=== PATIENT | female | born 1955 | race Two or more races ===

== ENCOUNTER 2023-09-21 13:52 | Inpatient (IN) | payer MEDICAID, MEDICARE, OTHER ==
[~2023-09-21] VITALS: Ht 152.4 cm; Wt 58.1 kg
[~2023-09-21 13:52] MED LIST: AUG875T PO; BLOO1KIT60 XX; EMPA1TAB PO; FURO1TAB31 PO; METF-370 PO; METH4PAK PO
[2023-09-21] MEDS: SODIUM CHLORIDE 0.9% 1,000 ML IV ONE (14:15)
[2023-09-21 15:26] LABS: Alanine Aminotransferase 21 U/L (7-40); Alkaline Phosphatase 142 U/L (46-116); Anion Gap 10 (5-15); Aspartate Aminotransferase 28 U/L (13-40); Basophils # (auto) 0 10 ^3/uL (0-0.2); Basophils % (auto) 0.2 % (0.0-2.0); Calcium 8.7 mg/dL (8.7-10.4); Carbon Dioxide 22 mmol/L (20-30); Chloride 88 mmol/L (98-107); Eosinophils # (auto) 0.1 10 ^3/uL (0-0.8); Eosinophils % (auto) 0.5 % (0.0-7.0); Hematocrit 40.9 % (36.0-46.0); Hemoglobin 13.4 g/dL (12.2-16.2); Lymphocytes # (auto) 0.8 10 ^3/uL (0.4-5.4); Lymphocytes % (auto) 7.6 % (10.0-50.0); Magnesium 2.4 mg/dL (1.6-2.6); Mean Corpuscular Hemoglobin 25.5 pg (28.0-32.0); Mean Corpuscular Hgb Conc. 32.8 g/dL (32.0-36.0); Mean Corpuscular Volume 77.9 fL (80.0-100.0); Monocytes # (auto) 0.6 10 ^3/uL (0-1.3); Monocytes % (auto) 5.5 % (0.0-12.0); Neutrophils # (auto) 9.3 10 ^3/uL (1.6-8.6); Neutrophils % (auto) 86.2 % (37.0-80.0); Potassium 5.3 mmol/L (3.5-5.1); Red Blood Cells 5.25 10^6/uL (4.0-5.20); Sodium 120 mmol/L (136-145); White Blood Cell 10.8 10^3/uL (4.4-10.8)
[2023-09-21 15:27] LABS: Bilirubin, Total 0.5 mg/dL (0.2-1.0); Red Cell Distribution Width 25.1 % (11.8-14.3)
[2023-09-21 15:37] LABS: Blood Urea Nitrogen 83 mg/dL (9-23)
[2023-09-21 15:38] LABS: Glucose 434 mg/dL (74-106)
[2023-09-21] MEDS ORDERED: ACETAMINOPHEN 325 MG TAB PO PRN (16:30)
[2023-09-21] MEDS ORDERED: NITROGLYCERIN 0.4 MG SL TAB SL PRN (16:30)
[2023-09-21] MEDS: SODIUM CHLORIDE 0.9% 500 ML IV ONE (16:30)
[2023-09-21] MEDS ORDERED: DEXTROSE (50%) 50ML SYRG IV PRN (16:30)
[2023-09-21] MEDS ORDERED: MORPHINE SULFATE INJ 2 MG/ml SYRG IV PRN (16:30)
[2023-09-21 17:37] LABS: Platelet Estimate Adequate
[2023-09-21 17:38] LABS: Anisocytosis Moderate
[2023-09-21] MEDS: ACCU-CHEK COMFORT CURVE STRIP VI SCH (18:15)
[2023-09-21] MEDS: SODIUM CHLORIDE 0.9% 1,000 ML IV SCH (18:21)
[2023-09-21] MEDS: InsuLIN REG 1unit/0.01ml Soln (100units/ml) SC SCH ×2 (18:22→23:24)
[2023-09-21] MEDS: HEPARIN SODIUM (PORCINE) 5000 UNITS/ML 1ML VIAL SC SCH (23:14)
[2023-09-22] MEDS: PHENYLEPHRINE IV 250 ML IV SCH (00:12)
[2023-09-22 01:30] VITALS: PULSE 90; RESP 17; O2SAT 96
[2023-09-22 01:54] LABS: Creatinine, Urine 35.44 mg/dL (30.0-125.0)
[2023-09-22 01:56] LABS: Urine Bacteria FEW /hpf (None Seen); Urine Blood 1+ /uL (Negative); Urine Clarity HAZY (Clear); Urine Color Colorless (Yellow); Urine Mucus FEW (None Seen); Urine Protein, UAD TRACE (Negative); Urine Specific Gravity 1.009 (1.001-1.035); Urine Urobilinogen Normal (Negative); Urine WBC 68 /hpf (0 - 5); Urine pH 5.5 (5.0-8.0)
[2023-09-22 05:42] LABS: Alanine Aminotransferase 15 U/L (7-40); Albumin 3.7 g/dL (3.2-4.8); Alkaline Phosphatase 109 U/L (46-116); Anion Gap 10 (5-15); Aspartate Aminotransferase 39 U/L (13-40); BUN/Creatinine Ratio 34.2 (10.0-20.0); Calcium 8.9 mg/dL (8.5-10.1); Carbon Dioxide 22 mmol/L (20-30); Chloride 97 mmol/L (98-107); Glucose 67 mg/dL (74-106); Potassium 4.3 mmol/L (3.5-5.1)
[2023-09-22 05:43] LABS: Bilirubin, Total 0.5 mg/dL (0.2-1.0); Total Protein 7.5 g/dL (5.7-8.2)
[2023-09-22 06:01] LABS: Blood Urea Nitrogen 66 mg/dL (9-23); Sodium 129 mmol/L (136-145)
[2023-09-22 11:30] LABS: Chloride 98 mmol/L (98-107); Potassium 4.7 mmol/L (3.5-5.1); Sodium 128 mmol/L (136-145)
[2023-09-22 11:31] LABS: Anion Gap 7 (5-15); Calcium 8.7 mg/dL (8.5-10.1); Carbon Dioxide 23 mmol/L (20-30)
[2023-09-22] MEDS: SODIUM CHLORIDE 0.9% 500 ML IV ONE (11:34)
[2023-09-22 11:36] LABS: BUN/Creatinine Ratio 24.7 (10.0-20.0); Glucose 283 mg/dL (74-106)
[2023-09-22 11:37] LABS: Blood Urea Nitrogen 49 mg/dL (9-23)
[2023-09-22 11:54] LABS: Protein, Urine 30.5 mg/dL (0.0-11.9)
[2023-09-22 11:57] LABS: Creatinine, Urine 37.06 mg/dL (30.0-125.0); Urine Protein/Creatinine Ratio 0.82
[2023-09-22] MEDS: SODIUM CHLORIDE 0.9% 1,000 ML IV SCH (13:13)
[2023-09-22] MEDS: cefTRIAXone 1GM/50ML D5W 50 ML IV ONE (13:25)
[2023-09-22] MEDS: CLINDAMYCIN 600MG IV 50 ML IV SCH (14:38)
[2023-09-22 19:30] VITALS: PULSE 98; RESP 18; O2SAT 97
[2023-09-23] MEDS: INSULIN LANTUS (GLARGINE) 1 /0.01ml (100units/ml) SC SCH (00:12)
[2023-09-23 06:35] LABS: Urine Bacteria FEW /hpf (None Seen); Urine Blood 3+ /uL (Negative); Urine Clarity HAZY (Clear); Urine Color Colorless (Yellow); Urine Hyaline Cast FEW /lpf (0 - 2); Urine Protein, UAD 1+ (Negative); Urine Specific Gravity 1.017 (1.001-1.035); Urine Urobilinogen Normal (Negative); Urine WBC 93 /hpf (0 - 5); Urine WBC Clumps PRESENT /hpf (None Seen)
[2023-09-23 07:34] LABS: Basophils # (auto) 0 10 ^3/uL (0-0.2); Basophils % (auto) 0.3 % (0.0-2.0); Eosinophils # (auto) 0.1 10 ^3/uL (0-0.8); Hemoglobin 12.5 g/dL (12.2-16.2); Lymphocytes # (auto) 1.3 10 ^3/uL (0.4-5.4); Mean Corpuscular Hgb Conc. 32.9 g/dL (32.0-36.0); Monocytes # (auto) 0.8 10 ^3/uL (0-1.3); Red Blood Cells 4.85 10^6/uL (4.0-5.20)
[2023-09-23 07:36] LABS: Eosinophils % (auto) 0.6 % (0.0-7.0); Lymphocytes % (auto) 13.2 % (10.0-50.0); Mean Corpuscular Hemoglobin 25.7 pg (28.0-32.0); Mean Corpuscular Volume 78.3 fL (80.0-100.0); Monocytes % (auto) 7.6 % (0.0-12.0); Neutrophils # (auto) 7.8 10 ^3/uL (1.6-8.6); Neutrophils % (auto) 78.3 % (37.0-80.0); Red Cell Distribution Width 24.6 % (11.8-14.3)
[2023-09-23 07:42] LABS: Chloride 106 mmol/L (98-107); Potassium 4.3 mmol/L (3.5-5.1)
[2023-09-23 07:43] LABS: Anion Gap 7 (5-15); Calcium 8.7 mg/dL (8.5-10.1); Carbon Dioxide 22 mmol/L (20-30); Sodium 135 mmol/L (136-145)
[2023-09-23 07:48] LABS: BUN/Creatinine Ratio 29.1 (10.0-20.0); Glucose 95 mg/dL (74-106)
[2023-09-23 07:49] LABS: Blood Urea Nitrogen 37 mg/dL (9-23)
[2023-09-23 08:19] VITALS: PULSE 86; RESP 20; O2SAT 96
[2023-09-23] MEDS: cefTRIAXone 1GM/50ML D5W 50 ML IV SCH (10:11)
[2023-09-23 10:23] LABS: INR 1.02 (0.9-1.15); Partial Thromboplastin Time 26.7 SEC (24.5-34.5); Prothrombin Time 10.7 sec (9.3-11.8)
[2023-09-23 12:22] VITALS: PULSE 60; RESP 16; O2SAT 94
[2023-09-23 13:00] VITALS: BP 107/36; PULSE 88; RESP 19; TEMP 97.5; O2SAT 100
[2023-09-23 17:00] VITALS: BP 128/70; PULSE 100; RESP 16; TEMP 98.6; O2SAT 96
[2023-09-23 20:00] VITALS: PULSE 82; PULSE 85; PULSE 87; RESP 18; TEMP 37
[2023-09-23 22:00] VITALS: BP 115/56; PULSE 104; RESP 20; TEMP 98.3; O2SAT 96
[2023-09-24 05:00] VITALS: BP 161/78; PULSE 78; RESP 18; TEMP 97.8; O2SAT 98
[2023-09-24 05:51] LABS: Alanine Aminotransferase 14 U/L (7-40); Albumin 2.9 g/dL (3.2-4.8); Alkaline Phosphatase 108 U/L (46-116); Anion Gap 6 (5-15); Aspartate Aminotransferase 24 U/L (13-40); BUN/Creatinine Ratio 14.5 (10.0-20.0); Bilirubin, Total 0.4 mg/dL (0.2-1.0); Blood Urea Nitrogen 16 mg/dL (9-23); Calcium 8.1 mg/dL (8.7-10.4); Carbon Dioxide 17 mmol/L (20-30); Chloride 108 mmol/L (98-107); Glucose 205 mg/dL (74-106); Potassium 4.6 mmol/L (3.5-5.1); Sodium 131 mmol/L (136-145); Total Protein 6.4 g/dL (5.7-8.2)
[2023-09-24 08:00] VITALS: PULSE 89; RESP 16
[2023-09-24 09:04] VITALS: BP 134/72; PULSE 67; RESP 21; TEMP 97.6; O2SAT 98
[2023-09-24] MEDS: SODIUM BICARB 50mEq/50ml Vial 50 ML in SOD CHL 0.45% 1,000 ML IV SCH (11:30)
[2023-09-24] MEDS: BUMETANIDE 1mg/4ml VIAL (0.25mg/ml) IV ONE (11:57)
[2023-09-24 13:29] VITALS: BP 158/76; PULSE 81; RESP 19; TEMP 97.9; O2SAT 97
[2023-09-24] MEDS: levoFLOXacin 500 MG TAB PO ONE (14:31)
[2023-09-24 20:00] VITALS: BP 104/57; PULSE 104; PULSE 93; RESP 16; TEMP 97.7; O2SAT 98
[2023-09-25] VITALS (7 sets, daily range): BP systolic 119–149; BP diastolic 60–82; PULSE 68–90; RESP 16–20; TEMP 97.6–98.4; O2SAT 96–99
[2023-09-25] MEDS ORDERED: LISI10TA34 PO (09:12)
[2023-09-25] MEDS: levoFLOXacin 500 MG TAB PO SCH (10:34)
[2023-09-25] MEDS: IBUPROFEN 600 MG TAB PO PRN (18:22)
[2023-09-25 21:22] LABS: COVID19 ANTIGEN SOFIA FIA NEGATIVE (NEGATIVE)
[2023-09-25] MEDS: SODIUM BICARBONATE 650 MG TAB PO SCH (21:45)
[2023-09-26 05:00] VITALS: BP 139/68; PULSE 73; RESP 16; TEMP 97.3; O2SAT 95
[2023-09-26 07:30] VITALS: BP 139/68; PULSE 73; PULSE 79; RESP 16; TEMP 98.2; O2SAT 95
[2023-09-26 09:00] VITALS: BP 120/70; PULSE 101; RESP 20; TEMP 98; O2SAT 95
[2023-09-26 09:27] LABS: Chloride 104 mmol/L (98-107); Potassium 4.6 mmol/L (3.5-5.1); Sodium 131 mmol/L (136-145)
[2023-09-26 09:29] LABS: Anion Gap 8 (5-15); Calcium 8.9 mg/dL (8.5-10.1); Carbon Dioxide 19 mmol/L (20-30)
[2023-09-26 09:34] LABS: BUN/Creatinine Ratio 12.2 (10.0-20.0); Blood Urea Nitrogen 12 mg/dL (9-23); Glucose 126 mg/dL (74-106)
[2023-09-26 13:00] VITALS: BP 148/87; PULSE 88; RESP 20; TEMP 98.4; O2SAT 97
[2023-09-26 15:18] VITALS: BP 134/72; PULSE 73; RESP 16; TEMP 36.7; O2SAT 95
== END 2023-09-26 16:50 | DRG 637 ==
LOC: ER 13:52 → TELE 16:31 → TELE-CENTR 16:31 → TELE-EAST 23:52 → TELE 09-22 00:19 → TELE-CENTR 09-23 12:04
PROVIDERS: ADMIT Nurse Practitioner Family; ATTEND Family Medicine
PROC: 05HC33Z Insertion of Infusion Device into Left Basilic Vein, Percutaneous Approach (ICD-10-PCS; principal; 2023-09-25)
PROC: B54NZZA Ultrasonography of Left Upper Extremity Veins, Guidance (ICD-10-PCS; 2023-09-25)
DX: E11.65 Type 2 diabetes mellitus with hyperglycemia (principal); I21.A1 Myocardial infarction type 2; N17.0 Acute kidney failure with tubular necrosis; L97.919 Non-pressure chronic ulcer of unspecified part of right lower leg with unspecified severity; L03.115 Cellulitis of right lower limb; E87.1 Hypo-osmolality and hyponatremia; N13.6 Pyonephrosis; E87.20 Acidosis, unspecified; L03.116 Cellulitis of left lower limb; L97.929 Non-pressure chronic ulcer of unspecified part of left lower leg with unspecified severity; E11.22 Type 2 diabetes mellitus with diabetic chronic kidney disease; E86.0 Dehydration; Z20.822 Contact with and (suspected) exposure to COVID-19; E87.5 Hyperkalemia; N30.81 Other cystitis with hematuria; N81.3 Complete uterovaginal prolapse; B96.1 Klebsiella pneumoniae [K. pneumoniae] as the cause of diseases classified elsewhere; I12.9 Hypertensive chronic kidney disease with stage 1 through stage 4 chronic kidney disease, or unspecified chronic kidney disease; N18.9 Chronic kidney disease, unspecified; I51.7 Cardiomegaly; Z88.6 Allergy status to analgesic agent; Z80.0 Family history of malignant neoplasm of digestive organs; E11.621 Type 2 diabetes mellitus with foot ulcer
CPT/HCPCS: 36415; 71045; 74176; 76775; 76856; 80048; 80053; 81001; 82010; 82306; 82570; 82962; 83036; 83605; 83735; 83880; 83930; 83970; 84100; 84156; 84300; 84484; 85025; 85610; 85730; 87040; 87086; 87088; 87186; 87426; 93925; 97110; 97116; 97163; 99291; G0378; J1815; J3490

== ENCOUNTER → 2024-01-16 | Outpatient (CLI) | payer MEDICARE, MEDICAID ==
[~2024-01-16] MED LIST changes: -AUG875T PO; -BLOO1KIT60 XX; +CARV-216 PO; +INSREG3 SC; -METH4PAK PO; +SACU1TAB7 PO
[2024-01-16 14:30] LABS: Urine Bacteria FEW /hpf (None Seen); Urine Blood Negative /uL (Negative); Urine Clarity Turbid (Clear); Urine Color Yellow (Yellow); Urine Hyaline Cast FEW /lpf (0 - 2); Urine Mucus FEW (None Seen); Urine Protein, UAD 1+ (Negative); Urine Specific Gravity 1.033 (1.001-1.035); Urine Urobilinogen Normal (Negative); Urine WBC 23 /hpf (0 - 5); Urine pH 5.5 (5.0-9.0)
[2024-01-16 14:35] LABS: Alanine Aminotransferase 23 U/L (7-40); Alkaline Phosphatase 115 U/L (46-116); Anion Gap 5 (5-15); Aspartate Aminotransferase 13 U/L (13-40); BUN/Creatinine Ratio 17.6 (10.0-20.0); Blood Urea Nitrogen 22 mg/dL (9-23); Calcium 9.7 mg/dL (8.5-10.1); Carbon Dioxide 26 mmol/L (20-30); Chloride 109 mmol/L (98-107); Glucose 181 mg/dL (74-106); Potassium 4.2 mmol/L (3.5-5.1); Sodium 140 mmol/L (136-145)
[2024-01-16 14:36] LABS: Albumin 4.3 g/dL (3.2-4.8); Bilirubin, Total 0.4 mg/dL (0.2-1.0); Creatine Kinase IFCC 69 U/L (34-145); Total Protein 7.8 g/dL (5.7-8.2)
== END | disposition home or self-care (01) ==
LOC: LAB 13:41
PROVIDERS: ATTEND Internal Medicine
DX: Z12.11 Encounter for screening for malignant neoplasm of colon (principal); Z11.59 Encounter for screening for other viral diseases; E11.22 Type 2 diabetes mellitus with diabetic chronic kidney disease; E11.69 Type 2 diabetes mellitus with other specified complication; E11.29 Type 2 diabetes mellitus with other diabetic kidney complication; N18.9 Chronic kidney disease, unspecified; R82.90 Unspecified abnormal findings in urine; E78.2 Mixed hyperlipidemia; I25.10 Atherosclerotic heart disease of native coronary artery without angina pectoris
CPT/HCPCS: 36415; 80053; 81001; 82550; 86803

== ENCOUNTER → 2024-03-08 | Outpatient (CLI) | payer MEDICARE, MEDICAID | END | disposition home or self-care (01) | LOC: LAB 15:12 | PROVIDERS: ATTEND Internal Medicine | DX: Z12.11 Encounter for screening for malignant neoplasm of colon (principal); Z11.59 Encounter for screening for other viral diseases; E11.22 Type 2 diabetes mellitus with diabetic chronic kidney disease; N18.9 Chronic kidney disease, unspecified; E78.2 Mixed hyperlipidemia; E11.29 Type 2 diabetes mellitus with other diabetic kidney complication; R82.90 Unspecified abnormal findings in urine; E11.9 Type 2 diabetes mellitus without complications; I25.10 Atherosclerotic heart disease of native coronary artery without angina pectoris | CPT/HCPCS: 82274 ==

== ENCOUNTER → 2024-04-25 | Day surgery (SDC) | payer MEDICARE, MEDICAID ==
[2024-04-19 10:30] LABS: Urine Bacteria None Seen /hpf (None Seen)
[2024-04-19 11:05] LABS: Basophils # (auto) 0 10 ^3/uL (0-0.2); Basophils % (auto) 0.4 % (0.0-2.0); Eosinophils # (auto) 0.1 10 ^3/uL (0-0.8); Eosinophils % (auto) 0.9 % (0.0-7.0); Hematocrit 42.6 % (36.0-46.0); Hemoglobin 14.7 g/dL (12.2-16.2); Lymphocytes # (auto) 1.4 10 ^3/uL (0.4-5.4); Lymphocytes % (auto) 14.3 % (10.0-50.0); Mean Corpuscular Hemoglobin 32.7 pg (28.0-32.0); Mean Corpuscular Hgb Conc. 34.4 g/dL (32.0-36.0); Monocytes # (auto) 0.6 10 ^3/uL (0-1.3); Monocytes % (auto) 5.9 % (0.0-12.0); Neutrophils # (auto) 7.6 10 ^3/uL (1.6-8.6); Neutrophils % (auto) 78.5 % (37.0-80.0); Nucleated Red Blood Cells % 0.1 %; Platelet Count (auto) 310 10^3/uL (140-450); Red Blood Cells 4.49 10^6/uL (4.0-5.20); White Blood Cell 9.6 10^3/uL (4.4-10.8)
[2024-04-19 11:22] LABS: INR 1.02 (0.9-1.15); Partial Thromboplastin Time 26.8 SEC (24.5-34.5); Prothrombin Time 10.8 sec (9.3-11.8)
[2024-04-19 11:45] LABS: Urine Blood Negative /uL (Negative); Urine Clarity Clear (Clear); Urine Color Light-Yellow (Yellow); Urine Hyaline Cast FEW /lpf (0 - 2); Urine Protein, UAD Negative (Negative); Urine Specific Gravity 1.012 (1.001-1.035); Urine Urobilinogen Normal (Negative); Urine WBC 1 /hpf (0 - 5); Urine pH 5.5 (5.0-9.0)
[2024-04-19 11:53] LABS: Alanine Aminotransferase 41 U/L (7-40); Albumin 4.6 g/dL (3.2-4.8); Alkaline Phosphatase 139 U/L (46-116); Aspartate Aminotransferase 38 U/L (13-40); BUN/Creatinine Ratio 18.5 (10.0-20.0); Bilirubin, Total 0.4 mg/dL (0.2-1.0); Blood Urea Nitrogen 23 mg/dL (9-23); Chloride 102 mmol/L (98-107); Glucose 184 mg/dL (74-106); Potassium 3.6 mmol/L (3.5-5.1); Sodium 135 mmol/L (136-145); Total Protein 8.6 g/dL (5.7-8.2)
[2024-04-19 12:11] LABS: Anion Gap 12 (5-15); Carbon Dioxide 21 mmol/L (20-30)
[~2024-04-25] VITALS: Ht 152.4 cm; Wt 64.9 kg
[~2024-04-25] MED LIST changes: +ASPI1TAB20 PO; +ATOR-507 PO; +InsuLIN REG 1unit/0.01ml Soln (100units/ml) ONE; +LISI20TA56 PO; +MEPERIDINE HCL (25 MG/ML) 1ML VIAL ONE; +METH4TAB44 PO; +MIDAZOLAM HCL 2MG/2ML 2ml VIAL (1mg/ml) ONE; +MULT1POW PO; +PROPOFOL 10 MG/ML 20 ML IV ONE; -SACU1TAB7 PO; +fentaNYL CITRATE 100 MCG/2 ML VL ONE
[2024-04-25] MEDS: InsuLIN REG 1unit/0.01ml Soln (100units/ml) SC ONE (10:50)
[2024-04-25 12:05] VITALS: PULSE 81; RESP 14; TEMP 98.5; O2SAT 100
[2024-04-25 12:35] VITALS: BP 101/64; PULSE 86; RESP 15; O2SAT 99
== END | disposition home or self-care (01) ==
LOC: GI 08:52
PROVIDERS: ATTEND Internal Medicine Gastroenterology
DX: R19.5 Other fecal abnormalities (principal); D12.2 Benign neoplasm of ascending colon; D12.7 Benign neoplasm of rectosigmoid junction; K57.30 Diverticulosis of large intestine without perforation or abscess without bleeding; E11.9 Type 2 diabetes mellitus without complications; I10 Essential (primary) hypertension; Z88.8 Allergy status to other drugs, medicaments and biological substances; Z98.41 Cataract extraction status, right eye; Z98.42 Cataract extraction status, left eye; Z90.49 Acquired absence of other specified parts of digestive tract; Z79.82 Long term (current) use of aspirin; Z79.84 Long term (current) use of oral hypoglycemic drugs; Z79.899 Other long term (current) drug therapy; Z88.6 Allergy status to analgesic agent
CPT/HCPCS: 36415; 45385; 80053; 81001; 82962; 85025; 85610; 85730; 88305; J1815; J2175; J2250; J2704; J3010; J7030

== ENCOUNTER → 2024-05-21 | Outpatient (CLI) | payer MEDICARE, MEDICAID ==
[~2024-05-21] MED LIST changes: -InsuLIN REG 1unit/0.01ml Soln (100units/ml) ONE; -MEPERIDINE HCL (25 MG/ML) 1ML VIAL ONE; -MIDAZOLAM HCL 2MG/2ML 2ml VIAL (1mg/ml) ONE; -PROPOFOL 10 MG/ML 20 ML IV ONE; -fentaNYL CITRATE 100 MCG/2 ML VL ONE
[2024-05-21 10:11] LABS: Chloride 105 mmol/L (98-107); Potassium 4.1 mmol/L (3.5-5.1); Sodium 133 mmol/L (136-145)
[2024-05-21 10:12] LABS: Anion Gap 8 (5-15); Calcium 9.2 mg/dL (8.7-10.4); Carbon Dioxide 20 mmol/L (20-31)
[2024-05-21 10:17] LABS: BUN/Creatinine Ratio 16.4 (10.0-20.0); Blood Urea Nitrogen 20 mg/dL (9-23); Glucose 328 mg/dL (74-106)
== END | disposition home or self-care (01) ==
LOC: LAB 09:09
PROVIDERS: ATTEND Internal Medicine
DX: N17.9 Acute kidney failure, unspecified (principal)
CPT/HCPCS: 36415; 80048

== ENCOUNTER 2024-09-01 17:35 | Emergency (ER) | payer MEDICARE, MEDICAID ==
[~2024-09-01] VITALS: Ht 152.4 cm; Wt 68.2 kg
[2024-09-01 17:40] VITALS: BP 169/95; RESP 20; O2SAT 99
[2024-09-01 17:42] VITALS: PULSE 99
--- NOTE | 2024-09-01 17:46 | ECG ---
[facility] Test Date: 2024-09-01 Test Time: 17:42:30 Pat Name: PB CELESTIN Department: ED Room: Gender: F Machine Fixer: : 1955 Requested By: DIANA ANSARI Order Number: [id number] Reading MD: Measurements Intervals [place] Rate: 99 P: 63 [place]: 156 QRS: -7 QRSD: 101 T: 72 QT: 381 QTc: 489 Interpretive Statements Sinus rhythm Left atrial enlargement Borderline prolonged QT interval Please click the below link to view image of tracing.
--- NOTE | 2024-09-01 18:16 | DVH ---
CHEST RADIOGRAPH Indication: CP Technique: Single frontal view of the chest was obtained COMPARISON: XY CHEST PORTABLE on DOS: 09/22/23, XY CHEST XRAY 1 VIEW on DOS: 08/07/23, XY CHEST PORTABLE on DOS: 08/04/23 FINDINGS: Lines and Tubes: None Lungs: Clear Pleura: No effusion. No pneumothorax. Cardiomediastinal contours: Unremarkable Bones: Unremarkable IMPRESSION: No acute disease.
[2024-09-01 18:33] LABS: Basophils # (auto) 0.1 10 ^3/uL (0-0.2); Basophils % (auto) 0.4 % (0.0-2.0); Eosinophils # (auto) 0 10 ^3/uL (0-0.8); Hematocrit 46.1 % (36.0-46.0); Hemoglobin 15.3 g/dL (12.2-16.2); Lymphocytes # (auto) 0.7 10 ^3/uL (0.4-5.4); Lymphocytes % (auto) 3.8 % (10.0-50.0); Mean Corpuscular Hemoglobin 30.3 pg (28.0-32.0); Mean Corpuscular Hgb Conc. 33.3 g/dL (32.0-36.0); Mean Corpuscular Volume 91.3 fL (80.0-100.0); Monocytes # (auto) 0.3 10 ^3/uL (0-1.3); Monocytes % (auto) 1.7 % (0.0-12.0); Neutrophils % (auto) 94.1 % (37.0-80.0); Platelet Count (auto) 330 10^3/uL (140-450); Red Blood Cells 5.05 10^6/uL (4.0-5.20); Red Cell Distribution Width 14.1 % (11.8-14.3); White Blood Cell 18.1 10^3/uL (4.4-10.8)
[2024-09-01 18:47] LABS: INR 1.03 (0.9-1.15); Partial Thromboplastin Time 25.3 SEC (24.5-34.5); Prothrombin Time 10.9 sec (9.3-11.8)
[2024-09-01 19:12] LABS: Alanine Aminotransferase 25 U/L (7-40); Albumin 4.7 g/dL (3.2-4.8); Anion Gap 16 (5-15); Aspartate Aminotransferase 24 U/L (13-40); BUN/Creatinine Ratio 18.6 (10.0-20.0); Bilirubin, Total 0.7 mg/dL (0.2-1.0); Carbon Dioxide 23 mmol/L (20-31); Magnesium 2.2 mg/dL (1.6-2.6); Potassium 3.7 mmol/L (3.5-5.1)
[2024-09-01] MEDS ORDERED: ONDANSETRON HCL 4 MG/2 ML VIAL IV ONE (19:15)
[2024-09-01] MEDS ORDERED: SODIUM CHLORIDE 0.9% 1,000 ML IV ONE (19:15)
[2024-09-01 19:20] LABS: Alkaline Phosphatase 169 U/L (46-116); Blood Urea Nitrogen 24 mg/dL (9-23); Calcium 10.8 mg/dL (8.7-10.4); Chloride 95 mmol/L (98-107); Glucose 318 mg/dL (74-106); Sodium 134 mmol/L (136-145); Total Protein 9.3 g/dL (5.7-8.2)
--- NOTE | 2024-09-01 19:26 | ED.PDOC ---
HPI Comments 69 y.o male with PMHx of HTN and DM, presents to the ED via EMS for a chief complaint of chest pain associated with generalized weakness and blurred vision that presented earlier today. Patient reports symptoms came onset spontaneously, states she checked her BG at home and it read 470. Family present with patient reports patient has had frequent elevated BG readings the past couple of days. Patient denies any SOB, nausea, vomiting, diarrhea, fever, or chills. EMS reported on scene patient had a BG of 375. Chief Complaint: Chest Pain Time Seen by MD: 19:08 Primary Care Provider: UNKNOWN Reviewed Notes: Nurses Notes, Medications, Allergies Allergies: Coded Allergies: Acetaminophen (Verified Allergy, Severe, Hives, 08/09/23) Home Meds Reported Medications Multiple Vitamins W/ Minerals (Centrum Multivitamin Flav) 1 Pow Pow, 1 POW PO DAILY, POW 04/23/24 Aspirin (Aspir-81) 81 Mg Tab, 81 MG PO DAILY, TAB 04/23/24 Atorvastatin Calcium (Lipitor) 40 Mg Tab, 40 MG PO DAILY, TAB 04/23/24 Lisinopril (Lisinopril) 20 Mg Tab, 10 MG PO DAILY, TAB 04/23/24 Methylprednisolone (Methylprednisolone) 4 Mg Tab, 4 MG PO DAILY, TAB 04/23/24 Metformin Hydrochloride (Metformin Hcl) 500 Mg Tab, 1 TAB PO BID for DIABETES 12/20/23 Furosemide (Lasix) 40 Mg Tab, 1 TAB PO DAILY for CHF 12/20/23 Empagliflozin (Jardiance) 10 Mg Tab, 1 TAB PO DAILY for DIABETES 12/20/23 Insulin Regular (Human) (Humulin R) 100 Unit/Ml Inj, UNIT SC ACHS for PER SLIDING SCALE 12/18/23 Carvedilol (COREG) 12.5 Mg Tab, 1 TAB PO BID for HYPERTENSION 12/18/23 Information Source: Patient Mode of Arrival: EMS Severity: Moderate Timing: Hours Duration: Since onset Location: Substernal Radiation: No Radiation Quality: Aching Onset: At Rest Cardiac Risk Factors: HTN, Diabetes History of: None Associated Signs and Symptoms: Other Past Medical History PAST MEDICAL HISTORY: DM, HTN Surgical History: Denies all surgeries DIAL MOUNTER History: No Pertinent DIAL MOUNTER History Family History Family History: Reviewed,noncontributory to illness, No family hx of Cancer, No family hx of DM, No family hx of Heart kane, No family hx of HTN, No family hx ofKidney kane, No family hx of Liver kane, No family hx of Lung kane, No family hx of Stroke Social History Smoker: Non-Smoker Alcohol: Denies ETOH Use Drugs: Denies Drug Use Lives In: Home Constitutional: reports: weakness; denies: chills, diaphoresis, fatigue, fever, malaise, sweats, others EENTM: reports: blurred vision; denies: double vision, ear bleeding, ear discharge, ear drainage, ear pain, ear ringing, eye pain, eye redness, hearing loss, mouth pain, mouth swelling, nasal discharge, nose bleeding, nose congestion, nose pain, photophobia, tearing, throat pain, throat swelling, voice changes, others Respiratory: denies: cough, hemoptysis, orthopnea, SOB at rest, shortness of breath, SOB with excertion, stridor, wheezing, others Cardiovascular: reports: chest pain; denies: dizzy spells, diaphoresis, Dyspnea on exertion, edema, irregular heart beat, left arm pain, lightheadedness, palpitations, PND, syncope, others Gastrointestinal: denies: abdomen distended, abdominal pain, blood streaked bowels, constipated, diarrhea, dysphagia, difficulty swallowing, hematemesis, melena, nausea, poor appetite, poor fluid intake, rectal bleeding, rectal pain, vomiting, others Genitourinary: denies: abnormal vagina bleeding, burning, dyspareunia, dysuria, flank pain, frequency, hematuria, incontinence, pain, , vagina discharge, urgency, others Neurological: denies: dizziness, fainting, headache, left sided numbness, left sided weakness, numbness, paresthesia, pre-existing deficit, right sided numbness, right sided weakness, seizure, speech problems, tingling, tremors, weakness, others Musculoskeletal: denies: back pain, gout, joint pain, joint swelling, muscle pain, muscle stiffness, neck pain, others Integumetry: denies: bruises, change in color, change in hair/nails, dryness, laceration, lesions, lumps, rash, wounds, others Allergic/Immunocompromised: denies: Difficulty Healing, Frequent Infections, Hives, Itching, others Hematologic/Lymphatic: denies: anemia, blood clots, easy bleeding, easy bruising, swollen glands, others Endocrine: denies: excessive hunger, excessive sweating, excessive thirst, excessive urination, flushing, intolerance to cold, intolerance to heat, unexplained weight gain, unexplained weight loss, others Psychiatric: denies: anxiety, bipolar disorder, depression, hopeless, panic disorder, schizophrenia, sleepless, suicidal, others All Other Systems: Reviewed and Negative Physical Exam General Appearance: Other (Tired appearing but in no significant distress) HEENT: Normal ENT Inspection, Pharynx Normal, TMs Normal Neck: Full Range of Motion, Non-Tender, Normal, Normal Inspection Respiratory: Chest Non-Tender, Lungs Clear, No Accessory Muscle Use, No Respiratory Distress, Normal Breath Sounds Cardiovascular: No Edema, No JVD, No Murmur, No Gallop, Normal Peripheral Pulses, Regular Rate/Rhythm Breast Exam: Deferred Gastrointestinal: No Organomegaly, Non Tender, No Pulsatile Mass, Normal Bowel Sounds, Soft Genitalia: Deferred Pelvic: Deferred Rectal: Deferred Extremities: No calf tenderness, Normal capillary refill, Normal inspection, Normal range of motion, Non-tender, No pedal edema Musculoskeletal : Apperance: Normal Neurologic: Alert, chain saw mechanic II-XII nml as Tested, No Motor Deficits, Normal Affect, Normal Mood, No Sensory Deficits Cerebellar Function: Normal Reflexes: Normal Skin: Dry, Normal Color, Warm Lymphatic: No Adenopathy Was a procedure done? Was a procedure done?: No CP Differential Dx Differential Diagnosis: Anxiety / Panic Attack, Electrolyte Disorder Differential Diagnosis: Angina, Chest Wall Pain, Costochondritis X-Ray, Labs, Meds, VS Vital Signs Date Time Temp Pulse Resp B/P (MAP) Pulse Ox O2 Delivery O2 Flow Rate FiO2 09/01/24 17:42 99 09/01/24 17:40 98.3 78 20 169/95 (119) 99 Lab Test 09/01/24 19:34 09/01/24 18:22 Range/Units Troponin I High Sensitivity 11 9 </=34 ng/L White Blood Count 18.1 H 4.4-10.8 10^3/uL Red Blood Count 5.05 4.0-5.20 10^6/uL Hemoglobin 15.3 12.2-16.2 g/dL Hematocrit 46.1 H 36.0-46.0 % Mean Corpuscular Volume 91.3 80.0-100.0 fL Mean Corpuscular Hemoglobin 30.3 28.0-32.0 pg Mean Corpuscular Hemoglobin Concent 33.3 32.0-36.0 g/dL Red Cell Distribution Width 14.1 11.8-14.3 % Platelet Count 330 140-450 10^3/uL Mean Platelet Volume 8.1 6.9-10.8 fL Neutrophils (%) (Auto) 94.1 H 37.0-80.0 % Lymphocytes (%) (Auto) 3.8 L 10.0-50.0 % Monocytes (%) (Auto) 1.7 0.0-12.0 % Eosinophils (%) (Auto) 0.0 0.0-7.0 % Basophils (%) (Auto) 0.4 0.0-2.0 % Neutrophils # (Auto) 17.0 H 1.6-8.6 10 ^3/uL Lymphocytes # (Auto) 0.7 0.4-5.4 10 ^3/uL Monocytes # (Auto) 0.3 0-1.3 10 ^3/uL Eosinophils # (Auto) 0 0-0.8 10 ^3/uL Basophils # (Auto) 0.1 0-0.2 10 ^3/uL Nucleated Red Blood Cells 0.0 % Prothrombin Time 10.9 9.3-11.8 sec Prothrombin Time INR 1.03 0.9-1.15 Activated Partial Thromboplast Time 25.3 24.5-34.5 SEC Sodium Level 134 L 136-145 mmol/L Potassium Level 3.7 3.5-5.1 mmol/L Chloride Level 95 L 98-107 mmol/L Carbon Dioxide Level 23 20-31 mmol/L Anion Gap 16 H 5-15 Blood Urea Nitrogen 24 H 9-23 mg/dL Creatinine 1.29 H 0.550-1.02 mg/dL Glomerular Filtration Rate Calc 45 >90 mL/min BUN/Creatinine Ratio 18.6 10.0-20.0 Serum Glucose 318 H 74-106 mg/dL Calcium Level 10.8 H 8.7-10.4 mg/dL Magnesium Level 2.2 1.6-2.6 mg/dL Total Bilirubin 0.7 0.2-1.0 mg/dL Aspartate Amino Transferase (AST) 24 13-40 U/L Alanine Aminotransferase (ALT) 25 7-40 U/L Alkaline Phosphatase 169 H 46-116 U/L B-Type Natriuretic Peptide 423.81 0-100 pg/mL Total Protein 9.3 H 5.7-8.2 g/dL Albumin 4.7 3.2-4.8 g/dL Beta-Hydroxybutyric Acid 0.673 H < 0.4 mmol/L X-Ray, Labs, Meds, VS Comment 69-year-old female here today for generalized body aches, chest pain found to be hyperglycemic. Workup overall remarkable for mild DKA. Leukocytosis to 18 but no evidence of infection at this time, urine pending although patient asymptomatic from a urinary perspective. Patient was given fluids and started on antibiotics to cover for possible UTI. Plan made to admit the patient for further management and primarily DKA and to allow blood cultures to results. Time of 1ST Reevaluation: 19:14 Reevaluation 1ST: Unchanged Patient Education/Counseling: Diagnosis, Treatment, Prognosis Family Education/Counseling: No Family Present Departure 1 Departure Time of Disposition: 20:59 Impression: Primary Impression: DKA (diabetic ketoacidosis) Additional Impressions: Chest pain Weakness Disposition: 09 ADMITTED INPATIENT Admit to: Tele Condition: Guarded Critical Care Note Critical Care Time?: Yes (35 min-critical care time only) Stability Stability form required: No Heart Score Heart Score: Heart Score Response (Comments) Value History N/A 0 EKG N/A 0 Age N/A 0 Risk Factors N/A 0 Troponin N/A 0 Total 0 I personally scribed for DIANA ANSARI MD ([email or web address]) on 09/01/24 at 19:26. Electronically submitted by Fiona Wilson ([email or web address]). DIANA ANSARI MD Sep 01, 2024 19:26
[2024-09-01] MEDS ORDERED: cefTRIAXone 1GM/50ML D5W 50 ML IV ONE (21:00)
== END 2024-09-01 22:43 | disposition left against medical advice (07) ==
LOC: EDBD 17:35 → EDUNIT# 17:35 → ER 17:41
DX: R07.89 Other chest pain (principal); R53.1 Weakness; E11.10 Type 2 diabetes mellitus with ketoacidosis without coma; Z88.6 Allergy status to analgesic agent; Z79.899 Other long term (current) drug therapy
CPT/HCPCS: 36415; 71045; 80053; 82010; 83735; 83880; 84484; 85025; 85610; 85730; 93005

== ENCOUNTER 2024-09-17 11:14 | Inpatient (IN) | payer MEDICARE, MEDICAID ==
[~2024-09-17] VITALS: Ht 157.5 cm; Wt 68.2 kg
--- NOTE | 2024-09-17 11:51 | ED.PDOC ---
General HPI Comments 69 year old female YURY presents to the ED with chief complaint of hematuria. Patient reports that she had a Mariano catheter placed a week ago at [facility] due to an inability to void. Patient relays that she has now been experiencing pain to her vaginal region along with associated hematuria that started to appear in her Mariano bag since yesterday. Patient denies any N/V/D, abdominal pain, dizziness, fever, chills, chest pain, or SOB. Chief Complaint: Urinary Time Seen by MD: 11:43 Primary Care Provider: UNKNOWN Reviewed notes: Nurses Notes, Medications, Allergies Allergies: Coded Allergies: Acetaminophen (Verified Allergy, Severe, Hives, 08/09/23) Home Meds Reported Medications Multiple Vitamins W/ Minerals (Centrum Multivitamin Flav) 1 Pow Pow, 1 POW PO DAILY, POW 04/23/24 Aspirin (Aspir-81) 81 Mg Tab, 81 MG PO DAILY, TAB 04/23/24 Atorvastatin Calcium (Lipitor) 40 Mg Tab, 40 MG PO DAILY, TAB 04/23/24 Lisinopril (Lisinopril) 20 Mg Tab, 10 MG PO DAILY, TAB 04/23/24 Methylprednisolone (Methylprednisolone) 4 Mg Tab, 4 MG PO DAILY, TAB 04/23/24 Metformin Hydrochloride (Metformin Hcl) 500 Mg Tab, 1 TAB PO BID for DIABETES 12/20/23 Furosemide (Lasix) 40 Mg Tab, 1 TAB PO DAILY for CHF 12/20/23 Empagliflozin (Jardiance) 10 Mg Tab, 1 TAB PO DAILY for DIABETES 12/20/23 Insulin Regular (Human) (Humulin R) 100 Unit/Ml Inj, UNIT SC ACHS for PER SLIDING SCALE 12/18/23 Carvedilol (COREG) 12.5 Mg Tab, 1 TAB PO BID for HYPERTENSION 12/18/23 Information Source: Patient Mode of Arrival: Wheelchair Severity: Moderate Inability to void: Moderate Timing: Days Duration: Since onset Prehospital treatment: None Onset: Spontaneous Symptoms: Dysuria, Hematuria History of: Chronic indwelling mariano associated signs and symptoms: Dysuria, Hematuria Past Medical History PAST MEDICAL HISTORY: DM, HTN Surgical History: Denies all surgeries MANAGER TALENT History: No Pertinent MANAGER TALENT History Family History Family History: Reviewed,noncontributory to illness, No family hx of Cancer, No family hx of DM, No family hx of Heart kane, No family hx of HTN, No family hx ofKidney kane, No family hx of Liver kane, No family hx of Lung kane, No family hx of Stroke Social History Smoker: Non-Smoker Alcohol: Denies ETOH Use Drugs: Denies Drug Use Lives In: Home Constitutional: denies: chills, diaphoresis, fatigue, fever, malaise, sweats, weakness, others EENTM: denies: blurred vision, double vision, ear bleeding, ear discharge, ear drainage, ear pain, ear ringing, eye pain, eye redness, hearing loss, mouth pain, mouth swelling, nasal discharge, nose bleeding, nose congestion, nose pain, photophobia, tearing, throat pain, throat swelling, voice changes, others Respiratory: denies: cough, hemoptysis, orthopnea, SOB at rest, shortness of breath, SOB with excertion, stridor, wheezing, others Cardiovascular: denies: chest pain, dizzy spells, diaphoresis, Dyspnea on exertion, edema, irregular heart beat, left arm pain, lightheadedness, palpitations, PND, syncope, others Gastrointestinal: denies: abdomen distended, abdominal pain, blood streaked bowels, constipated, diarrhea, dysphagia, difficulty swallowing, hematemesis, melena, nausea, poor appetite, poor fluid intake, rectal bleeding, rectal pain, vomiting, others Genitourinary: reports: dysuria, hematuria; denies: abnormal vagina bleeding, burning, dyspareunia, flank pain, frequency, incontinence, pain, , vagina discharge, urgency, others Neurological: denies: dizziness, fainting, headache, left sided numbness, left sided weakness, numbness, paresthesia, pre-existing deficit, right sided numbness, right sided weakness, seizure, speech problems, tingling, tremors, weakness, others Musculoskeletal: denies: back pain, gout, joint pain, joint swelling, muscle pain, muscle stiffness, neck pain, others Integumetry: denies: bruises, change in color, change in hair/nails, dryness, laceration, lesions, lumps, rash, wounds, others Allergic/Immunocompromised: denies: Difficulty Healing, Frequent Infections, Hives, Itching, others Hematologic/Lymphatic: denies: anemia, blood clots, easy bleeding, easy bruising, swollen glands, others Endocrine: denies: excessive hunger, excessive sweating, excessive thirst, excessive urination, flushing, intolerance to cold, intolerance to heat, unexplained weight gain, unexplained weight loss, others Psychiatric: denies: anxiety, bipolar disorder, depression, hopeless, panic disorder, schizophrenia, sleepless, suicidal, others All Other Systems: Reviewed and Negative Physical Exam General Appearance: Moderate Distress, Normal HEENT: Normal ENT Inspection, PERRL/EOMI Neck: Full Range of Motion, Non-Tender, Normal, Normal Inspection Respiratory: Chest Non-Tender, Lungs Clear, No Accessory Muscle Use, No Respiratory Distress, Normal Breath Sounds Cardiovascular: No Edema, No JVD, No Murmur, No Gallop, Normal Peripheral Pulses, Regular Rate/Rhythm Breast Exam: Deferred Gastrointestinal: No Organomegaly, Non Tender, No Pulsatile Mass, Normal Bowel Sounds, Soft Genitalia: Deferred Pelvic: Deferred Rectal: Deferred Extremities: No calf tenderness, Normal capillary refill, Normal inspection, Normal range of motion, Non-tender, No pedal edema Musculoskeletal : Apperance: Normal Neurologic: Alert, outpatient case manager II-XII nml as Tested, No Motor Deficits, Normal Affect, Normal Mood, No Sensory Deficits Cerebellar Function: NOT DONE Reflexes: NOT DONE Skin: Dry, Normal Color, Warm Peripheral Pulses: 3+ Radial (R), 3+ Radial (L) Lymphatic: No Adenopathy Was a procedure done? Was a procedure done?: No Differential Diagnosis Kidney stone (Female): Musculoskeletal pain, Urinary obstruction, Urolithiasis X-Ray, Labs, Meds, VS Vital Signs Date Time Temp Pulse Resp B/P (MAP) Pulse Ox O2 Delivery O2 Flow Rate FiO2 09/17/24 11:18 Room Air* 0 21 09/17/24 11:18 98.1 84 20 97/55 (69) 99 Lab Test 09/17/24 12:20 Range/Units White Blood Count 12.0 H 4.4-10.8 10^3/uL Red Blood Count 3.68 L 4.0-5.20 10^6/uL Hemoglobin 11.0 L 12.2-16.2 g/dL Hematocrit 33.9 L 36.0-46.0 % Mean Corpuscular Volume 91.9 80.0-100.0 fL Mean Corpuscular Hemoglobin 29.9 28.0-32.0 pg Mean Corpuscular Hemoglobin Concent 32.5 32.0-36.0 g/dL Red Cell Distribution Width 15.1 H 11.8-14.3 % Platelet Count 352 140-450 10^3/uL Mean Platelet Volume 6.9 6.9-10.8 fL Neutrophils (%) (Auto) 85.0 H 37.0-80.0 % Lymphocytes (%) (Auto) 7.8 L 10.0-50.0 % Monocytes (%) (Auto) 4.9 0.0-12.0 % Eosinophils (%) (Auto) 1.9 0.0-7.0 % Basophils (%) (Auto) 0.4 0.0-2.0 % Neutrophils # (Auto) 10.2 H 1.6-8.6 10 ^3/uL Lymphocytes # (Auto) 0.9 0.4-5.4 10 ^3/uL Monocytes # (Auto) 0.6 0-1.3 10 ^3/uL Eosinophils # (Auto) 0.2 0-0.8 10 ^3/uL Basophils # (Auto) 0 0-0.2 10 ^3/uL Nucleated Red Blood Cells 0.1 % Sodium Level 137 136-145 mmol/L Potassium Level 4.7 3.5-5.1 mmol/L Chloride Level 105 98-107 mmol/L Carbon Dioxide Level 25 20-31 mmol/L Anion Gap 7 5-15 Blood Urea Nitrogen 18 9-23 mg/dL Creatinine 1.30 H 0.550-1.02 mg/dL Glomerular Filtration Rate Calc 45 >90 mL/min BUN/Creatinine Ratio 13.8 10.0-20.0 Serum Glucose 138 H 74-106 mg/dL Calcium Level 9.4 8.7-10.4 mg/dL Troponin I High Sensitivity 5 </=34 ng/L Patient alert. Complaining of blood in the urine. Has a Mariano catheter in place. Vitals stable. Possible urinary tract infection. On examination there is suprapubic tenderness pain Possibly will need CT scan of the abdomen. Possibly will need colonoscopy. Urology consultation. Possibly will need cystoscopy. Change Mariano catheter. Explained to the patient. Continue cardiac monitoring. Chest XR: FINDINGS: Lines and Tubes: None Lungs: No focal consolidation. Pleura: No effusion. No pneumothorax. Cardiomediastinal contours: Unremarkable Bones: No acute osseous abnormality. IMPRESSION: No acute cardiopulmonary disease. Time of 1ST Reevaluation: 12:43 Reevaluation 1ST: Unchanged Patient Education/Counseling: Diagnosis, Treatment Family Education/Counseling: No Family Present Additional Information I reviewed the following notes from patient's past medical encounters: 09/01/24 for chest pain The following tests were ordered, and results were reviewed by me: UA, CBC, BMP I reviewed and agreed with the following test results read by other providers: Additional Information was gathered from interviewing the following independent historians: EMS I discussed treatment and results with medical personnel. Departure 1 Departure Time of Disposition: 12:30 Impression: Primary Impression: Uncontrolled diabetes mellitus Qualified Codes: E13.65 - Other specified diabetes mellitus with hyperglycemia Additional Impression: Hematuria Qualified Codes: R31.9 - Hematuria, unspecified Disposition: 09 ADMITTED INPATIENT Admit to: Med Surg Condition: Guarded Critical Care Note Critical Care Time?: No Stability Stability form required: No Heart Score Heart Score: Heart Score Response (Comments) Value History N/A 0 EKG N/A 0 Age N/A 0 Risk Factors N/A 0 Troponin N/A 0 Total 0 I personally scribed for KALI SIMS MD ([email or web address]) on 09/17/24 at 11:51. Electronically submitted by Denzel Mendoza ([email or web address]). I personally scribed for KALI SIMS MD ([email or web address]) on 09/17/24 at 13:10. Electronically submitted by Denzel Mendoza ([email or web address]). KALI SIMS MD Sep 17, 2024 11:51
[2024-09-17 12:28] LABS: Basophils # (auto) 0 10 ^3/uL (0-0.2); Basophils % (auto) 0.4 % (0.0-2.0); Eosinophils # (auto) 0.2 10 ^3/uL (0-0.8); Eosinophils % (auto) 1.9 % (0.0-7.0); Hematocrit 33.9 % (36.0-46.0); Lymphocytes # (auto) 0.9 10 ^3/uL (0.4-5.4); Lymphocytes % (auto) 7.8 % (10.0-50.0); Mean Corpuscular Hemoglobin 29.9 pg (28.0-32.0); Mean Corpuscular Hgb Conc. 32.5 g/dL (32.0-36.0); Mean Corpuscular Volume 91.9 fL (80.0-100.0); Monocytes # (auto) 0.6 10 ^3/uL (0-1.3); Monocytes % (auto) 4.9 % (0.0-12.0); Neutrophils # (auto) 10.2 10 ^3/uL (1.6-8.6); Nucleated Red Blood Cells % 0.1 %; Platelet Count (auto) 352 10^3/uL (140-450); Red Blood Cells 3.68 10^6/uL (4.0-5.20); Red Cell Distribution Width 15.1 % (11.8-14.3)
[2024-09-17 12:55] LABS: Chloride 105 mmol/L (98-107); Potassium 4.7 mmol/L (3.5-5.1); Sodium 137 mmol/L (136-145)
[2024-09-17 12:56] LABS: Anion Gap 7 (5-15); Calcium 9.4 mg/dL (8.7-10.4); Carbon Dioxide 25 mmol/L (20-31)
--- NOTE | 2024-09-17 12:59 | DVH ---
EXAM: XY CHEST PORTABLE Indication: sob Technique: Single frontal view of the chest was obtained Comparison: XY CHEST PORTABLE on DOS: 09/01/24, XY CHEST PORTABLE on DOS: 09/22/23, XY CHEST XRAY 1 VIEW on DOS: 08/07/23, XY CHEST PORTABLE on DOS: 08/04/23 FINDINGS: Lines and Tubes: None Lungs: No focal consolidation. Pleura: No effusion. No pneumothorax. Cardiomediastinal contours: Unremarkable Bones: No acute osseous abnormality. IMPRESSION: No acute cardiopulmonary disease.
[2024-09-17 13:01] LABS: BUN/Creatinine Ratio 13.8 (10.0-20.0); Blood Urea Nitrogen 18 mg/dL (9-23)
[2024-09-17 13:02] LABS: Glucose 138 mg/dL (74-106)
[2024-09-17] MEDS ORDERED: ACETAMINOPHEN 325 MG TAB PO PRN (19:00)
[2024-09-17] MEDS ORDERED: ONDANSETRON HCL 4 MG/2 ML VIAL IV PRN (19:00)
[2024-09-17] MEDS ORDERED: DEXTROSE (50%) 50ML SYRG IV PRN (19:00)
[2024-09-17 19:52] VITALS: BP 88/56; PULSE 88; RESP 18; TEMP 98.3; O2SAT 95
[2024-09-17 21:38] LABS: Urine Bacteria None Seen /hpf (None Seen)
[2024-09-17] MEDS: cefTRIAXone 1GM/50ML D5W 50 ML IV ONE (21:53)
[2024-09-17] MEDS ORDERED: SACUBITRIL-VALSARTAN 24mg/26mg TAB PO SCH (22:00)
[2024-09-17] MEDS ORDERED: ATORVASTATIN 20 MG TAB PO SCH (22:00)
[2024-09-17] MEDS ORDERED: CARVEDILOL 12.5 MG TAB PO SCH (22:00)
[2024-09-17] MEDS: InsuLIN REG 1unit/0.01ml Soln (100units/ml) SC SCH (22:00)
[2024-09-17] MEDS: ACCU-CHEK COMFORT CURVE STRIP VI SCH (22:00)
[2024-09-17 22:07] LABS: Urine Blood 3+ /uL (Negative); Urine Budding Yeast FEW /hpf (None Seen); Urine Clarity Ex.Turbid (Clear); Urine Color Red (Yellow); Urine Mucus FEW (None Seen); Urine Protein, UAD 1+ (Negative); Urine Specific Gravity 1.029 (1.001-1.035); Urine Squamous Epithelial Cell None Seen /hpf (<5); Urine Urobilinogen Normal (Negative); Urine WBC 225 /HPF (0-5); Urine pH 5.5 (5.0-9.0)
--- NOTE | 2024-09-17 23:30 | DVHHP2 ---
History of Present Illness Reason for Visit: Hematuria History of Present Illness 69-year-old female presents for evaluation of hematuria. Patient reports having a chronic Stovall catheter placed by [facility]. Today she noticed her urine becoming blood-tinged. Reports occasional chills. Denies nausea or vomiting. No abdominal pain. No other acute symptoms. Past Medical History CHF, hypertension diabetes mellitus Past Surgical History Denies Family History Noncontributory Smoke: No ALCOHOL: none Drugs: None Lives: with Family Review of Systems Review of Systems Review of systems are currently negative otherwise addressed in HPI. Allergies: Coded Allergies: Acetaminophen (Verified Allergy, Severe, Hives, 08/09/23) Medications Current Medications Medications Dose Ordered Sig/Natalie Route Start Time Stop Time Status Last Admin Dose Admin Lisinopril 10 mg DAILY PO 09/18/24 10:00 Cancel Exam Vital Signs Vital Signs Date Time Temp Pulse Resp B/P (MAP) Pulse Ox O2 Delivery O2 Flow Rate FiO2 09/17/24 19:52 98.3 88 18 88/56 (67) 95 98.3 09/17/24 11:18 Room Air* 0 21 Exam Gen: 69-year-old female in mild distress. Skin: Warm, dry, normal color and texture, no rash. HEENT: Normocephalic atraumatic, mucous membranes moist and pink. Neck: Cervical and supraclavicular nodes normal without enlargement, trachea is midline, thyroid gland is normal without masses. Pulmonary: Clear to auscultation and percussion bilaterally. Cardiac: Regular rate and rhythm. No murmur Abdomen: Soft, nontender, nondistended, bowel sounds present all 4 quadrants, no guarding, no rigidity, no organomegaly. Extremities: No cyanosis, clubbing, no edema Neuro: Cranial nerves II through XII grossly intact, normal affect and speech, no focal motor deficits. Labs/Xrays ORDERING PHYSICIAN: KALI SIMS MD PROCEDURE(s): CXRP - CHEST PORTABLE REASON: sob ORDER NUMBER(s): [id number], ACCESSION NUMBER(s): [id number] EXAM: XY CHEST PORTABLE Indication: sob Technique: Single frontal view of the chest was obtained Comparison: XY CHEST PORTABLE on DOS: 09/01/24, XY CHEST PORTABLE on DOS: 09/22/23, XY CHEST XRAY 1 VIEW on DOS: 08/07/23, XY CHEST PORTABLE on DOS: 08/04/23 FINDINGS: Lines and Tubes: None Lungs: No focal consolidation. Pleura: No effusion. No pneumothorax. Cardiomediastinal contours: Unremarkable Bones: No acute osseous abnormality. IMPRESSION: No acute cardiopulmonary disease. Labs Test 09/17/24 12:20 09/17/24 01:29 Range/Units White Blood Count 12.0 H 4.4-10.8 10^3/uL Red Blood Count 3.68 L 4.0-5.20 10^6/uL Hemoglobin 11.0 L 12.2-16.2 g/dL Hematocrit 33.9 L 36.0-46.0 % Mean Corpuscular Volume 91.9 80.0-100.0 fL Mean Corpuscular Hemoglobin 29.9 28.0-32.0 pg Mean Corpuscular Hemoglobin Concent 32.5 32.0-36.0 g/dL Red Cell Distribution Width 15.1 H 11.8-14.3 % Platelet Count 352 140-450 10^3/uL Mean Platelet Volume 6.9 6.9-10.8 fL Neutrophils (%) (Auto) 85.0 H 37.0-80.0 % Lymphocytes (%) (Auto) 7.8 L 10.0-50.0 % Monocytes (%) (Auto) 4.9 0.0-12.0 % Eosinophils (%) (Auto) 1.9 0.0-7.0 % Basophils (%) (Auto) 0.4 0.0-2.0 % Neutrophils # (Auto) 10.2 H 1.6-8.6 10 ^3/uL Lymphocytes # (Auto) 0.9 0.4-5.4 10 ^3/uL Monocytes # (Auto) 0.6 0-1.3 10 ^3/uL Eosinophils # (Auto) 0.2 0-0.8 10 ^3/uL Basophils # (Auto) 0 0-0.2 10 ^3/uL Nucleated Red Blood Cells 0.1 % Sodium Level 137 136-145 mmol/L Potassium Level 4.7 3.5-5.1 mmol/L Chloride Level 105 98-107 mmol/L Carbon Dioxide Level 25 20-31 mmol/L Anion Gap 7 5-15 Blood Urea Nitrogen 18 9-23 mg/dL Creatinine 1.30 H 0.550-1.02 mg/dL Glomerular Filtration Rate Calc 45 >90 mL/min BUN/Creatinine Ratio 13.8 10.0-20.0 Serum Glucose 138 H 74-106 mg/dL Calcium Level 9.4 8.7-10.4 mg/dL Troponin I High Sensitivity 5 </=34 ng/L Urine Color Red H Yellow Urine Clarity Ex.turbid Clear Urine pH 5.5 5.0-9.0 Urine Specific [place] 1.029 1.001-1.035 Urine Protein 1+ H Negative Urine Ketones Negative Negative Urine Blood 3+ H Negative /uL Urine Nitrite Negative Negative Urine Bilirubin Negative Negative Urine Urobilinogen Normal Negative mg/dL Urine Leukocyte Esterase 2+ Negative /uL Urine RBC 6100 0 - 4 /hpf Urine Microscopic WBC 225 H 0-5 /HPF Urine Squamous Epithelial Cells None seen <5 /hpf Urine Bacteria None seen None Seen /hpf Urine Mucus Few None Seen Urine Yeast (Budding) Few None Seen /hpf Urine Glucose 3+ H Normal mg/dL Assessment/Plan Assessment/Plan Assessment Hematuria Possible UTI Acute kidney injury Diabetes mellitus Mild leukocytosis Plan Admit the patient to [facility] to the hospitalist Urology consultation Rocephin Resume home medications Continue treatment per orders. Plan discussed with: Patient My Orders Orders - FARIDA CEJA Procedure Category Date Status Time Communication Order ORDERS 09/17/24 Transmitted 18:53 Urine Bacterial KAY 09/17/24 In Process Culture 18:53 * Urology Consult CONS 09/17/24 Transmitted 18:53 Admit ADMIT 09/17/24 Transmitted 18:53 Date of Service: Sep 17, 2024 Billing Provider: FARIDA CEJA Common Visit Codes: [id number] INP/OBS CARE (MOD) FARIDA CEJA Sep 17, 2024 23:30
[2024-09-18] MEDS ORDERED: cefTRIAXone 1GM/50ML D5W 50 ML IV SCH (09:00)
[2024-09-18] MEDS ORDERED: LISINOPRIL 5 MG TAB PO SCH (10:00)
[2024-09-18] MEDS ORDERED: FUROSEMIDE 40 MG TAB PO SCH (10:00)
== END 2024-09-17 23:16 | disposition left against medical advice (07) | DRG 690 ==
LOC: EDBD 11:14 → ER 11:24 → OVERFLOW 18:53
PROVIDERS: ADMIT Nurse Practitioner; ATTEND Nurse Practitioner
DX: N39.0 Urinary tract infection, site not specified (principal); N17.9 Acute kidney failure, unspecified; Z53.29 Procedure and treatment not carried out because of patient's decision for other reasons; I11.0 Hypertensive heart disease with heart failure; E11.9 Type 2 diabetes mellitus without complications; I50.9 Heart failure, unspecified; Z88.6 Allergy status to analgesic agent; Z88.8 Allergy status to other drugs, medicaments and biological substances
CPT/HCPCS: 36415; 71045; 80048; 81001; 82962; 84484; 85025; 86850; 86900; 86901; 87086; 96365; G0378

== ENCOUNTER 2024-09-18 13:00 | Inpatient (IN) | payer MEDICARE, MEDICAID ==
[~2024-09-18] VITALS: Ht 154.9 cm; Wt 65.1 kg
--- NOTE | 2024-09-18 13:53 | ED.PDOC ---
General HPI Comments 69 year old female presents to the ED with chief complaint of hematuria. Patient reports that she had a Stovall catheter placed a week ago at [facility] due to an inability to void. Patient relays that she has now been experiencing pain to her vaginal region along with associated hematuria that started to appear in her Stovall bag since yesterday. Patient mentions that she was seen here at this facility yesterday, but left AMA due to not wanting to wait for a bed. Patient denies any N/V/D, abdominal pain, dizziness, fever, chills, chest pain, or SOB. Chief Complaint: Urinary Time Seen by MD: 13:49 Primary Care Provider: UNKNOWN Reviewed notes: Medications, Allergies Allergies: Coded Allergies: Acetaminophen (Verified Allergy, Severe, Hives, 08/09/23) Home Meds Reported Medications Multiple Vitamins W/ Minerals (Centrum Multivitamin Flav) 1 Pow Pow, 1 POW PO DAILY, POW 04/23/24 Aspirin (Aspir-81) 81 Mg Tab, 81 MG PO DAILY, TAB 04/23/24 Atorvastatin Calcium (Lipitor) 40 Mg Tab, 40 MG PO DAILY, TAB 04/23/24 Lisinopril (Lisinopril) 20 Mg Tab, 10 MG PO DAILY, TAB 04/23/24 Methylprednisolone (Methylprednisolone) 4 Mg Tab, 4 MG PO DAILY, TAB 04/23/24 Metformin Hydrochloride (Metformin Hcl) 500 Mg Tab, 1 TAB PO BID for DIABETES 12/20/23 Furosemide (Lasix) 40 Mg Tab, 1 TAB PO DAILY for CHF 12/20/23 Empagliflozin (Jardiance) 10 Mg Tab, 1 TAB PO DAILY for DIABETES 12/20/23 Insulin Regular (Human) (Humulin R) 100 Unit/Ml Inj, UNIT SC ACHS for PER SLIDING SCALE 12/18/23 Carvedilol (COREG) 12.5 Mg Tab, 1 TAB PO BID for HYPERTENSION 12/18/23 Information Source: Patient Mode of Arrival: Wheelchair Severity: Mild Inability to void: Moderate Timing: Days Duration: Since onset Has not urinated for: Minutes Prehospital treatment: None Onset: Spontaneous Symptoms: Dysuria, Inability to void Location: Suprapubic associated signs and symptoms: Dysuria, Inability to Void Past Medical History PAST MEDICAL HISTORY: DM, HTN Surgical History: Denies all surgeries AUTOMATIC SPREADER OPERATOR History: No Pertinent AUTOMATIC SPREADER OPERATOR History Family History Family History: Reviewed,noncontributory to illness, No family hx of Cancer, No family hx of DM, No family hx of Heart kane, No family hx of HTN, No family hx ofKidney kane, No family hx of Liver kane, No family hx of Lung kane, No family hx of Stroke Social History Smoker: Non-Smoker Alcohol: Denies ETOH Use Drugs: Denies Drug Use Lives In: Home Constitutional: denies: chills, diaphoresis, fatigue, fever, malaise, sweats, weakness, others EENTM: denies: blurred vision, double vision, ear bleeding, ear discharge, ear drainage, ear pain, ear ringing, eye pain, eye redness, hearing loss, mouth pain, mouth swelling, nasal discharge, nose bleeding, nose congestion, nose pain, photophobia, tearing, throat pain, throat swelling, voice changes, others Respiratory: denies: cough, hemoptysis, orthopnea, SOB at rest, shortness of breath, SOB with excertion, stridor, wheezing, others Cardiovascular: denies: chest pain, dizzy spells, diaphoresis, Dyspnea on exertion, edema, irregular heart beat, left arm pain, lightheadedness, palpitations, PND, syncope, others Gastrointestinal: denies: abdomen distended, abdominal pain, blood streaked bowels, constipated, diarrhea, dysphagia, difficulty swallowing, hematemesis, melena, nausea, poor appetite, poor fluid intake, rectal bleeding, rectal pain, vomiting, others Genitourinary: reports: dysuria, hematuria; denies: abnormal vagina bleeding, burning, dyspareunia, flank pain, frequency, incontinence, pain, , vagina discharge, urgency, others Neurological: denies: dizziness, fainting, headache, left sided numbness, left sided weakness, numbness, paresthesia, pre-existing deficit, right sided numbness, right sided weakness, seizure, speech problems, tingling, tremors, weakness, others Musculoskeletal: denies: back pain, gout, joint pain, joint swelling, muscle pain, muscle stiffness, neck pain, others Integumetry: denies: bruises, change in color, change in hair/nails, dryness, laceration, lesions, lumps, rash, wounds, others Allergic/Immunocompromised: denies: Difficulty Healing, Frequent Infections, Hives, Itching, others Hematologic/Lymphatic: denies: anemia, blood clots, easy bleeding, easy bruising, swollen glands, others Endocrine: denies: excessive hunger, excessive sweating, excessive thirst, excessive urination, flushing, intolerance to cold, intolerance to heat, unexplained weight gain, unexplained weight loss, others Psychiatric: denies: anxiety, bipolar disorder, depression, hopeless, panic disorder, schizophrenia, sleepless, suicidal, others All Other Systems: Reviewed and Negative Physical Exam General Appearance: Moderate Distress, Normal HEENT: Normal ENT Inspection, Pharynx Normal, TMs Normal Neck: Full Range of Motion, Non-Tender, Normal, Normal Inspection Respiratory: Chest Non-Tender, Lungs Clear, No Accessory Muscle Use, No Respiratory Distress, Normal Breath Sounds Cardiovascular: No Edema, No JVD, No Murmur, No Gallop, Normal Peripheral Pulses, Regular Rate/Rhythm Breast Exam: Deferred Gastrointestinal: No Organomegaly, Non Tender, No Pulsatile Mass, Normal Bowel Sounds, Soft Genitalia: Deferred Pelvic: Deferred Rectal: Deferred Extremities: No calf tenderness, Normal capillary refill, Normal inspection, Normal range of motion, Non-tender, No pedal edema Musculoskeletal : Apperance: Normal Neurologic: Alert, second officer II-XII nml as Tested, No Motor Deficits, Normal Affect, Normal Mood, No Sensory Deficits Cerebellar Function: NOT DONE Reflexes: NOT DONE Skin: Dry, Normal Color, Warm Peripheral Pulses: 3+ Radial (R), 3+ Radial (L) Lymphatic: No Adenopathy Was a procedure done? Was a procedure done?: No Differential Diagnosis Kidney stone (Female): Musculoskeletal pain, Urinary obstruction, Urolithiasis X-Ray, Labs, Meds, VS Vital Signs Date Time Temp Pulse Resp B/P (MAP) Pulse Ox O2 Delivery O2 Flow Rate FiO2 09/18/24 13:23 98.6 90 17 102/45 (64) 96 Patient alert. Complaining of blood her urine. Was seen here for same symptoms yesterday but left without staying. Vitals stable. Continues to have hematuria. Urology consultation. Possibly will need intravenous antibiotics. Reviewed her previous visit. Explained to the patient. Continue cardiac monitoring. Time of 1ST Reevaluation: 14:19 Reevaluation 1ST: Unchanged Patient Education/Counseling: Diagnosis, Treatment, Prognosis Family Education/Counseling: Diagnosis, Treatment, Prognosis Additional Information I reviewed the following notes from patient's past medical encounters: 09/17/2024 ER chart The following tests were ordered, and results were reviewed by me: CBC, BMP, UA, Urine Culture I reviewed and agreed with the following test results read by other providers: Additional Information was gathered from interviewing the following independent historians: EMS notes from 09/17/2024 I discussed treatment and results with medical personnel and: Departure 1 Departure Time of Disposition: 14:03 Impression: Primary Impression: Hematuria Qualified Codes: R31.9 - Hematuria, unspecified Additional Impression: Uncontrolled diabetes mellitus Qualified Codes: E13.65 - Other specified diabetes mellitus with hyperglycemia Disposition: ADMITTED INPATIENT Admit to: Med Surg Condition: Guarded Critical Care Note Critical Care Time?: No Stability Stability form required: No Heart Score Heart Score: Heart Score Response (Comments) Value History N/A 0 EKG N/A 0 Age N/A 0 Risk Factors N/A 0 Troponin N/A 0 Total 0 I personally scribed for KALI SIMS MD ([email or web address]) on 09/18/24 at 13:53. Electronically submitted by Duke Terrazas ([email or web address]). I personally scribed for KALI SIMS MD ([email or web address]) on 09/18/24 at 13:53. Electronically submitted by Duke Terrazas ([email or web address]). KALI SIMS MD Sep 18, 2024 13:53
[2024-09-18 14:17] LABS: Basophils # (auto) 0.1 10 ^3/uL (0-0.2); Basophils % (auto) 0.7 % (0.0-2.0); Eosinophils # (auto) 0.1 10 ^3/uL (0-0.8); Eosinophils % (auto) 1.4 % (0.0-7.0); Hematocrit 30.8 % (36.0-46.0); Hemoglobin 10.5 g/dL (12.2-16.2); Lymphocytes # (auto) 0.9 10 ^3/uL (0.4-5.4); Mean Corpuscular Hemoglobin 31.1 pg (28.0-32.0); Mean Corpuscular Hgb Conc. 34.1 g/dL (32.0-36.0); Mean Corpuscular Volume 91.2 fL (80.0-100.0); Monocytes # (auto) 0.5 10 ^3/uL (0-1.3); Monocytes % (auto) 4.6 % (0.0-12.0); Neutrophils # (auto) 8.6 10 ^3/uL (1.6-8.6); Neutrophils % (auto) 84.3 % (37.0-80.0); Nucleated Red Blood Cells % 0.1 %; Platelet Count (auto) 327 10^3/uL (140-450); Red Blood Cells 3.38 10^6/uL (4.0-5.20); Red Cell Distribution Width 14.7 % (11.8-14.3); White Blood Cell 10.2 10^3/uL (4.4-10.8)
[2024-09-18 14:31] LABS: Chloride 105 mmol/L (98-107); Potassium 4.9 mmol/L (3.5-5.1); Sodium 137 mmol/L (136-145)
[2024-09-18 14:32] LABS: Anion Gap 9 (5-15); Carbon Dioxide 23 mmol/L (20-31)
[2024-09-18 14:33] LABS: Calcium 8.9 mg/dL (8.7-10.4)
[2024-09-18 14:38] LABS: BUN/Creatinine Ratio 15.6 (10.0-20.0); Blood Urea Nitrogen 20 mg/dL (9-23)
[2024-09-18 14:46] LABS: Glucose 143 mg/dL (74-106)
[2024-09-18 15:47] VITALS: PULSE 73; RESP 12; O2SAT 97
[2024-09-18 18:03] LABS: Urine Bacteria None Seen /hpf (None Seen)
[2024-09-18 18:39] LABS: Urine Blood 3+ /uL (Negative); Urine Budding Yeast MANY /hpf (None Seen); Urine Clarity Turbid (Clear); Urine Color Light-Yellow (Yellow); Urine Mucus FEW (None Seen); Urine Protein, UAD 1+ (Negative); Urine Specific Gravity 1.022 (1.001-1.035); Urine Squamous Epithelial Cell FEW /hpf (<5); Urine Urobilinogen Normal (Negative); Urine WBC 77 /HPF (0-5); Urine pH 5.5 (5.0-9.0)
[2024-09-18 19:30] VITALS: PULSE 90; RESP 20; O2SAT 97
--- NOTE | 2024-09-18 21:52 | DVH ---
INDICATION: RULE OUT HYDRONEPHROSIS TECHNIQUE: Multiple real-time sonographic images of the kidneys and bladder were obtained. COMPARISON: US KIDNEY on DOS: 09/21/[address] abdomen and pelvis 09/23/2023 FINDINGS: The right kidney measures 9.3 cm in length, which is normal in size. There is normal echogenicity of the right kidney. Mild hydronephrosis. The left kidney measures 10.6 cm in length, which is normal in size. There is normal echogenicity of the left kidney. No hydronephrosis. Urinary bladder is decompressed with Stovall catheter in place. IMPRESSION: Mild right hydronephrosis. Urinary bladder is decompressed with Stovall catheter in place.
[2024-09-18 22:15] LABS: Erythrocyte Sedimentation Rate 78 mm/hr (0-20)
[2024-09-18] MEDS: cefTRIAXone 1GM/50ML D5W 50 ML IV SCH (22:18)
[2024-09-18] MEDS: traMADol HCL 50 MG TAB PO SCH (22:18)
[2024-09-18] MEDS: SODIUM CHLORIDE 0.9% 1,000 ML IV ONE ×2 (22:18→22:37)
[2024-09-19] VITALS (7 sets, daily range): BP systolic 113–132; BP diastolic 45–64; PULSE 70–84; RESP 15–18; TEMP 97.3–98.3; O2SAT 94–99
[2024-09-19] MEDS ORDERED: DEXTROSE (50%) 50ML SYRG IV PRN (01:45)
[2024-09-19] MEDS: MORPHINE SULFATE INJ 2 MG/ml SYRG IV PRN ×2 (01:52→20:26)
--- NOTE | 2024-09-19 03:39 | DVHHPRES ---
History of Present Illness Resident Creating Document: WHIT GUTIERREZ RESIDENT Reason for Visit: UTI History of Present Illness The patient is a 69-year-old female with a history of diabetes, HTN, HFrEF and hyperlipidemia who presents complaining of severe vaginal pain and persistent hematuria. She reports that a Mariano catheter was placed approximately one week ago at another hospital due to difficulty voiding, and she believes it was placed traumatically. The patient was evaluated here yesterday for similar complaints but left against medical advice. Today, she notes improvement in her pain and that her Mariano drainage appears clearer compared to yesterday; however, she continues to have intermittent hematuria and suprapubic discomfort. She denies nausea, vomiting, diarrhea, fever, chills, or flank pain. She describes her pain as moderate to severe at times. Home meds: Aspirin, atorvastatin carvedilol empagliflozin furosemide insulin lisinopril metformin ECHO Jul 2023: Severely dilated left ventricle. Severely reduced left ventricular systolic function with mid ejection fraction of 30%. There is a global left ventricular wall hypokinesia. There is a grade 1 diastolic dysfunction. Severely dilated right ventricle. Severely reduced right ventricular systolic function. Mildly increased right ventricular systolic pressure at 30 mmHg. Moderately dilated right and left atria. The aortic valve appears normal in structure and function. The mitral valve has moderately severe mitral regurgitation. There is moderate tricuspid valve regurgitation. The pulmonary valve is grossly normal. No pericardial effusion. Review of Systems Constitutional: No: Fever, Chills, Sweats, Weakness, Malaise, Other Eyes: No: Pain, Vision change, Conjunctivae inflammation, Eyelid inflammation, Other, Redness ENT: No: Ear pain, Ear discharge, Nose pain, Nose discharge, Nose congestion, M outh pain, Mouth swelling, Throat pain, Throat swelling, Other Respiratory: No: Cough, Dry, Shortness of breath, SOB with excertion, Wheezing, Hemoptysis, Pleuritic Pain, Sputum, Wheezing, Other Cardiovascular: No: Chest Pain, Palpitations, Orthopnea, Paroxysmal Noc. Dyspnea, Edema, Lt Headedness, Other Gastrointestinal: No: Nausea, Vomiting, Abdominal Pain, Diarrhea, Constipation, Melena, Hematochezia, Other Genitourinary: No Dysuria, No Frequency, No Incontinence, No Hematuria, No Retention, No Other Musculoskeletal: No: other, neck pain, shoulder pain, arm pain, back pain, hand pain, leg pain, foot pain Skin: No: Rash, Lesions, Jaundice, Bruising, Other Neurological: No: Weakness, Numbness, Incoordination, Change in speech, Confu yanick, Seizures, Other Allergies: Coded Allergies: Acetaminophen (Verified Allergy, Severe, Hives, 08/09/23) Medications Current Medications Medications Dose Ordered Sig/Natalie Route Start Time Stop Time Status Last Admin Dose Admin Tramadol HCl 50 mg Q8HR PO 09/18/24 22:00 09/18/24 22:18 50 MG Ceftriaxone Sodium 50 ml @ 100 mls/hr DAILY IV 09/18/24 21:15 09/18/24 22:18 100 MLS/HR Morphine Sulfate 2 mg Q6HPRN PRN IV 09/19/24 01:45 09/19/24 01:52 2 MG Diagnostic Test (Pha) 1 strip IQ4HR 09/19/24 04:00 Insulin Human Regular IQ4HR SC 09/19/24 04:00 Dextrose 50 ml UD PRN IV 09/19/24 01:45 Exam Vital Signs Vital Signs Date Time Temp Pulse Resp B/P (MAP) Pulse Ox O2 Delivery O2 Flow Rate FiO2 09/19/24 02:22 79 18 110/62 09/19/24 01:00 97.9 99 97.9 09/19/24 00:58 Room Air* 0 21 General Appearance: Alert, Oriented X3, mild distress HEENT: Atraumatic, PERRLA, Mucous membr. moist/pink Respiratory: Clear to auscultation Cardiovascular: Regular rate, Normal S1 Abdominal: Other (suprapubic and right cva tenderness, vaginal prolapse, mariano on place with clear urine ) Extremities: No clubbing, No cyanosis, No edema Skin: No rashes Psych/Mental Status: Mental status NL, Mood NL Labs/Xrays Labs Test 09/19/24 01:24 09/18/24 17:53 09/18/24 14:08 Range/Units POC Glucose 132 H 70-106 mg/dl Urine Color Light-yellow Yellow Urine Clarity Turbid H Clear Urine pH 5.5 5.0-9.0 Urine Specific [place] 1.022 1.001-1.035 Urine Protein 1+ H Negative Urine Ketones Negative Negative Urine Blood 3+ H Negative /uL Urine Nitrite Negative Negative Urine Bilirubin Negative Negative Urine Urobilinogen Normal Negative mg/dL Urine Leukocyte Esterase 1+ Negative /uL Urine RBC 216 0 - 4 /hpf Urine Microscopic WBC 77 H 0-5 /HPF Urine Squamous Epithelial Cells Few <5 /hpf Urine Bacteria None seen None Seen /hpf Urine Mucus Few None Seen Urine Yeast (Budding) Many None Seen /hpf Urine Glucose 4+ H Normal mg/dL White Blood Count 10.2 4.4-10.8 10^3/uL Red Blood Count 3.38 L 4.0-5.20 10^6/uL Hemoglobin 10.5 L 12.2-16.2 g/dL Hematocrit 30.8 L 36.0-46.0 % Mean Corpuscular Volume 91.2 80.0-100.0 fL Mean Corpuscular Hemoglobin 31.1 28.0-32.0 pg Mean Corpuscular Hemoglobin Concent 34.1 32.0-36.0 g/dL Red Cell Distribution Width 14.7 H 11.8-14.3 % Platelet Count 327 140-450 10^3/uL Mean Platelet Volume 7.0 6.9-10.8 fL Neutrophils (%) (Auto) 84.3 H 37.0-80.0 % Lymphocytes (%) (Auto) 9.0 L 10.0-50.0 % Monocytes (%) (Auto) 4.6 0.0-12.0 % Eosinophils (%) (Auto) 1.4 0.0-7.0 % Basophils (%) (Auto) 0.7 0.0-2.0 % Neutrophils # (Auto) 8.6 1.6-8.6 10 ^3/uL Lymphocytes # (Auto) 0.9 0.4-5.4 10 ^3/uL Monocytes # (Auto) 0.5 0-1.3 10 ^3/uL Eosinophils # (Auto) 0.1 0-0.8 10 ^3/uL Basophils # (Auto) 0.1 0-0.2 10 ^3/uL Nucleated Red Blood Cells 0.1 % Erythrocyte Sedimentation Rate 78 H 0-20 mm/hr Sodium Level 137 136-145 mmol/L Potassium Level 4.9 3.5-5.1 mmol/L Chloride Level 105 98-107 mmol/L Carbon Dioxide Level 23 20-31 mmol/L Anion Gap 9 5-15 Blood Urea Nitrogen 20 9-23 mg/dL Creatinine 1.28 H 0.550-1.02 mg/dL Glomerular Filtration Rate Calc 45 >90 mL/min BUN/Creatinine Ratio 15.6 10.0-20.0 Serum Glucose 143 H 74-106 mg/dL Calcium Level 8.9 8.7-10.4 mg/dL C-Reactive Protein High Sensitivity 2.31 H <1.0 mg/dL Assessment/Plan Assessment/Plan Sepsis due to complicated UTI: Pyelonephritis Hematuria Vaginal prolapse Diabetes type 2 History of hypertension Chronic systolic heart failure Hyperlipidemia Admit Med surg NS 1 bolus already given 60 cc/hour Ceftriaxone IV Insulin mild sliding scale Due to soft blood pressure: Lisinopril carvedilol and furosemide were hold Due to UTI Jardiance is hold Tramadol and morphine for pain Case discussed with Dr Duarte Time spent on care 23 min Full code Plan discussed with: Patient, Other My Orders Orders - WHIT GUTIERREZ RESIDENT Procedure Category Date Status Time Admit ADMIT 09/18/24 Transmitted 21:01 Sodium Chloride 0.9% PHA 09/18/24 In Process 21:15 Tramadol Hcl (Ultram) PHA 09/18/24 In Process 22:00 Ceftriaxone 1gm/50ml PHA 09/18/24 In Process D5w (Rocephin) 21:15 Kidney US 09/18/24 Resulted 21:01 Blood Culture KAY 09/18/24 In Process 21:01 Morphine Sulfate PHA 09/19/24 In Process Injection 01:45 Glucose Blood PHA 09/19/24 In Process (Accu-Chek Comfort 04:00 Insulin R (Human) PHA 09/19/24 In Process (Insulin R) 04:00 Dextrose 50% Syringe PHA 09/19/24 In Process 01:45 Complete Blood Count LAB 09/19/24 Logged 04:00 Comprehensive LAB 09/19/24 Logged Metabolic Panel 04:00 Drug Screen LAB 09/19/24 Logged 04:00 Hemoglobin A1c LAB 09/19/24 Logged 04:00 Lactic Acid W/ Reflex LAB 09/19/24 Logged Order 04:00 PTPTT LAB 09/19/24 Logged 04:00 Thyroid Stimulating LAB 09/19/24 Logged Hormone 04:00 Vitamin B12 LAB 09/19/24 Logged 04:00 Vitamin D, 25-Hydroxy LAB 09/19/24 Logged 04:00 Lipid Panel LAB 09/19/24 Logged 04:00 Magnesium LAB 09/19/24 Logged 04:00 Phosphorus LAB 09/19/24 Logged 04:00 Mrsa Screen KAY 09/19/24 Logged 02:51 Hepatitis B Surface LAB 09/19/24 Logged Antibody 04:00 Hepatitis C Antibody LAB 09/19/24 Logged 04:00 Date of Service: Sep 18, 2024 Billing Provider: IMANI DUARTE MD Common Visit Codes: [id number] INP/OBS CARE (HIGH) Secondary Visit Codes: [id number] CARE PLAN 30 MINUTES WHIT GUTIERREZ RESIDENT Sep 19, 2024 03:39 IMANI DUARTE MD Sep 19, 2024 13:06
[2024-09-19] MEDS: SODIUM CHLORIDE 0.9% 1,000 ML IV SCH (03:55)
[2024-09-19] MEDS: InsuLIN REG 1unit/0.01ml Soln (100units/ml) SC SCH ×2 (04:00→17:57)
[2024-09-19] MEDS: ACCU-CHEK COMFORT CURVE STRIP VI SCH ×2 (04:00→18:08)
[2024-09-19 04:30] LABS: Basophils # (auto) 0 10 ^3/uL (0-0.2); Basophils % (auto) 0.3 % (0.0-2.0); Eosinophils # (auto) 0.2 10 ^3/uL (0-0.8); Eosinophils % (auto) 1.9 % (0.0-7.0); Lymphocytes # (auto) 0.9 10 ^3/uL (0.4-5.4); Lymphocytes % (auto) 8.9 % (10.0-50.0); Mean Corpuscular Hemoglobin 30.4 pg (28.0-32.0); Mean Corpuscular Hgb Conc. 33.2 g/dL (32.0-36.0); Mean Corpuscular Volume 91.6 fL (80.0-100.0); Monocytes # (auto) 0.6 10 ^3/uL (0-1.3); Monocytes % (auto) 5.8 % (0.0-12.0); Neutrophils # (auto) 8.5 10 ^3/uL (1.6-8.6); Neutrophils % (auto) 83.1 % (37.0-80.0); Platelet Count (auto) 311 10^3/uL (140-450); Red Blood Cells 3.28 10^6/uL (4.0-5.20); White Blood Cell 10.2 10^3/uL (4.4-10.8)
[2024-09-19 04:44] LABS: INR 1.03 (0.9-1.15); Partial Thromboplastin Time 30.2 SEC (24.5-34.5); Prothrombin Time 10.9 sec (9.3-11.8)
[2024-09-19 04:47] LABS: Alanine Aminotransferase 19 U/L (7-40); Alkaline Phosphatase 93 U/L (46-116); Anion Gap 9 (5-15); Aspartate Aminotransferase 18 U/L (13-40); Blood Urea Nitrogen 17 mg/dL (9-23); Carbon Dioxide 20 mmol/L (20-31); LDL Cholesterol 46 mg/dL (< 100); Magnesium 1.8 mg/dL (1.6-2.6); Potassium 4.1 mmol/L (3.5-5.1); Sodium 138 mmol/L (136-145); Triglycerides 109 mg/dL (< 150)
[2024-09-19 04:48] LABS: Cholesterol 89 mg/dL (< 200); Phosphorus 3.1 mg/dL (2.4-5.1); Total Protein 5.8 g/dL (5.7-8.2)
[2024-09-19 04:49] LABS: Albumin 3.2 g/dL (3.2-4.8); Bilirubin, Total 0.2 mg/dL (0.2-1.0); Calcium 8.2 mg/dL (8.7-10.4); Chloride 109 mmol/L (98-107); Glucose 132 mg/dL (74-106); HDL Cholesterol 26 mg/dL (40-59)
--- NOTE | 2024-09-19 05:58 | DVH ---
EXAM: XR Chest, 1 View CLINICAL INDICATION: dyspnea TECHNIQUE: Frontal view of the chest. COMPARISON: XY CHEST PORTABLE on DOS: 09/17/24, XY CHEST PORTABLE on DOS: 09/01/24, XY CHEST PORTABLE on DOS: 09/22/23, XY CHEST XRAY 1 VIEW on DOS: 08/07/23, XY CHEST PORTABLE on DOS: 08/04/23 FINDINGS: LUNGS AND PLEURAL SPACES: Unremarkable. No consolidation. No pneumothorax. HEART: Unremarkable. No cardiomegaly. MEDIASTINUM: Unremarkable. Normal mediastinal contour. BONES/JOINTS: Unremarkable. No acute fracture. OTHER FINDINGS: . None. ... IMPRESSION: No acute cardiopulmonary process.
[2024-09-19 09:00] LABS: Hepatitis B Surface Antibody Negative (Negative)
[2024-09-19] MEDS ORDERED: SACU1TAB4 PO (09:59)
[2024-09-19 10:39] LABS: Hepatitis C Antibody Reactive (Negative)
--- NOTE | 2024-09-19 11:20 | DVHPNRES ---
Progress Note Date Seen: Sep 19, 2024 Resident Creating Document: ZION KIRKPATRICK RESIDENT Medical Necessity Reason Pt with a Central, PICC or Fol: No Subjective Review of Systems Mr. 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 He was recently hospitalized at [facility] for over a week where she received IV antibiotics/Stovall catheter for vaginal pain. She was discharge and she went to see her PCP, who noticed gross hematuria and Stovall catheter and send her to the ER. She left from the ER and came back 09/18. Reports sharp vaginal pain. Pain is burning in nature. She does not know why the Stovall was placed. She has OBGYN appointment next for uterine prolapse. Echocardiogram completed 07/2023 showed Severely dilated left ventricle. Severely reduced left ventricular systolic function with mid ejection fraction of 30%. There is a global left ventricular wall hypokinesia. There is a grade 1 diastolic dysfunction. Severely dilated right ventricle. Severely reduced right ventricular systolic function. Mildly increased right ventricular systolic pressure at 30 mmHg. The patient denies shortness of breath yellowish continuous nausea/vomiting chills/fever /diarrhea. Stovall draining dark orange urine. UA shows 3+ RBCs and blood. Renal ultrasound shows mild hydronephrosis. Urology consulted. Home meds: Aspirin, atorvastatin carvedilol empagliflozin furosemide insulin lisinopril metformin Patient is seen and examined at the bedside. Urology consulted. CT abdomen pending. Objective vital signs Vital Sign Date Time Temp Pulse Resp B/P (MAP) Pulse Ox O2 Delivery O2 Flow Rate FiO2 09/19/24 09:00 98.3 79 16 126/60 (82) 94 98.3 09/19/24 00:58 Room Air* 0 21 Total Intake and Output 09/18/24 09/18/24 09/19/24 15:00 23:00 07:00 Intake Total 50 ml 1100 ml Output Total 1000 ml Balance 50 ml 100 ml medications Current Medications Medications Dose Ordered Sig/Natalie Route Start Time Stop Time Status Last Admin Dose Admin Tramadol HCl 50 mg Q8HR PO 09/18/24 22:00 09/18/24 22:18 50 MG Ceftriaxone Sodium 50 ml @ 100 mls/hr DAILY IV 09/18/24 21:15 09/19/24 09:16 100 MLS/HR Morphine Sulfate 2 mg Q6HPRN PRN IV 09/19/24 01:45 09/19/24 01:52 2 MG Diagnostic Test (Pha) 1 strip IQ4HR 09/19/24 04:00 09/19/24 08:14 1 STRIP Insulin Human Regular IQ4HR SC 09/19/24 04:00 Dextrose 50 ml UD PRN IV 09/19/24 01:45 Examination patient lying in bed, in no acute distress General: Over weight, afebrile, palor, mucosae are moist Cardiovascular: Regular S1 and S2. No murmurs, gallops or rubs. No JVD elevation. No pedal edema Respiratory: Normal B/L air entry on room air. Clear lung sounds on auscultation Abdomen: Soft, epigastric and suprapubic tenderness, right costovertebral angle tenderness nondistended, normoactive bowel sounds, no rebound tenderness, no organomegaly, no masses. Stovall be seen with orange urine Genitourinary: Deferred MSK/skin: Mobilizes 4 limbs. Skin is dry and warm Neurological: No motor, no sensitive deficits, normal speech. Pupils are isocoric and reactive. Psych/Mental Status: A/Ox3 laboratory and microbiology Laboratory Tests 09/19/24 03:30 Test 09/19/24 03:30 Range/Units Serum Glucose 132 H 74-106 mg/dL Microbiology Date/Time Source Procedure Growth Status 09/18/24 17:53 Urine - Stovall Port Urine Culture - Preliminary Resulted Labs and/or images reviewed: Labs reviewed by me, Image(s) reviewed by me Problem List/Assessment/Plan Problem List/Assessment/Plan Sepsis due to complicated UTI: Pyelonephritis History of bilateral hydronephrosis and Emphysematous cystitis 2023 Gross Hematuria Mild hydronephrosis IV ceftriaxone started 09/18 Tramadol and IV morphine for pain control Urology consulted Stovall in place CT abdomen pending Shows mild hydronephrosis Chronic systolic heart failure Hyperlipidemia Ef 30% in 2023 Fluid restrictions and cardiac diet Uterine prolapse Outpatient workup advised, Patient has OBGYN appointment 09/26 Uncontrolled type 2 diabetes mellitus hemoglobin A1c 9.2 Glucose goal 140-180 mg/dL History of hypertension Holding antihypertensives at this moment Goals of care discussed with the patient for more than 22 minutes, full code status Plan discussed with patient in which all questions have been answered Case discussed with Dr. Brennan Plan discussed with: Patient My Orders My Orders Orders - ZION KIRKPATRICK Procedure Category Date Status Time Ct Ab Pel Wo Con-No CT 09/19/24 Logged Oral Or Iv 11:02 * Urology Consult CONS 09/19/24 Transmitted 11:05 Hepatitis B Surface LAB 09/19/24 Logged Antigen 11:05 Date of Service: Sep 19, 2024 Billing Provider: JOSE ALFREDO JARAMILLO MD Common Visit Codes: [id number] INP/OBS CARE(HIGH) ZION KIRKPATRICK Sep 19, 2024 11:19 JOSE ALFREDO JARAMILLO MD Sep 24, 2024 23:20
--- NOTE | 2024-09-19 11:59 | DVH ---
CLINICAL INFORMATION: 69 years old, Female; hematuria. Rule out nephrolithiasis. TECHNIQUE: Axial CT images of the abdomen and pelvis were obtained without IV contrast. Coronal and s agittal reformatted images were obtained, reviewed, and stored. Evaluation of the parenchymal organs is limited without IV contrast. Evaluation of the bowel and mesentery is limited without oral contras t. All CT scans at this medical facility are performed using dose modulation techniques as appropriat e to a performed exam including the following: Automated exposure control was utilized; adjustment of the MA and/or KV according to patient size; and use of iterative reconstruction technique. CTDIvol = 9.54 mGy DLP = 453.5 mGy-cm COMPARISON: CT CT AB PEL WO CON-NO ORAL OR IV on DOS: 09/23/23 FINDINGS: Lung bases: Small bilateral pleural effusions with overlying mild compressive atelectasis. Moderate hiatal hernia. Liver: Grossly unremarkable in its noncontrast enhanced appearance. No abnormal density or focal lesi on identified. Biliary: No calcified gallstones or biliary ductal dilatation. Spleen: Unremarkable. Pancreas: Grossly unremarkable in its noncontrast enhanced appearance. Adrenal glands: Unremarkable. No mass. Kidneys: Moderate bilateral hydronephrosis with no obstructing calculi visualized. Similar findings a re seen on the prior CT. Aorta/Vascular: Moderate atherosclerotic calcification. No abdominal aortic aneurysm. Retroperitoneum: No mass or lymphadenopathy. Bowel/mesentery: No small bowel obstruction. Appendix is not visualized. Moderate to large amount of stool throughout the colon. Pelvic organs: Grossly unremarkable. Bladder: There is partially visualized bladder prolapse. There is gas within the bladder. Abdominal wall: Mild diffuse body wall edema. Bones: Grade 1 anterolisthesis of L4 on L5. No acute fracture or suspicious intraosseous lesion. IMPRESSION: 1. Bladder prolapse. There is a small to moderate amount of gas within the bladder, which may be see n with recent mariano catheter placement or other intervention. Infectious etiology not excluded. Enzo elate with clinical findings. 2. Moderate bilateral hydronephrosis no obstructing calculus visualized. Similar findings are seen in the prior CT. 3. Moderate to large amount of stool throughout the colon. 4. Small bilateral pleural effusions. 5. Moderate hiatal hernia. 6. Additional findings as described above.
[2024-09-19] MEDS ORDERED: HYDROcodone-ACET 10/325MG TAB PO PRN (14:15)
[2024-09-19] MEDS: KETOROLAC TROMETH 30 MG/ML 1ML VIAL IV ONE (16:27)
[2024-09-19] MEDS: MUPIROCIN 2% OINT 15gm or 22gm FOR MRSA NARES EACHNOSTRI SCH (16:45)
[2024-09-19] MEDS ORDERED: VANCOMYCIN PER PHARMACY 0 MG IV SCH (18:00)
[2024-09-19] MEDS: PANTOPRAZOLE 40 MG/10 ML VIAL INJ IV ONE (20:42)
[2024-09-19] MEDS: IBUPROFEN 600 MG TAB PO SCH (23:01)
[2024-09-20 01:00] VITALS: BP 117/63; PULSE 78; RESP 18; TEMP 97.2; O2SAT 97
[2024-09-20 05:00] VITALS: BP 125/64; PULSE 80; RESP 18; TEMP 97.8; O2SAT 96
[2024-09-20 06:59] LABS: Basophils # (auto) 0 10 ^3/uL (0-0.2); Basophils % (auto) 0.4 % (0.0-2.0); Eosinophils # (auto) 0.3 10 ^3/uL (0-0.8); Eosinophils % (auto) 3.2 % (0.0-7.0); Hematocrit 31.5 % (36.0-46.0); Hemoglobin 10.6 g/dL (12.2-16.2); Lymphocytes # (auto) 1.1 10 ^3/uL (0.4-5.4); Lymphocytes % (auto) 13.4 % (10.0-50.0); Mean Corpuscular Hemoglobin 30.7 pg (28.0-32.0); Mean Corpuscular Hgb Conc. 33.5 g/dL (32.0-36.0); Mean Corpuscular Volume 91.5 fL (80.0-100.0); Monocytes # (auto) 0.6 10 ^3/uL (0-1.3); Neutrophils # (auto) 6.1 10 ^3/uL (1.6-8.6); Platelet Count (auto) 270 10^3/uL (140-450); Red Blood Cells 3.44 10^6/uL (4.0-5.20); Red Cell Distribution Width 14.9 % (11.8-14.3)
[2024-09-20 07:23] LABS: Alanine Aminotransferase 15 U/L (7-40); Albumin 3.4 g/dL (3.2-4.8); Alkaline Phosphatase 94 U/L (46-116); Anion Gap 11 (5-15); Aspartate Aminotransferase 16 U/L (13-40); Blood Urea Nitrogen 14 mg/dL (9-23); Calcium 8.7 mg/dL (8.7-10.4); Potassium 4.2 mmol/L (3.5-5.1); Sodium 138 mmol/L (136-145); Total Protein 6.2 g/dL (5.7-8.2)
[2024-09-20 07:25] LABS: Bilirubin, Total 0.2 mg/dL (0.2-1.0); Carbon Dioxide 19 mmol/L (20-31); Chloride 108 mmol/L (98-107); Glucose 117 mg/dL (74-106)
[2024-09-20 09:00] VITALS: BP 150/77; PULSE 70; RESP 18; TEMP 97.5; O2SAT 93
[2024-09-20] MEDS: PANTOPRAZOLE 40 MG/10 ML VIAL INJ IV SCH (10:44)
[2024-09-20] MEDS: LIDOCAINE 2% TOPICAL JELLY 5 ML URJT TOP ONE (10:47)
--- NOTE | 2024-09-20 11:32 | ECG ---
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
[2024-09-20 13:00] VITALS: BP 157/66; PULSE 64; RESP 18; TEMP 97.7; O2SAT 99
[2024-09-20] MEDS: VANCOMYCIN 750mg/150ml 150 ML IV SCH (13:49)
--- NOTE | 2024-09-20 15:26 | DVHPNRES ---
Progress Note Date Seen: Sep 20, 2024 Resident Creating Document: ZION KIRKPATRICK RESIDENT Medical Necessity Reason Pt with a Central, PICC or Fol: No Subjective Review of Systems Mr. 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 He was recently hospitalized at [facility] for over a week where she received IV antibiotics/Stovall catheter for vaginal pain. She was discharge and she went to see her PCP, who noticed gross hematuria and Stovall catheter and send her to the ER. She left from the ER and came back 09/18. Reports sharp vaginal pain. Pain is burning in nature. She does not know why the Stovall was placed. She has OBGYN appointment next for uterine prolapse. Echocardiogram completed 07/2023 showed Severely dilated left ventricle. Severely reduced left ventricular systolic function with mid ejection fraction of 30%. There is a global left ventricular wall hypokinesia. There is a grade 1 diastolic dysfunction. Severely dilated right ventricle. Severely reduced right ventricular systolic function. Mildly increased right ventricular systolic pressure at 30 mmHg. The patient denies shortness of breath yellowish continuous nausea/vomiting chills/fever /diarrhea. Stovall draining dark orange urine. UA shows 3+ RBCs and blood. Renal ultrasound shows mild hydronephrosis. Urology consulted. Home meds: Aspirin, atorvastatin carvedilol empagliflozin furosemide insulin lisinopril metformin 09/19 - Patient is seen and examined at the bedside. Urology consulted. CT abdomen pending. 09/20 - patient seen and examined at the bedside. CT abdomen shows bilateral hydronephrosis. Requested medical records from other facility 09/19, still pending. Started aspirin/atorvastatin/furosemide. Holding on off Jardiance at this point. Objective vital signs Vital Sign Date Time Temp Pulse Resp B/P (MAP) Pulse Ox O2 Delivery O2 Flow Rate FiO2 09/20/24 13:00 97.7 64 18 157/66 (96) 99 97.7 09/19/24 20:00 Room Air* 0 21 Total Intake and Output 09/19/24 09/19/24 09/20/24 15:00 23:00 07:00 Intake Total 700 ml 550 ml Output Total 625 ml 750 ml Balance 75 ml -200 ml medications Current Medications Medications Dose Ordered Sig/Natalie Route Start Time Stop Time Status Last Admin Dose Admin Tramadol HCl 50 mg Q8HR PO 09/18/24 22:00 09/20/24 05:28 50 MG Ceftriaxone Sodium 50 ml @ 100 mls/hr DAILY IV 09/18/24 21:15 09/20/24 10:44 100 MLS/HR Dextrose 50 ml UD PRN IV 09/19/24 01:45 Diagnostic Test (Pha) 1 strip Q6HR 09/19/24 18:00 09/20/24 12:28 1 STRIP Insulin Human Regular Q6HR SC 09/19/24 18:00 09/20/24 12:36 3 UNITS Morphine Sulfate 2 mg Q4HP PRN IV 09/19/24 14:15 09/20/24 08:09 2 MG Acetaminophen/ Hydrocodone Bitart 1 tab Q4HP PRN PO 09/19/24 14:15 Hold Ibuprofen 600 mg BID PO 09/19/24 22:00 09/20/24 10:45 600 MG Pantoprazole Sodium 40 mg DAILY IV 09/20/24 10:00 09/20/24 10:44 40 MG Mupirocin 1 applic BID EACHNOSTRI 09/19/24 16:45 09/24/24 16:44 09/20/24 10:46 1 APPLIC Vancomycin HCl 0 ml @ 0 mls/hr UD IV 09/19/24 18:00 Vancomycin HCl 150 ml @ 150 mls/hr Q15H IV 09/20/24 12:00 09/20/24 13:49 150 MLS/HR Tamsulosin HCl 0.4 mg QPM PO 09/20/24 18:00 Aspirin 81 mg DAILY PO 09/21/24 10:00 UNV Carvedilol 12.5 mg BID PO 09/20/24 22:00 UNV Furosemide 40 mg DAILY PO 09/21/24 10:00 UNV Sacubitril/ Valsartan 2 tab BID PO 09/20/24 15:00 UNV Examination patient lying in bed, in no acute distress General: Over weight, afebrile, palor, mucosae are moist Cardiovascular: Regular S1 and S2. No murmurs, gallops or rubs. No JVD elevation. No pedal edema Respiratory: Normal B/L air entry on room air. Clear lung sounds on auscultation Abdomen: Soft, epigastric and suprapubic tenderness, right costovertebral angle tenderness nondistended, normoactive bowel sounds, no rebound tenderness, no organomegaly, no masses. Stovall be seen with orange urine Genitourinary: Deferred MSK/skin: Mobilizes 4 limbs. Skin is dry and warm Neurological: No motor, no sensitive deficits, normal speech. Pupils are isocoric and reactive. Psych/Mental Status: A/Ox3 laboratory and microbiology Laboratory Tests 09/20/24 05:13 Test 09/20/24 05:13 Range/Units Serum Glucose 117 H 74-106 mg/dL Microbiology Date/Time Source Procedure Growth Status 09/19/24 05:20 Nose MRSA Screen - Final Methicillin Resistant S.aureus Complete 09/18/24 21:55 Blood Blood Culture - Preliminary Staphylococcus aureus Resulted 09/18/24 17:53 Urine - Stovall Port Urine Culture - Preliminary Presumptive Stacie albicans Resulted Labs and/or images reviewed: Labs reviewed by me, Image(s) reviewed by me Problem List/Assessment/Plan Problem List/Assessment/Plan Sepsis due to complicated UTI: Pyelonephritis Staph bacteremia History of bilateral hydronephrosis and Emphysematous cystitis 2023 Gross Hematuria Mild hydronephrosis IV ceftriaxone started 09/18 IV vancomycin started 09/18 Tramadol and IV morphine for pain control Stovall in place CT abdomen shows bilateral hydronephrosis. Requested medical records from other facility 09/19, still pending. Chronic systolic heart failure Hyperlipidemia Hypertension Ef 30% in 2023 Fluid restrictions and cardiac diet Home medication Entresto started 09/20 Home medication aspirin/atorvastatin/furosemide started 09/20 Holding on off Jardiance at this point. Started atorvastatin 40 mg daily 10 year cardiovascular event risk 25% Uterine prolapse Outpatient workup advised, Patient has OBGYN appointment 09/26 Uncontrolled type 2 diabetes mellitus hemoglobin A1c 9.2 Glucose goal 140-180 mg/dL GI prophylaxis pantoprazole 40 mg daily DVT prophylaxis SCDs Goals of care discussed with the patient for more than 22 minutes, full code status Plan discussed with patient in which all questions have been answered Case discussed with Dr. Brennan Plan discussed with: Patient My Orders My Orders Orders - ZION KIRKPATRICK RESIDENT Procedure Category Date Status Time Mupirocin 2% Oint PHA 09/19/24 In Process Mrsa Nares (Bactroban 16:45 Copy Of Previous RACHEL 09/19/24 In Process Medical Recor 17:05 Obtain Mr From Other ORDERS 09/19/24 Transmitted Facility 17:05 Vancomycin Per PHA 09/19/24 In Process Pharmacy 18:00 Vancomycin PHA 09/20/24 In Process 750mg/150ml 12:00 Vancomycin,Trough LAB 09/21/24 Verified 17:00 Vancomycin Per RACHEL 09/21/24 In Process Pharmacy Protoc 18:00 Creatinine LAB 09/21/24 Verified 17:00 Tamsulosin PHA 09/20/24 In Process Hydrochloride (Flomax) 18:00 Blood Culture KAY 09/20/24 Logged 14:37 Communication Order ORDERS 09/20/24 Transmitted 14:37 Aspirin Enteric PHA 09/21/24 In Process Coated Tablet 10:00 Carvedilol Tablet PHA 09/20/24 In Process (Coreg Tablet) 22:00 Furosemide Tablet PHA 09/21/24 In Process (Lasix Tablet) 10:00 Sacubitril-Valsartan PHA 09/20/24 In Process (Entresto 24-26 Mg 15:00 Date of Service: Sep 20, 2024 Billing Provider: JOSE ALFREDO JARAMILLO MD Common Visit Codes: [id number] INP/OBS CARE(HIGH) ZION KIRKPATRICK Sep 20, 2024 15:26 JOSE ALFREDO JARAMILLO MD Sep 24, 2024 23:29
[2024-09-20] MEDS: SACUBITRIL-VALSARTAN 24mg/26mg TAB PO SCH (15:27)
[2024-09-20 17:00] VITALS: BP 159/85; PULSE 71; RESP 17; TEMP 98.4; O2SAT 96
[2024-09-20] MEDS: TAMSULOSIN HYDROCHLORIDE 0.4 MG CAP PO SCH (17:34)
[2024-09-20 21:00] VITALS: BP 162/72; PULSE 81; RESP 20; TEMP 98; O2SAT 95
[2024-09-20] MEDS: CARVEDILOL 12.5 MG TAB PO SCH (21:48)
[2024-09-20] MEDS: ATORVASTATIN 20 MG TAB PO SCH (21:49)
[2024-09-21 01:00] VITALS: BP 157/65; PULSE 67; RESP 18; TEMP 98; O2SAT 93
[2024-09-21 05:00] VITALS: BP 169/79; PULSE 75; RESP 18; TEMP 97.7; O2SAT 93
[2024-09-21 06:55] LABS: Basophils # (auto) 0.1 10 ^3/uL (0-0.2); Basophils % (auto) 0.6 % (0.0-2.0); Eosinophils # (auto) 0.2 10 ^3/uL (0-0.8); Eosinophils % (auto) 2.6 % (0.0-7.0); Hematocrit 34.9 % (36.0-46.0); Hemoglobin 11.4 g/dL (12.2-16.2); Lymphocytes # (auto) 1.1 10 ^3/uL (0.4-5.4); Lymphocytes % (auto) 12.6 % (10.0-50.0); Mean Corpuscular Hgb Conc. 32.7 g/dL (32.0-36.0); Mean Corpuscular Volume 91.7 fL (80.0-100.0); Monocytes # (auto) 0.5 10 ^3/uL (0-1.3); Monocytes % (auto) 6.1 % (0.0-12.0); Neutrophils # (auto) 6.7 10 ^3/uL (1.6-8.6); Neutrophils % (auto) 78.1 % (37.0-80.0); Nucleated Red Blood Cells % 0.2 %; Platelet Count (auto) 314 10^3/uL (140-450); White Blood Cell 8.6 10^3/uL (4.4-10.8)
[2024-09-21 07:10] LABS: Calcium 9.2 mg/dL (8.7-10.4); Potassium 4.1 mmol/L (3.5-5.1); Sodium 138 mmol/L (136-145)
[2024-09-21 07:11] LABS: Anion Gap 11 (5-15)
[2024-09-21 07:17] LABS: BUN/Creatinine Ratio 10.3 (10.0-20.0); Blood Urea Nitrogen 11 mg/dL (9-23)
[2024-09-21 07:23] LABS: Carbon Dioxide 20 mmol/L (20-31); Chloride 107 mmol/L (98-107); Glucose 129 mg/dL (74-106)
[2024-09-21 08:00] VITALS: BP 157/87; PULSE 68; PULSE 98; RESP 16; TEMP 97.6; O2SAT 94
--- NOTE | 2024-09-21 09:27 | DVHINCON2 ---
DATE OF CONSULTATION: 09/21/2024 REASON FOR CONSULTATION: Uterine prolapse and pain, pelvic pain. HISTORY OF PRESENT ILLNESS: The patient is a 69-year-old 6, para 3, 0, 3, 3, admitted for severe vaginal pain and persistent hematuria. The patient has history of diabetes, hypertension. She reports having had a Stovall placed a week ago at another hospital due to difficulty voiding and she states it was placed traumatically. She came in to get help with her pain. She complains of having hematuria, suprapubic pain. She has had uterine prolapse for approximately 30 years. Her last Pap was many years ago. Pessary was tried. She did not have any luck with that. The patient is hoping to get surgery. PAST MEDICAL HISTORY: Hypertension, hyperlipidemia, CHF, diabetes. PAST SURGICAL HISTORY: Cholecystectomy, two terminations. SOCIAL HISTORY: Smoker, which she states she quit. Occasional drinking. OBSTETRIC AND GYNECOLOGIC HISTORY: Three vaginal deliveries, two terminations, one spontaneous . REVIEW OF SYSTEMS: CONSTITUTIONAL: No fever or chills. RESPIRATORY: No cough, shortness of breath. CARDIOVASCULAR: No chest pain, palpitation. GASTROINTESTINAL: No nausea, vomiting, abdominal pain. GENITOURINARY: No dysuria. Positive for hematuria, vaginal pain. MUSCULOSKELETAL: No neck pain, joint pain. NEUROLOGICAL: No weakness, numbness. ALLERGIES: No known drug allergies. PHYSICAL EXAMINATION: HEENT: Within normal limits. CARDIOVASCULAR: Regular rate and rhythm. LUNGS: Clear to auscultation. BREASTS: Symmetrical. No masses. ABDOMEN: Soft, nontender. PELVIC: Reveals complete prolapse of the uterus, cervix, not ulcerated. EXTREMITIES: No clubbing, cyanosis or edema. IMPRESSION: * Procidentia complete total uterine prolapse. * Bilateral hydronephrosis. * Pelvic pain secondary to prolapse, atrophy. * History of hypertension, congestive heart failure, kidney disease, hyperlipidemia. RECOMMENDATION: The patient needs to get a Pap smear and ultimately a clearance for surgery. Recommend followup at outpatient. We will sign off. Thank you very much for this consultation. DO LUCERO Jarvis TID: [id number] RECEIPT: [id number]
[2024-09-21] MEDS: FUROSEMIDE 40 MG TAB PO SCH (10:18)
[2024-09-21] MEDS: ASPirin-EC 81 mg tab PO SCH (10:19)
--- NOTE | 2024-09-21 10:57 | DVHPNRES ---
Progress Note Date Seen: Sep 21, 2024 Resident Creating Document: ZION KIRKPATRICK RESIDENT Medical Necessity Reason Pt with a Central, PICC or Fol: No Subjective Review of Systems Mr. 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 He was recently hospitalized at [facility] for over a week where she received IV antibiotics/Stovall catheter for vaginal pain. She was discharge and she went to see her PCP, who noticed gross hematuria and Stovall catheter and send her to the ER. She left from the ER and came back 09/18. Reports sharp vaginal pain. Pain is burning in nature. She does not know why the Stovall was placed. She has OBGYN appointment next for uterine prolapse. Echocardiogram completed 07/2023 showed Severely dilated left ventricle. Severely reduced left ventricular systolic function with mid ejection fraction of 30%. There is a global left ventricular wall hypokinesia. There is a grade 1 diastolic dysfunction. Severely dilated right ventricle. Severely reduced right ventricular systolic function. Mildly increased right ventricular systolic pressure at 30 mmHg. The patient denies shortness of breath yellowish continuous nausea/vomiting chills/fever /diarrhea. Stovall draining dark orange urine. UA shows 3+ RBCs and blood. Renal ultrasound shows mild hydronephrosis. Urology consulted. Home meds: Aspirin, atorvastatin carvedilol empagliflozin furosemide insulin lisinopril metformin 09/19 - Patient is seen and examined at the bedside. Urology consulted. CT abdomen pending. 09/20 - patient seen and examined at the bedside. CT abdomen shows bilateral hydronephrosis. Requested medical records from other facility 09/19, still pending. Started aspirin/atorvastatin/furosemide. Holding on off Jardiance at this point. 09/21 - examined at bedside. [facility] not responding for records. OBGYN recommends outpatient follow up for uterine prolapse surgery. Stovall draining dark orange/red urine. Family not at home, can not get records. Objective vital signs Vital Sign Date Time Temp Pulse Resp B/P (MAP) Pulse Ox O2 Delivery O2 Flow Rate FiO2 09/21/24 10:19 72 148/86 09/21/24 10:18 16 09/21/24 08:00 Room Air* 0 21 09/21/24 08:00 97.6 94 97.6 Total Intake and Output 09/20/24 09/20/24 09/21/24 15:00 23:00 07:00 Intake Total 874 ml 1094 ml 150 ml Output Total 2650 ml 6500 ml Balance 874 ml -1556 ml -6350 ml medications Current Medications Medications Dose Ordered Sig/Natalie Route Start Time Stop Time Status Last Admin Dose Admin Tramadol HCl 50 mg Q8HR PO 09/18/24 22:00 09/21/24 06:03 50 MG Ceftriaxone Sodium 50 ml @ 100 mls/hr DAILY IV 09/18/24 21:15 09/21/24 10:15 100 MLS/HR Dextrose 50 ml UD PRN IV 09/19/24 01:45 Diagnostic Test (Pha) 1 strip Q6HR 09/19/24 18:00 09/21/24 06:03 1 STRIP Insulin Human Regular Q6HR SC 09/19/24 18:00 09/21/24 06:06 2 UNITS Morphine Sulfate 2 mg Q4HP PRN IV 09/19/24 14:15 09/21/24 08:10 2 MG Acetaminophen/ Hydrocodone Bitart 1 tab Q4HP PRN PO 09/19/24 14:15 Hold Ibuprofen 600 mg BID PO 09/19/24 22:00 09/21/24 10:19 600 MG Pantoprazole Sodium 40 mg DAILY IV 09/20/24 10:00 09/21/24 10:15 40 MG Mupirocin 1 applic BID EACHNOSTRI 09/19/24 16:45 09/24/24 16:44 09/21/24 10:15 1 APPLIC Vancomycin HCl 0 ml @ 0 mls/hr UD IV 09/19/24 18:00 Vancomycin HCl 150 ml @ 150 mls/hr Q15H IV 09/20/24 12:00 09/21/24 02:46 150 MLS/HR Tamsulosin HCl 0.4 mg QPM PO 09/20/24 18:00 09/20/24 17:34 0.4 MG Aspirin 81 mg DAILY PO 09/21/24 10:00 09/21/24 10:19 81 MG Carvedilol 12.5 mg BID PO 09/20/24 22:00 09/21/24 10:19 12.5 MG Furosemide 40 mg DAILY PO 09/21/24 10:00 09/21/24 10:18 40 MG Sacubitril/ Valsartan 2 tab BID PO 09/20/24 15:00 09/21/24 10:19 2 TAB Atorvastatin Calcium 40 mg HS PO 09/20/24 22:00 09/20/24 21:49 40 MG Hydralazine HCl 10 mg Q6HP PRN IV 09/20/24 15:45 Examination patient lying in bed, in no acute distress General: Over weight, afebrile, palor, mucosae are moist Cardiovascular: Regular S1 and S2. No murmurs, gallops or rubs. No JVD elevation. No pedal edema Respiratory: Normal B/L air entry on room air. Clear lung sounds on auscultation Abdomen: Soft, epigastric and suprapubic tenderness, right costovertebral angle tenderness nondistended, normoactive bowel sounds, no rebound tenderness, no organomegaly, no masses. Stovall be seen with orange urine Genitourinary: Deferred MSK/skin: Mobilizes 4 limbs. Skin is dry and warm Neurological: No motor, no sensitive deficits, normal speech. Pupils are isocoric and reactive. Psych/Mental Status: A/Ox3 laboratory and microbiology Laboratory Tests 09/21/24 05:24 Test 09/21/24 05:24 Range/Units Serum Glucose 129 H 74-106 mg/dL Microbiology Date/Time Source Procedure Growth Status 09/19/24 05:20 Nose MRSA Screen - Final Methicillin Resistant S.aureus Complete 09/18/24 21:55 Blood Blood Culture - Preliminary Staphylococcus aureus Resulted 09/18/24 17:53 Urine - Stovall Port Urine Culture - Preliminary Presumptive Stacie albicans Resulted Labs and/or images reviewed: Labs reviewed by me, Image(s) reviewed by me Problem List/Assessment/Plan Problem List/Assessment/Plan Sepsis due to complicated UTI: Pyelonephritis Staph bacteremia History of bilateral hydronephrosis and Emphysematous cystitis 2023 Gross Hematuria Bilateral hydronephrosis Procidentia complete total uterine prolapse Pelvic pain secondary to prolapse/atrophy IV ceftriaxone started 09/18 IV vancomycin started 09/18 Tramadol and IV morphine for pain control Stovall in place CT abdomen shows bilateral hydronephrosis. Requested medical records from other facility 09/19, still pending. Chronic systolic heart failure Hyperlipidemia Hypertension Ef 30% in 2023 Fluid restrictions and cardiac diet Home medication Entresto started 09/20 Home medication aspirin/atorvastatin/furosemide started 09/20 Holding on off Jardiance at this point. Started atorvastatin 40 mg daily 10 year cardiovascular event risk 25% Uterine prolapse Outpatient workup advised, Patient has OBGYN appointment 09/26 Uncontrolled type 2 diabetes mellitus hemoglobin A1c 9.2 Glucose goal 140-180 mg/dL GI prophylaxis pantoprazole 40 mg daily DVT prophylaxis SCDs Goals of care discussed with the patient for more than 22 minutes, full code status Plan discussed with patient in which all questions have been answered Case discussed with Dr. Barreto Plan discussed with: Patient My Orders My Orders Orders - ZION KIRKPATRICK Procedure Category Date Status Time Tamsulosin PHA 09/20/24 In Process Hydrochloride (Flomax) 18:00 Blood Culture KAY 09/20/24 In Process 14:37 Communication Order ORDERS 09/20/24 Transmitted 14:37 Aspirin Enteric PHA 09/21/24 In Process Coated Tablet 10:00 Carvedilol Tablet PHA 09/20/24 In Process (Coreg Tablet) 22:00 Furosemide Tablet PHA 09/21/24 In Process (Lasix Tablet) 10:00 Sacubitril-Valsartan PHA 09/20/24 In Process (Entresto 24-26 Mg 15:00 Atorvastatin (Lipitor) PHA 09/20/24 In Process 22:00 Sequential RACHEL 09/20/24 In Process Compression Device 15:32 Date of Service: Sep 21, 2024 Billing Provider: JUSTICE BARRETO MD Common Visit Codes: [id number] INP/OBS CARE(HIGH) ZION KIRKPATRICK Sep 21, 2024 10:57 JUSTICE BARRETO MD Sep 22, 2024 18:45
[2024-09-21 12:30] VITALS: BP 137/75; PULSE 68; RESP 16; TEMP 97.8; O2SAT 98
[2024-09-21 16:30] VITALS: BP 136/76; PULSE 80; RESP 16; TEMP 98.4; O2SAT 96
[2024-09-21 21:00] VITALS: BP 128/67; PULSE 83; RESP 17; TEMP 97.9; O2SAT 94
[2024-09-22] VITALS (7 sets, daily range): BP systolic 133–195; BP diastolic 71–106; PULSE 66–92; RESP 16–20; TEMP 97.9–98.9; O2SAT 96–98
[2024-09-22] MEDS: hydrALAZINE HCL 20 MG/ML VL IV PRN (06:13)
[2024-09-22 07:14] LABS: Chloride 105 mmol/L (98-107); Potassium 3.8 mmol/L (3.5-5.1); Sodium 139 mmol/L (136-145)
[2024-09-22 07:15] LABS: Calcium 9.7 mg/dL (8.7-10.4)
[2024-09-22 07:16] LABS: Anion Gap 13 (5-15); Carbon Dioxide 21 mmol/L (20-31)
[2024-09-22 07:28] LABS: BUN/Creatinine Ratio 13.4 (10.0-20.0); Blood Urea Nitrogen 16 mg/dL (9-23)
[2024-09-22 07:55] LABS: Glucose 142 mg/dL (74-106)
[2024-09-22] MEDS ORDERED: ONDANSETRON HCL 4 MG/2 ML VIAL IV PRN (10:45)
[2024-09-22] MEDS: ONDANSETRON HCL 4 MG/2 ML VIAL IV ONE (12:36)
--- NOTE | 2024-09-22 13:06 | DVHPNRES ---
Progress Note Date Seen: Sep 22, 2024 Resident Creating Document: SHANIA SANCHES Medical Necessity Reason Pt with a Central, PICC or Fol: No The following are medically ne: Mariano Catheter Subjective Review of Systems Mr. 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 He was recently hospitalized at [facility] for over a week where she received IV antibiotics/Mariano catheter for vaginal pain. She was discharge and she went to see her PCP, who noticed gross hematuria and Mariano catheter and send her to the ER. She left from the ER and came back 09/18. Reports sharp vaginal pain. Pain is burning in nature. She does not know why the Mariano was placed. She has OBGYN appointment next for uterine prolapse. Echocardiogram completed 07/2023 showed Severely dilated left ventricle. Severely reduced left ventricular systolic function with mid ejection fraction of 30%. There is a global left ventricular wall hypokinesia. There is a grade 1 diastolic dysfunction. Severely dilated right ventricle. Severely reduced right ventricular systolic function. Mildly increased right ventricular systolic pressure at 30 mmHg. The patient denies shortness of breath yellowish continuous nausea/vomiting chills/fever /diarrhea. Mariano draining dark orange urine. UA shows 3+ RBCs and blood. Renal ultrasound shows mild hydronephrosis. Urology consulted. Home meds: Aspirin, atorvastatin carvedilol empagliflozin furosemide insulin lisinopril metformin 09/19 - Patient is seen and examined at the bedside. Urology consulted. CT abdomen pending. 09/20 - patient seen and examined at the bedside. CT abdomen shows bilateral hydronephrosis. Requested medical records from other facility 09/19, still pending. Started aspirin/atorvastatin/furosemide. Holding on off Jardiance at this point. 09/21 - examined at bedside. [facility] not responding for records. OBGYN recommends outpatient follow up for uterine prolapse surgery. Mariano draining dark orange/red urine. Family not at home, can not get records. 11/20/2024-patient was seen today at bedside. Labs and chart reviewed. Patient is hematuria has improved but still mild hematuria. Patient denied any dysuria fever or abdominal pain. CT scan of the abdomen and pelvis revealed-Bladder prolapse. There is a small to moderate amount of gas within the bladder, which may be seen with recent mariano catheter placement or other intervention. Infectious etiology not excluded. Correlate with clinical findings. 2. Moderate bilateral hydronephrosis no obstructing calculus visualized. Similar findings are seen in the prior CT. 3. Moderate to large amount of stool throughout the colon. 4. Small bilateral pleural effusions. 5. Moderate hiatal hernia. Ordered Urology consult. Patient was seen by urologist, recommendation reviewed and appreciated. Ordered Diflucan 200 mg IV daily for Stacie albicans in urine. Objective vital signs Vital Sign Date Time Temp Pulse Resp B/P (MAP) Pulse Ox O2 Delivery O2 Flow Rate FiO2 09/22/24 12:36 97.9 87 20 159/81 (107) 97 97.9 09/22/24 08:00 Room Air* 0 21 Total Intake and Output 09/21/24 09/21/24 09/22/24 15:00 23:00 07:00 Intake Total 150 ml 350 ml Output Total 2725 ml 1000 ml Balance -2575 ml -650 ml medications Current Medications Medications Dose Ordered Sig/Natalie Route Start Time Stop Time Status Last Admin Dose Admin Tramadol HCl 50 mg Q8HR PO 09/18/24 22:00 09/22/24 06:12 50 MG Ceftriaxone Sodium 50 ml @ 100 mls/hr DAILY IV 09/18/24 21:15 09/22/24 09:40 100 MLS/HR Dextrose 50 ml UD PRN IV 09/19/24 01:45 Diagnostic Test (Pha) 1 strip Q6HR 09/19/24 18:00 09/22/24 12:28 1 STRIP Insulin Human Regular Q6HR SC 09/19/24 18:00 09/22/24 12:37 4 UNITS Morphine Sulfate 2 mg Q4HP PRN IV 09/19/24 14:15 09/22/24 08:25 2 MG Acetaminophen/ Hydrocodone Bitart 1 tab Q4HP PRN PO 09/19/24 14:15 Hold Ibuprofen 600 mg BID PO 09/19/24 22:00 09/22/24 09:45 600 MG Pantoprazole Sodium 40 mg DAILY IV 09/20/24 10:00 09/22/24 09:40 40 MG Mupirocin 1 applic BID EACHNOSTRI 09/19/24 16:45 09/24/24 16:44 09/22/24 09:40 1 APPLIC Vancomycin HCl 0 ml @ 0 mls/hr UD IV 09/19/24 18:00 Vancomycin HCl 150 ml @ 150 mls/hr Q15H IV 09/20/24 12:00 09/22/24 08:25 150 MLS/HR Tamsulosin HCl 0.4 mg QPM PO 09/20/24 18:00 09/21/24 17:31 0.4 MG Aspirin 81 mg DAILY PO 09/21/24 10:00 09/22/24 09:44 81 MG Carvedilol 12.5 mg BID PO 09/20/24 22:00 09/22/24 09:44 12.5 MG Furosemide 40 mg DAILY PO 09/21/24 10:00 09/22/24 09:44 40 MG Sacubitril/ Valsartan 2 tab BID PO 09/20/24 15:00 09/22/24 09:45 2 TAB Atorvastatin Calcium 40 mg HS PO 09/20/24 22:00 09/21/24 21:44 40 MG Hydralazine HCl 10 mg Q6HP PRN IV 09/20/24 15:45 09/22/24 06:13 10 MG Ondansetron HCl 4 mg Q4HPRN PRN IV 09/22/24 10:45 Metoclopramide HCl 5 mg Q6HPRN PRN IV 09/22/24 10:45 Examination patient lying in bed, in no acute distress General: Over weight, afebrile, palor, mucosae are moist Cardiovascular: Regular S1 and S2. No murmurs, gallops or rubs. No JVD elevation. No pedal edema Respiratory: Normal B/L air entry on room air. Clear lung sounds on auscultation Abdomen: Soft, epigastric and suprapubic tenderness, right costovertebral angle tenderness nondistended, normoactive bowel sounds, no rebound tenderness, no organomegaly, no masses. Mariano be seen with orange urine Genitourinary: Deferred MSK/skin: Mobilizes 4 limbs. Skin is dry and warm Neurological: No motor, no sensitive deficits, normal speech. Pupils are isocoric and reactive. Psych/Mental Status: A/Ox3 laboratory and microbiology Laboratory Tests 09/22/24 05:02 09/21/24 05:24 Test 09/22/24 05:02 Range/Units Serum Glucose 142 H 74-106 mg/dL Microbiology Date/Time Source Procedure Growth Status 09/20/24 15:48 Blood Blood Culture - Preliminary NO GROWTH AFTER 24 HOURS OF INCUBATION. Resulted 09/19/24 05:20 Nose MRSA Screen - Final Methicillin Resistant S.aureus Complete 09/18/24 17:53 Urine - Mariano Port Urine Culture - Final Presumptive Stacie albicans Complete Problem List/Assessment/Plan Problem List/Assessment/Plan Problem List/Assessment/Plan Sepsis due to complicated UTI: Pyelonephritis Staph bacteremia History of bilateral hydronephrosis and Emphysematous cystitis 2023 Gross Hematuria-improving Bilateral hydronephrosis Procidentia complete total uterine prolapse Pelvic pain secondary to prolapse/atrophy IV ceftriaxone started 09/18 IV vancomycin started 09/18 On 09/22/2024 Ordered Diflucan 200 mg IV daily for Stacie albicans Tramadol and IV morphine for pain control Mariano in place CT abdomen shows bilateral hydronephrosis. Requested medical records from other facility 09/19, still pending. Status post Urology consult, recommend she reviewed and appreciated. Chronic systolic heart failure Hyperlipidemia Hypertension Ef 30% in 2023 Fluid restrictions and cardiac diet Home medication Entresto started 09/20 Home medication aspirin/atorvastatin/furosemide started 09/20 Holding on off Jardiance at this point. Started atorvastatin 40 mg daily 10 year cardiovascular event risk 25% Uterine prolapse Outpatient workup advised, Patient has OBGYN appointment 09/26 Uncontrolled type 2 diabetes mellitus hemoglobin A1c 9.2 Glucose goal 140-180 mg/dL GI prophylaxis pantoprazole 40 mg daily DVT prophylaxis SCDs Goals of care discussed with the patient for more than 22 minutes, full code status Plan discussed with patient in which all questions have been answered Case discussed with Dr. Barreto Plan discussed with: Patient Plan discussed with: Patient (RN), Other My Orders My Orders Orders - SHANIA SANCHES RESIDENT Procedure Category Date Status Time Ondansetron Hcl PHA 09/22/24 In Process (Zofran) 10:45 Metoclopramide PHA 09/22/24 In Process Injection (Reglan 10:45 * Urology Consult CONS 09/22/24 Transmitted 10:35 Date of Service: Sep 22, 2024 Billing Provider: JUSTICE BARRETO MD Common Visit Codes: [id number] INP/OBS CARE(HIGH) SHANIA SANCHES RESIDENT Sep 22, 2024 13:06 JUSTICE BARRETO MD Sep 22, 2024 18:46
--- NOTE | 2024-09-22 13:41 | DVHINCON2 ---
Date of service: Sep 22, 2024 Referring Physician hospitalist Reason for Consultation hematuria and hydronephrosis History of Present Illness History Source: Patient, RN Notes, MD Notes, Old Records Exam Limitations: No limitations HPI 69 yo female with hx of CHF (EF 35%), COPD, DMII, CKD, procidentia, and urinary retention presented to the ER 09/17 for intermittent hematuria noted in mariano catheter bag that was placed at [facility]. Denies prior pelvic or surgeries. Blood cultures are positive. Urine culture grew omari albicans. CT shows bladder prolapse and bilateral hydronephrosis unchanged since prior (08/2023). She has been evaluated by gynecology with plans for outpt follow up. She tried a failed pessary. Home Meds Reported Medications Sacubitril-Valsartan (Entresto 97-103 mg) 1 Tab Tab, 1 TAB PO BID, TAB 09/19/24 Multiple Vitamins W/ Minerals (Centrum Multivitamin Flav) 1 Pow Pow, 1 POW PO DAILY, POW 04/23/24 Aspirin (Aspir-81) 81 Mg Tab, 81 MG PO DAILY, TAB 04/23/24 Atorvastatin Calcium (Lipitor) 40 Mg Tab, 40 MG PO DAILY, TAB 04/23/24 Methylprednisolone (Methylprednisolone) 4 Mg Tab, 4 MG PO DAILY, TAB 04/23/24 Metformin Hydrochloride (Metformin Hcl) 500 Mg Tab, 1 TAB PO BID for DIABETES 12/20/23 Furosemide (Lasix) 40 Mg Tab, 1 TAB PO DAILY for CHF 12/20/23 Empagliflozin (Jardiance) 10 Mg Tab, 1 TAB PO DAILY for DIABETES 12/20/23 Insulin Regular (Human) (Humulin R) 100 Unit/Ml Inj, UNIT SC ACHS for PER SLIDING SCALE 12/18/23 Carvedilol (COREG) 12.5 Mg Tab, 1 TAB PO BID for HYPERTENSION 12/18/23 Discontinued Reported Medications Lisinopril (Lisinopril) 20 Mg Tab, 10 MG PO DAILY, TAB 04/23/24 Past Medical History Cardiac: CHF, HTN Infectious Disease: MRSA Renal/: UTI, Hematuria Endocrine: IDDM Past Surgical History: No pertinent Hx Patient Family History: FH: liver cancer G8 MOTHER Smoker: No Hx (Negative) Alocohol: None Drugs: None Domestic Violence: Neg Review of Systems Gastrointestinal: Abdominal Pain H&P Exam Vital Signs Vital Signs Date Time Temp Pulse Resp B/P (MAP) Pulse Ox O2 Delivery O2 Flow Rate FiO2 09/22/24 12:36 97.9 87 20 159/81 (107) 97 97.9 09/22/24 08:00 Room Air* 0 21 Labs/Xrays [address] [address] Ph: [phone] DIAGNOSTIC IMAGING Diagnostic Imaging Report : [id number] Signed PATIENT: PB CELESTIN ACCT: [id number] UNIT: [id number] : 1955 [facility] AGE / SEX: 69 / F ADM STATUS: ADM IN SERVICE 00 ORDERING PHYSICIAN: WHIT GUTIERREZ PROCEDURE(s): KIDUS - KIDNEY REASON: RULE OUT HYDRONEPHROSIS ORDER NUMBER(s): [id number], ACCESSION NUMBER(s): [id number] INDICATION: RULE OUT HYDRONEPHROSIS TECHNIQUE: Multiple real-time sonographic images of the kidneys and bladder were obtained. COMPARISON: US KIDNEY on DOS: 09/21/[address] abdomen and pelvis 09/23/2023 FINDINGS: The right kidney measures 9.3 cm in length, which is normal in size. There is normal echogenicity of the right kidney. Mild hydronephrosis. The left kidney measures 10.6 cm in length, which is normal in size. There is normal echogenicity of the left kidney. No hydronephrosis. Urinary bladder is decompressed with Mariano catheter in place. IMPRESSION: Mild right hydronephrosis. Urinary bladder is decompressed with Mariano catheter in place. ATED BY: ANTONELLA CHAVEZ DO DICTATED DATE/TIME: 09/18/242149 SIGNED BY: ANTONELLA CHAVEZ DO SIGNED DATE/TIME: 09/18/242149 CC: [address] [address] Ph: [phone] DIAGNOSTIC IMAGING Diagnostic Imaging Report : [id number] Signed PATIENT: PB CELESTIN ACCT: [id number] UNIT: [id number] : 1955 LOC: [facility] ROOM / BED: 0297 / A AGE / SEX: 69 / F ADM STATUS: ADM IN SERVICE 1102 ORDERING PHYSICIAN: ZION KIRKPATRICK RESIDENT PROCEDURE(s): ABPL - CT AB PEL WO CON-NO ORAL OR IV REASON: R/o nephrolithiasis. Hematuria ORDER NUMBER(s): [id number], ACCESSION NUMBER(s): [id number] CLINICAL INFORMATION: 69 years old, Female; hematuria. Rule out nephrolithiasis. TECHNIQUE: Axial CT images of the abdomen and pelvis were obtained without IV contrast. Coronal and sagittal reformatted images were obtained, reviewed, and stored. Evaluation of the parenchymal organs is limited without IV contrast. Evaluation of the bowel and mesentery is limited without oral contrast. All CT scans at this medical facility are performed using dose modulation techniques as appropriate to a performed exam including the following: Automated exposure control was utilized; adjustment of the MA and/or KV according to patient size; and use of iterative reconstruction technique. CTDIvol = 9.54 mGy DLP = 453.5 mGy-cm COMPARISON: CT CT AB PEL WO CON-NO ORAL OR IV on DOS: 09/23/23 FINDINGS: Lung bases: Small bilateral pleural effusions with overlying mild com pressive atelectasis. Moderate hiatal hernia. Liver: Grossly unremarkable in its noncontrast enhanced appearance. No abnormal density or focal lesion identified. Biliary: No calcified gallstones or biliary ductal dilatation. Spleen: Unremarkable. Pancreas: Grossly unremarkable in its noncontrast enhanced appearance. Adrenal glands: Unremarkable. No mass. Kidneys: Moderate bilateral hydronephrosis with no obstructing calculi visualized. Similar findings are seen on the prior CT. Aorta/Vascular: Moderate atherosclerotic calcification. No abdominal aortic aneurysm. Retroperitoneum: No mass or lymphadenopathy. Bowel/mesentery: No small bowel obstruction. Appendix is not visualized. Moderate to large amount of stool throughout the colon. Pelvic organs: Grossly unremarkable. Bladder: There is partially visualized bladder prolapse. There is gas within the bladder. Abdominal wall: Mild diffuse body wall edema. Bones: Grade 1 anterolisthesis of L4 on L5. No acute fracture or suspicious intr aosseous lesion. IMPRESSION: 1. Bladder prolapse. There is a small to moderate amount of gas within the bladder, which may be seen with recent mariano catheter placement or other intervention. Infectious etiology not excluded. Correlate with clinical fi ndings. 2. Moderate bilateral hydronephrosis no obstructing calculus visualized. Similar findings are seen in the prior CT. 3. Moderate to large amount of stool throughout the colon. 4. Small bilateral pleural effusions. 5. Moderate hiatal hernia. 6. Additional findings as described above. ATED BY: DIEGO PIMENTEL DO DICTATED DATE/TIME: 09/19/24 1157 SIGNED BY: DIEGO PIMENTEL DO SIGNED DATE/TIME: 09/19/24 1157 CC: Labs Test 09/22/24 12:27 09/22/24 05:02 09/21/24 17:16 09/21/24 05:24 Range/Units POC Glucose 208 H 70-106 mg/dl Sodium Level 139 136-145 mmol/L Potassium Level 3.8 3.5-5.1 mmol/L Chloride Level 105 98-107 mmol/L Carbon Dioxide Level 21 20-31 mmol/L Anion Gap 13 5-15 Blood Urea Nitrogen 16 9-23 mg/dL Creatinine 1.19 H 0.550-1.02 mg/dL Glomerular Filtration Rate Calc 49 >90 mL/min BUN/Creatinine Ratio 13.4 10.0-20.0 Serum Glucose 142 H 74-106 mg/dL Calcium Level 9.7 8.7-10.4 mg/dL Vancomycin Level Trough 18.4 H 5-10 ug/mL White Blood Count 8.6 4.4-10.8 10^3/uL Red Blood Count 3.80 L 4.0-5.20 10^6/uL Hemoglobin 11.4 L 12.2-16.2 g/dL Hematocrit 34.9 #L 36.0-46.0 % Mean Corpuscular Volume 91.7 80.0-100.0 fL Mean Corpuscular Hemoglobin 30.0 28.0-32.0 pg Mean Corpuscular Hemoglobin Concent 32.7 32.0-36.0 g/dL Red Cell Distribution Width 15.0 H 11.8-14.3 % Platelet Count 314 140-450 10^3/uL Mean Platelet Volume 7.7 6.9-10.8 fL Neutrophils (%) (Auto) 78.1 37.0-80.0 % Lymphocytes (%) (Auto) 12.6 10.0-50.0 % Monocytes (%) (Auto) 6.1 0.0-12.0 % Eosinophils (%) (Auto) 2.6 0.0-7.0 % Basophils (%) (Auto) 0.6 0.0-2.0 % Neutrophils # (Auto) 6.7 1.6-8.6 10 ^3/uL Lymphocytes # (Auto) 1.1 0.4-5.4 10 ^3/uL Monocytes # (Auto) 0.5 0-1.3 10 ^3/uL Eosinophils # (Auto) 0.2 0-0.8 10 ^3/uL Basophils # (Auto) 0.1 0-0.2 10 ^3/uL Nucleated Red Blood Cells 0.2 % Test 09/20/24 05:13 09/19/24 03:30 09/18/24 17:53 09/18/24 14:08 Range/Units Total Bilirubin 0.2 0.2-1.0 mg/dL Aspartate Amino Transferase (AST) 16 13-40 U/L Alanine Aminotransferase (ALT) 15 7-40 U/L Alkaline Phosphatase 94 46-116 U/L Total Protein 6.2 5.7-8.2 g/dL Albumin 3.4 3.2-4.8 g/dL Prothrombin Time 10.9 9.3-11.8 sec Prothrombin Time INR 1.03 0.9-1.15 Activated Partial Thromboplast Time 30.2 24.5-34.5 SEC Hemoglobin A1c 9.4 H <5.7 % A1C Lactic Acid Level 0.6 0.4-2.0 mmol/L Phosphorus Level 3.1 2.4-5.1 mg/dL Magnesium Level 1.8 1.6-2.6 mg/dL B-Type Natriuretic Peptide 427.90 0-100 pg/mL Triglycerides Level 109 < 150 mg/dL Cholesterol Level 89 < 200 mg/dL LDL Cholesterol 46 < 100 mg/dL HDL Cholesterol 26 L 40-59 mg/dL Vitamin B12 Level 927 H 211-911 pg/mL Vitamin D 25-Hydroxy 29.1 L 30.0-100 ng/mL Thyroid Stimulating Hormone (TSH) 1.70 0.55-4.78 uIU/mL Hepatitis B Surface Antigen Negative Negative Hepatitis B Surface Antibody Negative Negative Hepatitis C Antibody Reactive *A Negative Urine Color Light-yellow Yellow Urine Clarity Turbid H Clear Urine pH 5.5 5.0-9.0 Urine Specific [place] 1.022 1.001-1.035 Urine Protein 1+ H Negative Urine Ketones Negative Negative Urine Blood 3+ H Negative /uL Urine Nitrite Negative Negative Urine Bilirubin Negative Negative Urine Urobilinogen Normal Negative mg/dL Urine Leukocyte Esterase 1+ Negative /uL Urine RBC 216 0 - 4 /hpf Urine Microscopic WBC 77 H 0-5 /HPF Urine Squamous Epithelial Cells Few <5 /hpf Urine Bacteria None seen None Seen /hpf Urine Mucus Few None Seen Urine Yeast (Budding) Many None Seen /hpf Urine Glucose 4+ H Normal mg/dL Erythrocyte Sedimentation Rate 78 H 0-20 mm/hr C-Reactive Protein High Sensitivity 2.31 H <1.0 mg/dL Microbiology Date/Time Source Procedure Growth Status 09/20/24 15:48 Blood Blood Culture - Preliminary NO GROWTH AFTER 24 HOURS OF INCUBATION. Resulted 09/19/24 05:20 Nose MRSA Screen - Final Methicillin Resistant S.aureus Complete 09/18/24 17:53 Urine - Mariano Port Urine Culture - Final Presumptive Omari albicans Complete Assessment/Plan Problem List: (1) Pneumonia (2) Acute diastolic CHF (congestive heart failure) (3) Hyperglycemia (4) Acute renal failure (5) Hyponatremia (6) Elevated troponin (7) DKA (diabetic ketoacidosis) (8) Weakness (9) Chest pain (10) Hematuria (11) Uncontrolled diabetes mellitus (12) Intractable abdominal pain Plan emphysematous cystitis with hematuria - mariano, abx hydronephrosis - mariano with monthly exchanges, monitor renal function omari in urine - treat with fluconazole if symptomatic MRSA bacteremia - defer to ID/primary procidentia - evaluated by gynecology urology signing off, follow up outpt 2-3 weeks Plan discussed with: Patient, Other KERMIT CORNELL NP Sep 22, 2024 13:41
[2024-09-22] MEDS: FLUCONAZOLE 200MG/100ML 100 ML IV ONE (15:26)
[2024-09-22] MEDS: METOCLOPRAMIDE HCL 5MG/ml INJ 2ml VIAL IV PRN (20:10)
[2024-09-23] VITALS (7 sets, daily range): BP systolic 134–170; BP diastolic 75–96; PULSE 82–99; RESP 14–20; TEMP 97.5–99.1; O2SAT 95–97
[2024-09-23 06:49] LABS: Chloride 102 mmol/L (98-107)
[2024-09-23 06:50] LABS: Anion Gap 15 (5-15); Carbon Dioxide 20 mmol/L (20-31); Sodium 137 mmol/L (136-145)
[2024-09-23 06:51] LABS: Calcium 9.8 mg/dL (8.7-10.4)
[2024-09-23 06:55] LABS: Potassium 3.2 mmol/L (3.5-5.1)
[2024-09-23 06:56] LABS: BUN/Creatinine Ratio 12.7 (10.0-20.0); Blood Urea Nitrogen 15 mg/dL (9-23)
[2024-09-23 07:06] LABS: Glucose 158 mg/dL (74-106)
[2024-09-23 08:25] LABS: Basophils # (auto) 0.1 10 ^3/uL (0-0.2); Basophils % (auto) 0.5 % (0.0-2.0); Eosinophils # (auto) 0.1 10 ^3/uL (0-0.8); Eosinophils % (auto) 0.9 % (0.0-7.0); Hematocrit 37.7 % (36.0-46.0); Hemoglobin 12.7 g/dL (12.2-16.2); Lymphocytes # (auto) 1.2 10 ^3/uL (0.4-5.4); Lymphocytes % (auto) 11.1 % (10.0-50.0); Mean Corpuscular Hemoglobin 30.3 pg (28.0-32.0); Mean Corpuscular Hgb Conc. 33.6 g/dL (32.0-36.0); Mean Corpuscular Volume 90.3 fL (80.0-100.0); Monocytes # (auto) 0.6 10 ^3/uL (0-1.3); Monocytes % (auto) 5.6 % (0.0-12.0); Neutrophils % (auto) 81.9 % (37.0-80.0); Nucleated Red Blood Cells % 0.2 %; Platelet Count (auto) 374 10^3/uL (140-450); Red Blood Cells 4.17 10^6/uL (4.0-5.20); Red Cell Distribution Width 14.9 % (11.8-14.3)
[2024-09-23] MEDS: FLUCONAZOLE 200MG/100ML 100 ML IV SCH (09:52)
[2024-09-23] MEDS ORDERED: CEFEPIME 2GM/50ML NS 50 ML IV SCH (10:30)
[2024-09-23] MEDS: POTASSIUM EFFERVESENT TAB 25 MEQ PO ONE ×2 (10:37→13:13)
[2024-09-23] MEDS: SODIUM CHLORIDE 0.9% 1,000 ML IV SCH (15:35)
[2024-09-23 16:55] LABS: Basophils # (auto) 0 10 ^3/uL (0-0.2); Basophils % (auto) 0.3 % (0.0-2.0); Eosinophils # (auto) 0.1 10 ^3/uL (0-0.8); Eosinophils % (auto) 1.4 % (0.0-7.0); Hematocrit 37.7 % (36.0-46.0); Hemoglobin 12.5 g/dL (12.2-16.2); Lymphocytes # (auto) 1.2 10 ^3/uL (0.4-5.4); Lymphocytes % (auto) 12.4 % (10.0-50.0); Mean Corpuscular Hgb Conc. 33.3 g/dL (32.0-36.0); Mean Corpuscular Volume 90.2 fL (80.0-100.0); Monocytes # (auto) 0.7 10 ^3/uL (0-1.3); Monocytes % (auto) 7.1 % (0.0-12.0); Neutrophils # (auto) 7.7 10 ^3/uL (1.6-8.6); Neutrophils % (auto) 78.8 % (37.0-80.0); Nucleated Red Blood Cells % 0.1 %; Platelet Count (auto) 385 10^3/uL (140-450); Red Blood Cells 4.17 10^6/uL (4.0-5.20); White Blood Cell 9.7 10^3/uL (4.4-10.8)
--- NOTE | 2024-09-23 16:59 | DVHPNRES ---
Progress Note Date Seen: Sep 23, 2024 Resident Creating Document: ZION KIRKPATRICK RESIDENT Medical Necessity Reason Pt with a Central, PICC or Fol: No The following are medically ne: Stovall Catheter Subjective Review of Systems Mr. 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 He was recently hospitalized at [facility] for over a week where she received IV antibiotics/Stovall catheter for vaginal pain. She was discharge and she went to see her PCP, who noticed gross hematuria and Stovall catheter and send her to the ER. She left from the ER and came back 09/18. Reports sharp vaginal pain. Pain is burning in nature. She does not know why the Stovall was placed. She has OBGYN appointment next for uterine prolapse. Echocardiogram completed 07/2023 showed Severely dilated left ventricle. Severely reduced left ventricular systolic function with mid ejection fraction of 30%. There is a global left ventricular wall hypokinesia. There is a grade 1 diastolic dysfunction. Severely dilated right ventricle. Severely reduced right ventricular systolic function. Mildly increased right ventricular systolic pressure at 30 mmHg. The patient denies shortness of breath yellowish continuous nausea/vomiting chills/fever /diarrhea. Stovall draining dark orange urine. UA shows 3+ RBCs and blood. Renal ultrasound shows mild hydronephrosis. Urology consulted. Home meds: Aspirin, atorvastatin carvedilol empagliflozin furosemide insulin lisinopril metformin 09/19 - Patient is seen and examined at the bedside. Urology consulted. CT abdomen pending. 09/20 - patient seen and examined at the bedside. CT abdomen shows bilateral hydronephrosis. Requested medical records from other facility 09/19, still pending. Started aspirin/atorvastatin/furosemide. Holding on off Jardiance at this point. 09/21 - examined at bedside. [facility] not responding for records. OBGYN recommends outpatient follow up for uterine prolapse surgery. Stovall draining dark orange/red urine. Family not at home, can not get records. 09/23 - patient is tachycardic, white cell count increased to 11. Repeated blood cultures today, echocardiogram ordered to rule out infective endocarditis, started cefepime IV. Repeat CBC to follow up with WBC count Objective vital signs Vital Sign Date Time Temp Pulse Resp B/P (MAP) Pulse Ox O2 Delivery O2 Flow Rate FiO2 09/23/24 13:00 98.0 82 18 154/81 (105) 96 98.0 09/23/24 08:00 Room Air* 0 21 Total Intake and Output 09/22/24 09/22/24 09/23/24 15:00 23:00 07:00 Intake Total 440 ml 1040 ml 250 ml Output Total 1400 ml 450 ml Balance 440 ml -360 ml -200 ml medications Current Medications Medications Dose Ordered Sig/Natalie Route Start Time Stop Time Status Last Admin Dose Admin Tramadol HCl 50 mg Q8HR PO 09/18/24 22:00 09/23/24 15:08 50 MG Dextrose 50 ml UD PRN IV 09/19/24 01:45 Diagnostic Test (Pha) 1 strip Q6HR 09/19/24 18:00 09/23/24 12:30 1 STRIP Insulin Human Regular Q6HR SC 09/19/24 18:00 09/23/24 12:50 3 UNITS Morphine Sulfate 2 mg Q4HP PRN IV 09/19/24 14:15 09/23/24 10:57 2 MG Acetaminophen/ Hydrocodone Bitart 1 tab Q4HP PRN PO 09/19/24 14:15 Hold Ibuprofen 600 mg BID PO 09/19/24 22:00 09/23/24 09:54 600 MG Pantoprazole Sodium 40 mg DAILY IV 09/20/24 10:00 09/23/24 10:00 40 MG Mupirocin 1 applic BID EACHNOSTRI 09/19/24 16:45 09/24/24 16:44 09/23/24 09:51 1 APPLIC Vancomycin HCl 0 ml @ 0 mls/hr UD IV 09/19/24 18:00 Tamsulosin HCl 0.4 mg QPM PO 09/20/24 18:00 09/22/24 18:47 0.4 MG Aspirin 81 mg DAILY PO 09/21/24 10:00 09/23/24 09:53 81 MG Carvedilol 12.5 mg BID PO 09/20/24 22:00 09/23/24 09:53 12.5 MG Furosemide 40 mg DAILY PO 09/21/24 10:00 09/23/24 09:53 40 MG Sacubitril/ Valsartan 2 tab BID PO 09/20/24 15:00 09/23/24 09:54 2 TAB Atorvastatin Calcium 40 mg HS PO 09/20/24 22:00 09/22/24 21:37 40 MG Hydralazine HCl 10 mg Q6HP PRN IV 09/20/24 15:45 09/22/24 06:13 10 MG Ondansetron HCl 4 mg Q4HPRN PRN IV 09/22/24 10:45 Metoclopramide HCl 5 mg Q6HPRN PRN IV 09/22/24 10:45 09/22/24 20:10 5 MG Fluconazole 100 ml @ 100 mls/hr DAILY IV 09/23/24 10:00 09/23/24 09:52 100 MLS/HR Vancomycin HCl 150 ml @ 150 mls/hr Q15H IV 09/23/24 20:00 Cefepime HCl 50 ml @ 12.5 mls/hr Q12HR IV 09/23/24 22:00 Examination patient lying in bed, in no acute distress General: Over weight, afebrile, palor, mucosae are moist Cardiovascular: Regular S1 and S2. No murmurs, gallops or rubs. No JVD elevation. No pedal edema Respiratory: Normal B/L air entry on room air. Clear lung sounds on auscultation Abdomen: Soft, epigastric and suprapubic tenderness, resolving right costovertebral angle tenderness nondistended, normoactive bowel sounds, no rebound tenderness, no organomegaly, no masses. Stovall be seen with orange urine Genitourinary: Deferred MSK/skin: Mobilizes 4 limbs. Skin is dry and warm Neurological: No motor, no sensitive deficits, normal speech. Pupils are isocoric and reactive. Psych/Mental Status: A/Ox3 laboratory and microbiology Laboratory Tests 09/23/24 05:29 Test 09/23/24 05:29 Range/Units Serum Glucose 158 H 74-106 mg/dL Microbiology Date/Time Source Procedure Growth Status 09/20/24 15:48 Blood Blood Culture - Preliminary NO GROWTH AFTER 72 HOURS OF INCUBATION. Resulted 09/19/24 05:20 Nose MRSA Screen - Final Methicillin Resistant S.aureus Complete 09/18/24 17:53 Urine - Stovall Port Urine Culture - Final Presumptive Stacie albicans Complete Labs and/or images reviewed: Labs reviewed by me, Image(s) reviewed by me Problem List/Assessment/Plan Problem List/Assessment/Plan Sepsis due to complicated UTI: Pyelonephritis Staph bacteremia History of bilateral hydronephrosis and Emphysematous cystitis 2023 Gross Hematuria Bilateral hydronephrosis Procidentia complete total uterine prolapse Pelvic pain secondary to prolapse/atrophy IV ceftriaxone started 09/18 till 09/23 IV vancomycin started 09/18 Tramadol and IV morphine for pain control Stovall in place CT abdomen shows bilateral hydronephrosis. Requested medical records from other facility 09/19, still pending. Repeated blood cultures 09/23 Started IV cefepime 09/23 Chronic systolic heart failure Hyperlipidemia Hypertension Rule out infective endocarditis Ef 30% in 2023 Fluid restrictions and cardiac diet Home medication Entresto started 09/20 Home medication aspirin/atorvastatin/furosemide started 09/20 Holding on off Jardiance at this point. Started atorvastatin 40 mg daily 10 year cardiovascular event risk 25% Echocardiogram order to/242 rule out infective endocarditis Uterine prolapse Outpatient workup advised, Patient has OBGYN appointment 09/26 Uncontrolled type 2 diabetes mellitus hemoglobin A1c 9.2 Glucose goal 140-180 mg/dL GI prophylaxis pantoprazole 40 mg daily DVT prophylaxis SCDs, given the hematuria Goals of care discussed with the patient for more than 22 minutes, full code status Plan discussed with patient in which all questions have been answered Case discussed with Dr. Brennan Plan discussed with: Patient My Orders My Orders Orders - ZION KIRKPATRICK RESIDENT Procedure Category Date Status Time Vancomycin Per [facility] 09/22/24 In Process Pharmacy Protoc 23:00 * Picc Line Consult CONS 09/23/24 Transmitted 02:10 Vancomycin PHA 09/23/24 In Process 750mg/150ml 20:00 Complete Blood Count LAB 09/24/24 Verified 04:00 Creatinine LAB 09/24/24 Verified 04:00 Vancomycin,Trough LAB 09/25/24 Verified 16:00 Vancomycin Per [facility] 09/23/24 In Process Pharmacy Protoc 09:52 Blood Culture KAY 09/23/24 In Process 10:18 Complete Blood Count LAB 09/23/24 In Process 15:30 Cefepime 2gm/50ml Ns PHA 09/23/24 In Process (Maxipime 2gm/50ml) 22:00 Date of Service: Sep 23, 2024 Billing Provider: JOSE ALFREDO JARAMILLO MD Common Visit Codes: [id number] INP/OBS CARE(HIGH) ZION KIRKPATRICK RESIDENT Sep 23, 2024 16:59 JOSE ALFREDO JARAMILLO MD Sep 24, 2024 23:42
[2024-09-23] MEDS: VANCOMYCIN 750mg/150ml 150 ML IV SCH (20:54)
[2024-09-23] MEDS: CEFEPIME 2GM/50ML NS 50 ML IV SCH (21:54)
[2024-09-24] VITALS (7 sets, daily range): BP systolic 91–153; BP diastolic 44–79; PULSE 73–96; RESP 16–19; TEMP 98–98.3; O2SAT 93–100
[2024-09-24 07:47] LABS: Basophils # (auto) 0 10 ^3/uL (0-0.2); Basophils % (auto) 0.5 % (0.0-2.0); Eosinophils # (auto) 0.2 10 ^3/uL (0-0.8); Eosinophils % (auto) 2.3 % (0.0-7.0); Hematocrit 36.7 % (36.0-46.0); Hemoglobin 12.5 g/dL (12.2-16.2); Lymphocytes # (auto) 1.3 10 ^3/uL (0.4-5.4); Lymphocytes % (auto) 14.9 % (10.0-50.0); Mean Corpuscular Hemoglobin 30.8 pg (28.0-32.0); Mean Corpuscular Hgb Conc. 33.9 g/dL (32.0-36.0); Mean Corpuscular Volume 90.7 fL (80.0-100.0); Monocytes # (auto) 0.6 10 ^3/uL (0-1.3); Neutrophils # (auto) 6.4 10 ^3/uL (1.6-8.6); Neutrophils % (auto) 75.3 % (37.0-80.0); Nucleated Red Blood Cells % 0.1 %; Platelet Count (auto) 351 10^3/uL (140-450); Red Blood Cells 4.04 10^6/uL (4.0-5.20); White Blood Cell 8.6 10^3/uL (4.4-10.8)
[2024-09-24 07:49] LABS: Chloride 100 mmol/L (98-107); Potassium 3.7 mmol/L (3.5-5.1)
[2024-09-24 07:50] LABS: Anion Gap 10 (5-15); Calcium 9.2 mg/dL (8.7-10.4); Carbon Dioxide 21 mmol/L (20-31)
[2024-09-24 07:55] LABS: BUN/Creatinine Ratio 11.1 (10.0-20.0); Blood Urea Nitrogen 13 mg/dL (9-23)
[2024-09-24 07:56] LABS: Glucose 166 mg/dL (74-106); Sodium 131 mmol/L (136-145)
[2024-09-24] MEDS ORDERED: LINE1TAB6 PO (10:23)
[2024-09-24] MEDS: POTASSIUM EFFERVESENT TAB 25 MEQ PO ONE (10:59)
--- NOTE | 2024-09-24 16:02 | DVHPNRES ---
Progress Note Date Seen: Sep 24, 2024 Resident Creating Document: JN PORRAS Medical Necessity Reason Pt with a Central, PICC or Fol: No The following are medically ne: Stovall Catheter Subjective Review of Systems Mr. 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 He was recently hospitalized at [facility] for over a week where she received IV antibiotics/Stovall catheter for vaginal pain. She was discharge and she went to see her PCP, who noticed gross hematuria and Stovall catheter and send her to the ER. She left from the ER and came back 09/18. Reports sharp vaginal pain. Pain is burning in nature. She does not know why the Stovall was placed. She has OBGYN appointment next for uterine prolapse. Echocardiogram completed 07/2023 showed Severely dilated left ventricle. Severely reduced left ventricular systolic function with mid ejection fraction of 30%. There is a global left ventricular wall hypokinesia. There is a grade 1 diastolic dysfunction. Severely dilated right ventricle. Severely reduced right ventricular systolic function. Mildly increased right ventricular systolic pressure at 30 mmHg. The patient denies shortness of breath yellowish continuous nausea/vomiting chills/fever /diarrhea. Stovall draining dark orange urine. UA shows 3+ RBCs and blood. Renal ultrasound shows mild hydronephrosis. Urology consulted. Home meds: Aspirin, atorvastatin carvedilol empagliflozin furosemide insulin lisinopril metformin 09/19 - Patient is seen and examined at the bedside. Urology consulted. CT abdomen pending. 09/20 - patient seen and examined at the bedside. CT abdomen shows bilateral hydronephrosis. Requested medical records from other facility 09/19, still pending. Started aspirin/atorvastatin/furosemide. Holding on off Jardiance at this point. 09/21 - examined at bedside. [facility] not responding for records. OBGYN recommends outpatient follow up for uterine prolapse surgery. Stovall draining dark orange/red urine. Family not at home, can not get records. 09/23 - patient is tachycardic, white cell count increased to 11. Repeated blood cultures today, echocardiogram ordered to rule out infective endocarditis, started cefepime IV. Repeat CBC to follow up with WBC count 09/24 - patient seen and examined at the bedside. WBC count 8. Repeat blood culture negative. Pending echocardiogram Objective vital signs Vital Sign Date Time Temp Pulse Resp B/P (MAP) Pulse Ox O2 Delivery O2 Flow Rate FiO2 09/24/24 14:47 73 18 124/79 09/24/24 13:00 98.2 96 98.2 09/24/24 08:00 Room Air* 0 21 Total Intake and Output 09/23/24 09/23/24 09/24/24 15:00 23:00 07:00 Intake Total 50 ml 786 ml 500 ml Output Total 1000 ml 650 ml Balance 50 ml -214 ml -150 ml medications Current Medications Medications Dose Ordered Sig/Natalie Route Start Time Stop Time Status Last Admin Dose Admin Tramadol HCl 50 mg Q8HR PO 09/18/24 22:00 09/24/24 13:45 50 MG Dextrose 50 ml UD PRN IV 09/19/24 01:45 Diagnostic Test (Pha) 1 strip Q6HR 09/19/24 18:00 09/24/24 11:30 1 STRIP Insulin Human Regular Q6HR SC 09/19/24 18:00 09/24/24 11:47 3 UNITS Morphine Sulfate 2 mg Q4HP PRN IV 09/19/24 14:15 09/24/24 14:17 2 MG Acetaminophen/ Hydrocodone Bitart 1 tab Q4HP PRN PO 09/19/24 14:15 Hold Ibuprofen 600 mg BID PO 09/19/24 22:00 09/24/24 09:40 600 MG Pantoprazole Sodium 40 mg DAILY IV 09/20/24 10:00 09/24/24 09:39 40 MG Mupirocin 1 applic BID EACHNOSTRI 09/19/24 16:45 09/24/24 16:44 09/24/24 09:37 1 APPLIC Vancomycin HCl 0 ml @ 0 mls/hr UD IV 09/19/24 18:00 Tamsulosin HCl 0.4 mg QPM PO 09/20/24 18:00 09/23/24 17:32 0.4 MG Aspirin 81 mg DAILY PO 09/21/24 10:00 09/24/24 09:38 81 MG Carvedilol 12.5 mg BID PO 09/20/24 22:00 09/24/24 09:40 12.5 MG Furosemide 40 mg DAILY PO 09/21/24 10:00 09/24/24 09:38 40 MG Sacubitril/ Valsartan 2 tab BID PO 09/20/24 15:00 09/24/24 09:38 2 TAB Atorvastatin Calcium 40 mg HS PO 09/20/24 22:00 09/23/24 20:54 40 MG Hydralazine HCl 10 mg Q6HP PRN IV 09/20/24 15:45 09/22/24 06:13 10 MG Ondansetron HCl 4 mg Q4HPRN PRN IV 09/22/24 10:45 Metoclopramide HCl 5 mg Q6HPRN PRN IV 09/22/24 10:45 09/22/24 20:10 5 MG Fluconazole 100 ml @ 100 mls/hr DAILY IV 09/23/24 10:00 09/24/24 09:39 100 MLS/HR Vancomycin HCl 150 ml @ 150 mls/hr Q15H IV 09/23/24 20:00 09/24/24 11:41 150 MLS/HR Cefepime HCl 50 ml @ 12.5 mls/hr Q12HR IV 09/23/24 22:00 09/24/24 09:39 12.5 MLS/HR Examination patient lying in bed, in no acute distress General: Over weight, afebrile, palor, mucosae are moist Cardiovascular: Regular S1 and S2. No murmurs, gallops or rubs. No JVD elevation. No pedal edema Respiratory: Normal B/L air entry on room air. Clear lung sounds on auscultation Abdomen: Soft, epigastric and suprapubic tenderness, resolving right costovertebral angle tenderness nondistended, normoactive bowel sounds, no rebound tenderness, no organomegaly, no masses. Stovall be seen with orange urine Genitourinary: Deferred MSK/skin: Mobilizes 4 limbs. Skin is dry and warm Neurological: No motor, no sensitive deficits, normal speech. Pupils are isocoric and reactive. Psych/Mental Status: A/Ox3 laboratory and microbiology Laboratory Tests 09/24/24 06:46 Test 09/24/24 06:46 Range/Units Serum Glucose 166 H 74-106 mg/dL Microbiology Date/Time Source Procedure Growth Status 09/23/24 13:25 Blood Blood Culture - Preliminary NO GROWTH AFTER 24 HOURS OF INCUBATION. Resulted 09/19/24 05:20 Nose MRSA Screen - Final Methicillin Resistant S.aureus Complete 09/18/24 17:53 Urine - Stovall Port Urine Culture - Final Presumptive Stacie albicans Complete Labs and/or images reviewed: Labs reviewed by me, Image(s) reviewed by me Problem List/Assessment/Plan Problem List/Assessment/Plan Sepsis due to complicated UTI: Pyelonephritis Staph bacteremia History of bilateral hydronephrosis and Emphysematous cystitis 2023 Gross Hematuria Bilateral hydronephrosis Procidentia complete total uterine prolapse Pelvic pain secondary to prolapse/atrophy MRSA nares IV ceftriaxone started 09/18 till 09/23 IV vancomycin started 09/18 Tramadol and IV morphine for pain control Stovall in place CT abdomen shows bilateral hydronephrosis. Requested medical records from other facility 09/19, reviewed 09/24 Repeated blood cultures 09/23 Discontinued IV cefepime 09/23 Chronic systolic heart failure Hyperlipidemia Hypertension Rule out infective endocarditis Ef 30% in 2023 Fluid restrictions and cardiac diet Home medication Entresto started 09/20 Home medication aspirin/atorvastatin/furosemide started 09/20 Holding on off Jardiance at this point. Started atorvastatin 40 mg daily 10 year cardiovascular event risk 25% Echocardiogram order to/242 rule out infective endocarditis Uterine prolapse Outpatient workup advised, Patient has OBGYN appointment 09/26 Uncontrolled type 2 diabetes mellitus hemoglobin A1c 9.2 Glucose goal 140-180 mg/dL GI prophylaxis pantoprazole 40 mg daily DVT prophylaxis SCDs, given the hematuria Goals of care discussed with the patient for more than 22 minutes, full code status Plan discussed with patient in which all questions have been answered Case discussed with Dr. Brennan. Pending echocardiogram. Repeat blood cultures coming back prelim negative. Plan discussed with: Patient Date of Service: Sep 24, 2024 Billing Provider: JOSE ALFREDO JARAMILLO MD Common Visit Codes: 12426-[id number] INP/OBS CARE(HIGH) ZION KIRKPATRICK RESIDENT Sep 24, 2024 16:02 JOSE ALFREDO JARAMILLO MD Sep 24, 2024 23:45
[2024-09-25] VITALS (7 sets, daily range): BP systolic 100–127; BP diastolic 53–71; PULSE 71–74; RESP 16–18; TEMP 98.1–98.7; O2SAT 93–98
--- NOTE | 2024-09-25 07:42 | DVHSR ---
APPROVED REPORT EXAM: Two-dimensional and M-mode echocardiogram with Doppler and color Doppler. Blood Pressure: 155/94 mmHg INDICATION MRSA bacteremia RISK FACTORS Height: 61, Weight: 147 DIMENSIONS LVDd3.9 (3.8-5.7cm)LA (2D)4.4 (1.9-4.0cm)Aortic Root3.3 (2.0-3.7cm) LVDs2.8 (2.5-4.0cm)LA (MM) (1.9-4.0cm)Aortic Cusp Exc1.8 (1.5-2.0cm) EF (%) 55.0 (55-70%)Rt. Atrium3.9 (1.9-4.0cm)Asc. Aorta cm Mitral Valve MitralMitral Stenosis E wave0.54m/sMV Mean GR.1mmHg A wave0.85m/sMV Peak GR.99mmHg E/A ratio0.62D MVAcm2 DECEL [id number] 1/2 [id number] IVRTmsDop MVA3.82cm2 Aortic Valve Aortic ValveAortic Stenosis V10.88m/Ta Mean GR.3mmHg V21.07m/Ta Peak GR.5mmHg LVOT Diameter1.9 (1.8-2.4cm)Doppler AVA2.33cm2 Pulmonic Valve V20.77m/s Tricuspid Valve TR Velocity1.95m/s [id number] Conclusion Technically good study. Sinus rhythm. Left atrial enlargement with concentric LVH. Mild aortic sclerosis. Mild mitral annular calcification. EF of 55-60% with normal RV function. Dopplers unremarkable. No pericardial effusion masses or vegetations discernible.
[2024-09-25 11:02] LABS: Chloride 100 mmol/L (98-107); Potassium 4.3 mmol/L (3.5-5.1)
[2024-09-25 11:03] LABS: Anion Gap 10 (5-15); Calcium 9.4 mg/dL (8.7-10.4); Carbon Dioxide 22 mmol/L (20-31)
[2024-09-25 11:08] LABS: BUN/Creatinine Ratio 15.5 (10.0-20.0); Blood Urea Nitrogen 20 mg/dL (9-23)
[2024-09-25 11:16] LABS: Glucose 242 mg/dL (74-106); Sodium 132 mmol/L (136-145)
--- NOTE | 2024-09-25 14:19 | DVHDSRES ---
Discharge Summary Date of Admission Resident Creating Document: ZION KIRKPATRICK RESIDENT Sep 18, 2024 at 21:01 Date of Discharge: Sep 25, 2024 Labs/Diagnostic Data: Laboratory Results Test 09/25/24 11:46 09/25/24 10:00 09/25/24 01:34 09/24/24 06:46 POC Glucose 238 mg/dl (70-106) Sodium Level 132 mmol/L (136-145) Potassium Level 4.3 mmol/L (3.5-5.1) Chloride Level 100 mmol/L (98-107) Carbon Dioxide Level 22 mmol/L (20-31) Anion Gap 10 (5-15) Blood Urea Nitrogen 20 mg/dL (9-23) Creatinine 1.29 mg/dL (0.550-1.02) Glomerular Filtration Rate Calc 45 mL/min (>90) BUN/Creatinine Ratio 15.5 (10.0-20.0) Serum Glucose 242 mg/dL (74-106) Calcium Level 9.4 mg/dL (8.7-10.4) Random Vancomycin Level 18.7 ug/mL (5-10) Vancomycin Level Trough 24.9 ug/mL (5-10) White Blood Count 8.6 10^3/uL (4.4-10.8) Red Blood Count 4.04 10^6/uL (4.0-5.20) Hemoglobin 12.5 g/dL (12.2-16.2) Hematocrit 36.7 % (36.0-46.0) Mean Corpuscular Volume 90.7 fL (80.0-100.0) Mean Corpuscular Hemoglobin 30.8 pg (28.0-32.0) Mean Corpuscular Hemoglobin Concent 33.9 g/dL (32.0-36.0) Red Cell Distribution Width 15.0 % (11.8-14.3) Platelet Count 351 10^3/uL (140-450) Mean Platelet Volume 7.1 fL (6.9-10.8) Neutrophils (%) (Auto) 75.3 % (37.0-80.0) Lymphocytes (%) (Auto) 14.9 % (10.0-50.0) Monocytes (%) (Auto) 7.0 % (0.0-12.0) Eosinophils (%) (Auto) 2.3 % (0.0-7.0) Basophils (%) (Auto) 0.5 % (0.0-2.0) Neutrophils # (Auto) 6.4 10 ^3/uL (1.6-8.6) Lymphocytes # (Auto) 1.3 10 ^3/uL (0.4-5.4) Monocytes # (Auto) 0.6 10 ^3/uL (0-1.3) Eosinophils # (Auto) 0.2 10 ^3/uL (0-0.8) Basophils # (Auto) 0 10 ^3/uL (0-0.2) Nucleated Red Blood Cells 0.1 % Test 09/20/24 05:13 09/19/24 03:30 09/18/24 17:53 09/18/24 14:08 Total Bilirubin 0.2 mg/dL (0.2-1.0) Aspartate Amino Transferase (AST) 16 U/L (13-40) Alanine Aminotransferase (ALT) 15 U/L (7-40) Alkaline Phosphatase 94 U/L (46-116) Total Protein 6.2 g/dL (5.7-8.2) Albumin 3.4 g/dL (3.2-4.8) Prothrombin Time 10.9 sec (9.3-11.8) Prothrombin Time INR 1.03 (0.9-1.15) Activated Partial Thromboplast Time 30.2 SEC (24.5-34.5) Hemoglobin A1c 9.4 % A1C (<5.7) Lactic Acid Level 0.6 mmol/L (0.4-2.0) Phosphorus Level 3.1 mg/dL (2.4-5.1) Magnesium Level 1.8 mg/dL (1.6-2.6) B-Type Natriuretic Peptide 427.90 pg/mL (0-100) Triglycerides Level 109 mg/dL (< 150) Cholesterol Level 89 mg/dL (< 200) LDL Cholesterol 46 mg/dL (< 100) HDL Cholesterol 26 mg/dL (40-59) Vitamin B12 Level 927 pg/mL (211-911) Vitamin D 25-Hydroxy 29.1 ng/mL (30.0-100) Thyroid Stimulating Hormone (TSH) 1.70 uIU/mL (0.55-4.78) Hepatitis B Surface Antigen Negative (Negative) Hepatitis B Surface Antibody Negative (Negative) Hepatitis C Antibody Reactive (Negative) Urine Color Light-yellow (Yellow) Urine Clarity Turbid (Clear) Urine pH 5.5 (5.0-9.0) Urine Specific [place] 1.022 (1.001-1.035) Urine Protein 1+ (Negative) Urine Ketones Negative (Negative) Urine Blood 3+ /uL (Negative) Urine Nitrite Negative (Negative) Urine Bilirubin Negative (Negative) Urine Urobilinogen Normal mg/dL (Negative) Urine Leukocyte Esterase 1+ /uL (Negative) Urine RBC 216 /hpf (0 - 4) Urine Microscopic WBC 77 /HPF (0-5) Urine Squamous Epithelial Cells Few /hpf (<5) Urine Bacteria None seen /hpf (None Seen) Urine Mucus Few (None Seen) Urine Yeast (Budding) Many /hpf (None Seen) Urine Glucose 4+ mg/dL (Normal) Erythrocyte Sedimentation Rate 78 mm/hr (0-20) C-Reactive Protein High Sensitivity 2.31 mg/dL (<1.0) Other Laboratory Tests 09/25/24 10:00 09/24/24 06:46 Brief Hx & Hospital Course: Mr. 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 He was recently hospitalized at [facility] for over a week where she received IV antibiotics/Mariano catheter for vaginal pain. She was discharge and she went to see her PCP, who noticed gross hematuria and Mariano catheter and send her to the ER. She left from the ER and came back 09/18. Reports sharp vaginal pain. Pain is burning in nature. She does not know why the Mariano was placed. She has OBGYN appointment next for uterine prolapse. Echocardiogram completed 07/2023 showed Severely dilated left ventricle. Severely reduced left ventricular systolic function with mid ejection fraction of 30%. There is a global left ventricular wall hypokinesia. There is a grade 1 diastolic dysfunction. Severely dilated right ventricle. Severely reduced right ventricular systolic function. Mildly increased right ventricular systolic pressure at 30 mmHg. The patient denies shortness of breath yellowish continuous nausea/vomiting chills/fever /diarrhea. Mariano draining dark orange urine. UA shows 3+ RBCs and blood. Renal ultrasound shows mild hydronephrosis. Urology consulted. Home meds: Aspirin, atorvastatin carvedilol empagliflozin furosemide insulin lisinopril metformin During the hospitalization, patient was initially started on IV ceftriaxone which was later switched to IV vancomycin starting 09/19 given MRSA bacteremia and MRSA nares. CT abdomen completed, shows Bladder prolapse. There is a small to moderate amount of gas within the bladder, which may be seen with recent mariano catheter placement or other intervention. Infectious etiology not excluded. Correlate with clinical findings. Moderate bilateral hydronephrosis no obstructing calculus visualized. Similar findings are seen in the prior CT. Urology was consulted, recommended continuing with Mariano catheter. Reports were obtained from [facility], patient was diagnosed with sepsis and cystitis MRSA nares, C diff colitis was discharged on ciprofloxacin and vancomycin p.o.. OBGYN was consulted - recommended outpatient follow up for elective hysterectomy. No urgent intervention needed. We hold off on Jardiance at this point. Repeat blood cultures were ordered which were negative. Given the MRSA bacteremia, echocardiogram was completed which ruled out infective endocarditis. Repeat blood cultures 09/23 were also negative. 09/25-patient is hemodynamically stable, vitally stable and therefore is being discharged home with the following instructions Tablets Zyvox 600 mg b.i.d. 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 Hematuria ORDER NUMBER(s): [id number], ACCESSION NUMBER(s): [id number] CLINICAL INFORMATION: 69 years old, Female; hematuria. Rule out nephrolithiasis. TECHNIQUE: Axial CT images of the abdomen and pelvis were obtained without IV contrast. Coronal and sagittal reformatted images were obtained, reviewed, and stored. Evaluation of the parenchymal organs is limited without IV contrast. Evaluation of the bowel and mesentery is limited without oral contrast. All CT scans at this medical facility are performed using dose modulation techniques as appropriate to a performed exam including the following: Automated exposure control was utilized; adjustment of the MA and/or KV according to patient size; and use of iterative reconstruction technique. CTDIvol = 9.54 mGy DLP = 453.5 mGy-cm COMPARISON: CT CT AB PEL WO CON-NO ORAL OR IV on DOS: 09/23/23 FINDINGS: Lung bases: Small bilateral pleural effusions with overlying mild compressive atelectasis. Moderate hiatal hernia. Liver: Grossly unremarkable in its noncontrast enhanced appearance. No abnormal density or focal lesion identified. Biliary: No calcified gallstones or biliary ductal dilatation. Spleen: Unremarkable. Pancreas: Grossly unremarkable in its noncontrast enhanced appearance. Adrenal glands: Unremarkable. No mass. Kidneys: Moderate bilateral hydronephrosis with no obstructing calculi visualized. Similar findings are seen on the prior CT. Aorta/Vascular: Moderate atherosclerotic calcification. No abdominal aortic aneurysm. Retroperitoneum: No mass or lymphadenopathy. Bowel/mesentery: No small bowel obstruction. Appendix is not visualized. Moderate to large amount of stool throughout the colon. Pelvic organs: Grossly unremarkable. Bladder: There is partially visualized bladder prolapse. There is gas within the bladder. Abdominal wall: Mild diffuse body wall edema. Bones: Grade 1 anterolisthesis of L4 on L5. No acute fracture or suspicious intraosseous lesion. IMPRESSION: 1. Bladder prolapse. There is a small to moderate amount of gas within the bladder, which may be seen with recent mariano catheter placement or other intervention. Infectious etiology not excluded. Correlate with clinical findings. 2. Moderate bilateral hydronephrosis no obstructing calculus visualized. Similar findings are seen in the prior CT. 3. Moderate to large amount of stool throughout the colon. 4. Small bilateral pleural effusions. 5. Moderate hiatal hernia. 6. Additional findings as described above. ATED BY: PARAG PIMENTEL DO DICTATED DATE/TIME: 09/19/247 SIGNED BY: PARAG PIMENTEL DO SIGNED DATE/TIME: 09/19/24 1157 CC: ORDERING PHYSICIAN: ZION KIRKPATRICK RESIDENT PROCEDURE(s): ABPL - CT AB PEL WO CON-NO ORAL OR IV REASON: R/o nephrolithiasis. Hematuria ORDER NUMBER(s): [id number], ACCESSION NUMBER(s): [id number] CLINICAL INFORMATION: 69 years old, Female; hematuria. Rule out nephrolithiasis. TECHNIQUE: Axial CT images of the abdomen and pelvis were obtained without IV contrast. Coronal and sagittal reformatted images were obtained, reviewed, and stored. Evaluation of the parenchymal organs is limited without IV contrast. Evaluation of the bowel and mesentery is limited without oral contrast. All CT scans at this medical facility are performed using dose modulation techniques as appropriate to a performed exam including the following: Automated exposure control was utilized; adjustment of the MA and/or KV according to patient size; and use of iterative reconstruction technique. CTDIvol = 9.54 mGy DLP = 453.5 mGy-cm COMPARISON: CT CT AB PEL WO CON-NO ORAL OR IV on DOS: 09/23/23 FINDINGS: Lung bases: Small bilateral pleural effusions with overlying mild compressive atelectasis. Moderate hiatal hernia. Liver: Grossly unremarkable in its noncontrast enhanced appearance. No abnormal density or focal lesion identified. Biliary: No calcified gallstones or biliary ductal dilatation. Spleen: Unremarkable. Pancreas: Grossly unremarkable in its noncontrast enhanced appearance. Adrenal glands: Unremarkable. No mass. Kidneys: Moderate bilateral hydronephrosis with no obstructing calculi visualized. Similar findings are seen on the prior CT. Aorta/Vascular: Moderate atherosclerotic calcification. No abdominal aortic aneurysm. Retroperitoneum: No mass or lymphadenopathy. Bowel/mesentery: No small bowel obstruction. Appendix is not visualized. Moderate to large amount of stool throughout the colon. Pelvic organs: Grossly unremarkable. Bladder: There is partially visualized bladder prolapse. There is gas within the bladder. Abdominal wall: Mild diffuse body wall edema. Bones: Grade 1 anterolisthesis of L4 on L5. No acute fracture or suspicious intraosseous lesion. IMPRESSION: 1. Bladder prolapse. There is a small to moderate amount of gas within the bladder, which may be seen with recent mariano catheter placement or other intervention. Infectious etiology not excluded. Correlate with clinical findings. 2. Moderate bilateral hydronephrosis no obstructing calculus visualized. Similar findings are seen in the prior CT. 3. Moderate to large amount of stool throughout the colon. 4. Small bilateral pleural effusions. 5. Moderate hiatal hernia. 6. Additional findings as described above. 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 Chronic kidney disease stage 3 Procidentia complete total uterine prolapse Pelvic pain secondary to prolapse/atrophy Chronic systolic heart failure Hyperlipidemia Hypertension Ruled out infective endocarditis Moderate hiatal hernia Discharge Disposition: Home Discharge Instruct/Medications Diet: Cardiac 2g Na,low cholest Activity: No Restrictions, As Tolerated Follow Up/Referral: Follow up with OBGYN as outpatient within 7 days Follow up with primary care physician as outpatient within 7 days Follow up with Urology as outpatient within 7 days to change Mariano every 30 days Medications: Tablets Zyvox 600 mg twice daily for the next 10 days Discharge Statement: "Patient was advised to return to the ER or call 911 if any headaches, dizziness, shortness of breath, chest pain, abdominal pain, bleeding, fevers, or worsening of medical condition. Patient was counseled about treatment plan, medications, possible side effects, patientverbalized understanding. All questions were answered to the best of my ability. This discharge took greater then 30 minutes in planning, reviewing documentation, counseling the patient, and discussing with other team members." ASSESSMENT ASSESSMENT Assessment Sepsis due to complicated UTI: Pyelonephritis Staph bacteremia History of bilateral hydronephrosis and Emphysematous cystitis 2023 Gross Hematuria Bilateral hydronephrosis Procidentia complete total uterine prolapse Pelvic pain secondary to prolapse/atrophy Chronic systolic heart failure Hyperlipidemia Hypertension Ruled out infective endocarditis ZION KIRKPATRICK RESIDENT Sep 25, 2024 14:19
== END 2024-09-25 16:48 | disposition home or self-care (01) | DRG 871 ==
LOC: ER 13:00 → OVERFLOW 21:01 → WEST WING 21:09 → CENTRAL 09-19 19:55
PROVIDERS: ADMIT Student in an Organized Health Care Education/Training Program; ATTEND Emergency Medicine
PROC: 05HB33Z Insertion of Infusion Device into Right Basilic Vein, Percutaneous Approach (ICD-10-PCS; principal; 2024-09-23)
PROC: B54MZZA Ultrasonography of Right Upper Extremity Veins, Guidance (ICD-10-PCS; 2024-09-23)
DX: A41.9 Sepsis, unspecified organism (principal); N17.0 Acute kidney failure with tubular necrosis; I13.0 Hypertensive heart and chronic kidney disease with heart failure and stage 1 through stage 4 chronic kidney disease, or unspecified chronic kidney disease; I50.22 Chronic systolic (congestive) heart failure; N13.6 Pyonephrosis; N18.9 Chronic kidney disease, unspecified; J44.9 Chronic obstructive pulmonary disease, unspecified; K44.9 Diaphragmatic hernia without obstruction or gangrene; R31.0 Gross hematuria; E11.22 Type 2 diabetes mellitus with diabetic chronic kidney disease; E78.5 Hyperlipidemia, unspecified; N81.3 Complete uterovaginal prolapse; Z88.6 Allergy status to analgesic agent; Z79.82 Long term (current) use of aspirin; Z79.899 Other long term (current) drug therapy; Z79.4 Long term (current) use of insulin; Z87.891 Personal history of nicotine dependence; Z90.49 Acquired absence of other specified parts of digestive tract; Z22.322 Carrier or suspected carrier of Methicillin resistant Staphylococcus aureus; Z85.05 Personal history of malignant neoplasm of liver; Z79.84 Long term (current) use of oral hypoglycemic drugs
CPT/HCPCS: 36415; 71045; 74176; 76775; 80048; 80053; 80061; 80202; 81001; 82306; 82565; 82607; 82962; 83036; 83605; 83735; 83880; 84100; 84443; 85025; 85610; 85652; 85730; 86141; 86706; 86803; 87040; 87077; 87081; 87086; 87088; 87186; 87340; 93005; 93306; 96360; G0378; J0692; J1450; J1815; J1885; J2405; J2470

== ENCOUNTER → 2024-09-26 | Outpatient (CLI) | payer MEDICARE, MEDICAID ==
[~2024-09-26] MED LIST changes: -EMPA1TAB PO; +LINE1TAB6 PO; -LISI20TA56 PO; -METH4TAB44 PO; +SACU1TAB4 PO
[2024-09-26 12:09] LABS: Chloride 99 mmol/L (98-107); Potassium 4.4 mmol/L (3.5-5.1)
[2024-09-26 12:10] LABS: Anion Gap 10 (5-15); Carbon Dioxide 24 mmol/L (20-31)
[2024-09-26 12:11] LABS: Calcium 9.8 mg/dL (8.7-10.4)
[2024-09-26 12:13] LABS: Sodium 133 mmol/L (136-145)
[2024-09-26 12:17] LABS: Blood Urea Nitrogen 37 mg/dL (9-23); Glucose 253 mg/dL (74-106)
== END | disposition home or self-care (01) ==
LOC: LAB 11:20
PROVIDERS: ATTEND Urology
DX: N81.10 Cystocele, unspecified (principal)
CPT/HCPCS: 36415; 80048

== ENCOUNTER → 2025-01-03 | Outpatient (CLI) | payer MEDICARE, MEDICAID ==
[2025-01-03 12:52] LABS: Urine Bacteria None Seen /hpf (None Seen)
[2025-01-03 13:00] LABS: Basophils # (auto) 0 10 ^3/uL (0-0.2); Basophils % (auto) 0.5 % (0.0-2.0); Eosinophils # (auto) 0.2 10 ^3/uL (0-0.8); Eosinophils % (auto) 1.9 % (0.0-7.0); Hematocrit 31.4 % (36.0-46.0); Hemoglobin 10.4 g/dL (12.2-16.2); Lymphocytes # (auto) 1.3 10 ^3/uL (0.4-5.4); Lymphocytes % (auto) 16.4 % (10.0-50.0); Mean Corpuscular Hemoglobin 28.3 pg (28.0-32.0); Mean Corpuscular Volume 85.6 fL (80.0-100.0); Monocytes # (auto) 0.7 10 ^3/uL (0-1.3); Monocytes % (auto) 8.5 % (0.0-12.0); Neutrophils # (auto) 5.9 10 ^3/uL (1.6-8.6); Neutrophils % (auto) 72.7 % (37.0-80.0); Nucleated Red Blood Cells % 0.1 %; Platelet Count (auto) 313 10^3/uL (140-450); Red Blood Cells 3.67 10^6/uL (4.0-5.20); Red Cell Distribution Width 15.4 % (11.8-14.3); White Blood Cell 8.1 10^3/uL (4.4-10.8)
[2025-01-03 13:08] LABS: Urine Blood Negative /uL (Negative); Urine Budding Yeast MANY /hpf (None Seen); Urine Clarity Clear (Clear); Urine Color Light-Yellow (Yellow); Urine Protein, UAD Negative (Negative); Urine Specific Gravity 1.023 (1.001-1.035); Urine Squamous Epithelial Cell FEW /hpf (<5); Urine Urobilinogen Normal (Negative); Urine WBC 19 /HPF (0-5)
[2025-01-03 13:25] LABS: Alanine Aminotransferase 24 U/L (7-40); Albumin 3.7 g/dL (3.2-4.8); Anion Gap 6 (5-15); Aspartate Aminotransferase 15 U/L (13-40); BUN/Creatinine Ratio 26.2 (10.0-20.0); Calcium 9.3 mg/dL (8.7-10.4); Carbon Dioxide 23 mmol/L (20-31); Chloride 107 mmol/L (98-107); Cholesterol 72 mg/dL (< 200); LDL Cholesterol 30 mg/dL (< 100); Potassium 4.7 mmol/L (3.5-5.1); Sodium 136 mmol/L (136-145); Total Protein 7.7 g/dL (5.7-8.2); Triglycerides 118 mg/dL (< 150)
[2025-01-03 13:27] LABS: Alkaline Phosphatase 190 U/L (46-116); Bilirubin, Total 0.3 mg/dL (0.2-1.0); Blood Urea Nitrogen 28 mg/dL (9-23); Creatinine, Urine 35.77 mg/dL (30.0-125.0); Glucose 194 mg/dL (74-106); HDL Cholesterol 22 mg/dL (40-59)
== END | disposition home or self-care (01) ==
LOC: LAB 12:27
PROVIDERS: ATTEND Internal Medicine
DX: I13.0 Hypertensive heart and chronic kidney disease with heart failure and stage 1 through stage 4 chronic kidney disease, or unspecified chronic kidney disease (principal); E11.22 Type 2 diabetes mellitus with diabetic chronic kidney disease; N18.2 Chronic kidney disease, stage 2 (mild); I50.9 Heart failure, unspecified; Z00.01 Encounter for general adult medical examination with abnormal findings
CPT/HCPCS: 36415; 80053; 80061; 81001; 82043; 82570; 83036; 84439; 84443; 85025

== ENCOUNTER 2025-03-19 14:27 | Inpatient (IN) | payer MEDICARE, MEDICAID ==
[~2025-03-19] VITALS: Ht 154.9 cm; Wt 63.1 kg
--- NOTE | 2025-03-19 15:48 | ED.PDOC ---
Eye-HPI HPI Comments This is a 69 year old female presenting to the ED with chief complaint of right eye redness and skin infections. Patient reports that she has been experiencing redness and swelling to her right eye for the past 2 weeks along with bruising and discoloration to her bilateral arms and legs for the past month. Patient relays that she was seen by her PCP today and was advised to come to the ED for further evaluation as she may have cellulitis to her extremities and an eye infection. Patient denies any fever, chills, SOB, chest pain, numbness, weakness, or vision loss. Chief Complaint: Eye Problem Time Seen by MD: 15:46 Primary Care Provider: UNKNOWN Reviewed Notes: Nurses Notes, Medications, Allergies Allergies: Coded Allergies: Acetaminophen (Verified Allergy, Severe, Hives, 08/09/23) Home Meds Active Scripts Linezolid (Zyvox) 600 Mg Tab, 600 MG PO BID for 10 Days, #20 TAB 0 Refills Prov:ZION KIRKPATRICK RESIDENT 09/24/24 Reported Medications Sacubitril-Valsartan (Entresto 97-103 mg) 1 Tab Tab, 1 TAB PO BID, TAB 09/19/24 Multiple Vitamins W/ Minerals (Centrum Multivitamin Flav) 1 Pow Pow, 1 POW PO DAILY, POW 04/23/24 Aspirin (Aspir-81) 81 Mg Tab, 81 MG PO DAILY, TAB 04/23/24 Atorvastatin Calcium (Lipitor) 40 Mg Tab, 40 MG PO DAILY, TAB 04/23/24 Metformin Hydrochloride (Metformin Hcl) 500 Mg Tab, 1 TAB PO BID for DIABETES 12/20/23 Furosemide (Lasix) 40 Mg Tab, 1 TAB PO DAILY for CHF 12/20/23 Insulin Regular (Human) (Humulin R) 100 Unit/Ml Inj, UNIT SC ACHS for PER SLIDING SCALE 12/18/23 Carvedilol (COREG) 12.5 Mg Tab, 1 TAB PO BID for HYPERTENSION 12/18/23 Information Source: Patient Mode of Arrival: Ambulatory Timing: Weeks Prehospital treatment: None Quality: Pain, Red Eye Location: Right Lids: Swelling Conjunctiva: Injection, Swelling Past Medical History PAST MEDICAL HISTORY: DM, HTN Surgical History: Denies all surgeries INSIDE B2B SALES History: No Pertinent INSIDE B2B SALES History Family History Family History: Reviewed,noncontributory to illness, No family hx of Cancer, No family hx of DM, No family hx of Heart kane, No family hx of HTN, No family hx ofKidney kane, No family hx of Liver kane, No family hx of Lung kane, No family hx of Stroke Social History Smoker: Non-Smoker Alcohol: Denies ETOH Use Drugs: Denies Drug Use Lives In: Home Constitutional: denies: chills, diaphoresis, fatigue, fever, malaise, sweats, weakness, others EENTM: reports: eye pain, eye redness; denies: blurred vision, double vision, ear bleeding, ear discharge, ear drainage, ear pain, ear ringing, hearing loss, mouth pain, mouth swelling, nasal discharge, nose bleeding, nose congestion, nose pain, photophobia, tearing, throat pain, throat swelling, voice changes, others Respiratory: denies: cough, hemoptysis, orthopnea, SOB at rest, shortness of breath, SOB with excertion, stridor, wheezing, others Cardiovascular: denies: chest pain, dizzy spells, diaphoresis, Dyspnea on exertion, edema, irregular heart beat, left arm pain, lightheadedness, palpitations, PND, syncope, others Gastrointestinal: denies: abdomen distended, abdominal pain, blood streaked bowels, constipated, diarrhea, dysphagia, difficulty swallowing, hematemesis, melena, nausea, poor appetite, poor fluid intake, rectal bleeding, rectal pain, vomiting, others Genitourinary: denies: abnormal vagina bleeding, burning, dyspareunia, dysuria, flank pain, frequency, hematuria, incontinence, pain, , vagina discharge, urgency, others Neurological: denies: dizziness, fainting, headache, left sided numbness, left sided weakness, numbness, paresthesia, pre-existing deficit, right sided numbness, right sided weakness, seizure, speech problems, tingling, tremors, weakness, others Musculoskeletal: denies: back pain, gout, joint pain, joint swelling, muscle pain, muscle stiffness, neck pain, others Integumetry: reports: bruises, lesions; denies: change in color, change in hair/nails, dryness, laceration, lumps, rash, wounds, others Allergic/Immunocompromised: denies: Difficulty Healing, Frequent Infections, Hives, Itching, others Hematologic/Lymphatic: denies: anemia, blood clots, easy bleeding, easy bruising, swollen glands, others Endocrine: denies: excessive hunger, excessive sweating, excessive thirst, excessive urination, flushing, intolerance to cold, intolerance to heat, unexplained weight gain, unexplained weight loss, others Psychiatric: denies: anxiety, bipolar disorder, depression, hopeless, panic disorder, schizophrenia, sleepless, suicidal, others All Other Systems: Reviewed and Negative Physical Exam General Appearance: No Apparent Distress, Normal HEENT: Pharynx Normal, TMs Normal, Other (Right conjunctival injection and swelling) Neck: Full Range of Motion, Non-Tender, Normal, Normal Inspection Respiratory: Chest Non-Tender, Lungs Clear, No Accessory Muscle Use, No Res piratory Distress, Normal Breath Sounds Cardiovascular: No Edema, No JVD, No Murmur, No Gallop, Normal Peripheral Pulses, Regular Rate/Rhythm Breast Exam: Deferred Gastrointestinal: No Organomegaly, Non Tender, No Pulsatile Mass, Normal Bowel Sounds, Soft Genitalia: Deferred Pelvic: Deferred Rectal: Deferred Extremities: No calf tenderness, Normal capillary refill, Normal inspection, Normal range of motion, Non-tender, No pedal edema Musculoskeletal : Apperance: Normal Neurologic: Alert, ledger poster II-XII nml as Tested, No Motor Deficits, Normal Affect, Normal Mood, No Sensory Deficits Cerebellar Function: Normal Reflexes: Normal Skin: Dry, Warm, Other (Hyperpigmentation and erythematous lesion noted to the bilateral deltoid region.) Lymphatic: No Adenopathy Was a procedure done? Was a procedure done?: No EENT DIFF Eye: Conjunctivitis Other Differential Diagnosis Cellulitis X-Ray, Labs, Meds, VS Vital Signs Date Time Temp Pulse Resp B/P (MAP) Pulse Ox O2 Delivery O2 Flow Rate FiO2 03/19/25 14:29 98.1 95 18 125/69 98 98.1 Lab Test 03/19/25 16:11 Range/Units White Blood Count 13.5 H 4.4-10.8 10^3/uL Red Blood Count 4.71 4.0-5.20 10^6/uL Hemoglobin 11.3 L 12.2-16.2 g/dL Hematocrit 36.7 36.0-46.0 % Mean Corpuscular Volume 77.8 L 80.0-100.0 fL Mean Corpuscular Hemoglobin 24.0 L 28.0-32.0 pg Mean Corpuscular Hemoglobin Concent 30.9 L 32.0-36.0 g/dL Red Cell Distribution Width 16.4 H 11.8-14.3 % Platelet Count 395 140-450 10^3/uL Mean Platelet Volume 7.3 6.9-10.8 fL Neutrophils (%) (Auto) 85.6 H 37.0-80.0 % Lymphocytes (%) (Auto) 7.9 L 10.0-50.0 % Monocytes (%) (Auto) 5.6 0.0-12.0 % Eosinophils (%) (Auto) 0.6 0.0-7.0 % Basophils (%) (Auto) 0.3 0.0-2.0 % Neutrophils # (Auto) 11.6 H 1.6-8.6 10 ^3/uL Lymphocytes # (Auto) 1.1 0.4-5.4 10 ^3/uL Monocytes # (Auto) 0.8 0-1.3 10 ^3/uL Eosinophils # (Auto) 0.1 0-0.8 10 ^3/uL Basophils # (Auto) 0 0-0.2 10 ^3/uL Nucleated Red Blood Cells 0.0 % Sodium Level 137 136-145 mmol/L Potassium Level 4.5 3.5-5.1 mmol/L Chloride Level 103 98-107 mmol/L Carbon Dioxide Level 25 20-31 mmol/L Anion Gap 9 5-15 Blood Urea Nitrogen 19 9-23 mg/dL Creatinine 1.19 H 0.550-1.02 mg/dL Glomerular Filtration Rate Calc 49 >90 mL/min BUN/Creatinine Ratio 16.0 10.0-20.0 Serum Glucose 77 74-106 mg/dL Calcium Level 8.8 8.7-10.4 mg/dL X-Ray, Labs, Meds, VS Comment Patient will be admitted for cellulitis to bilateral upper extremities, and sinusitis/rule out malignancy Patient be started on Ancef Labs reviewed by this provider Vital signs reviewed by this provider Time of 1ST Reevaluation: 16:44 Reevaluation 1ST: Unchanged Patient Education/Counseling: Diagnosis, Treatment Family Education/Counseling: No Family Present SEPSIS Sepsis Screen Date sepsis recognized/suspect: Mar 19, 2025 Time Sepsis recognized/suspect: 1431 Recent Procedure: No On Antibiotic Therapy: No Respiratory Rate >20: No Heart Rate >90: Yes Temp<36 C (96.8 F) or >38.3 C: No SBP <90 or MAP <65 mmHG: No New Acute Mental Status Change: No Is the patient on CPAP, BIPAP,: No Physician Orders Orbits Wo Contrast (03/19/25 15:44) Urinalysis (03/19/25 15:44) Vital Signs Date Time Temp Pulse Resp B/P (MAP) Pulse Ox O2 Delivery O2 Flow Rate FiO2 03/19/25 14:29 98.1 95 18 125/69 98 98.1 Laboratory Tests Test 03/19/25 16:11 White Blood Count 13.5 10^3/uL (4.4-10.8) H Departure 1 Departure Time of Disposition: 17:31 Impression: Primary Impression: Conjunctivitis Qualified Codes: H10.31 - Unspecified acute conjunctivitis, right eye Additional Impressions: Sinusitis Qualified Codes: J01.00 - Acute maxillary sinusitis, unspecified Cellulitis Qualified Codes: L03.119 - Cellulitis of unspecified part of limb Disposition: ADMITTED INPATIENT Condition: Stable Critical Care Note Critical Care Time?: No Stability Stability form required: No Heart Score Heart Score: Heart Score Response (Comments) Value History N/A 0 EKG N/A 0 Age N/A 0 Risk Factors N/A 0 Troponin N/A 0 Total 0 I personally scribed for MARGOTH SEYMOUR ([email or web address]) on 03/19/25 at 15:48. Electronically submitted by Denzel Mendoza ([email or web address]). MARGOTH SEYMOUR Mar 19, 2025 15:48
--- NOTE | 2025-03-19 16:25 | DVH ---
HISTORY: eye swelling TECHNIQUE: Nonenhanced axial images through the facial bones with coronal and sagittal MPR. Radiation Dose Information: CT Dose: CTDI volume is 63 mGy. Dose-length product is 711 mGy*cm COMPARISON: None FINDINGS: Soft tissue density mass centered upon the left maxillary sinus extending into the left nasal cavity. There is mucosal thickening in the left ethmoid sinus. The left globe is intact. No swelling of the extra-ocular muscle or lacrimal gland. IMPRESSION: 1. Polyp versus tumor centered upon the left maxillary sinus and left nasal cavity with secondary thi ckening of the left ethmoid sinus air cells and inferior left frontal sinus air cells 2. While there is no obvious intra ocular pathology, may consider MRI to look for involvement at the orbital apex or cavernous sinuses Radiation optimization: All CT scans at this facility use at least one of these dose optimization isabelle hniques: automated exposure control mA and/or kV adjustment per patient size (includes targeted exam s where dose is matched to clinical indication) or iterative reconstruction.
[2025-03-19 16:27] LABS: Hematocrit 36.7 % (36.0-46.0); Hemoglobin 11.3 g/dL (12.2-16.2); Mean Corpuscular Hemoglobin 24.0 pg (28.0-32.0); Mean Corpuscular Volume 77.8 fL (80.0-100.0); Nucleated Red Blood Cells % 0.0 %
[2025-03-19 16:36] LABS: Chloride 103 mmol/L (98-107); Potassium 4.5 mmol/L (3.5-5.1); Sodium 137 mmol/L (136-145)
[2025-03-19 16:37] LABS: Anion Gap 9 (5-15); Carbon Dioxide 25 mmol/L (20-31)
[2025-03-19 16:38] LABS: Calcium 8.8 mg/dL (8.7-10.4)
[2025-03-19 16:43] LABS: BUN/Creatinine Ratio 16.0 (10.0-20.0); Blood Urea Nitrogen 19 mg/dL (9-23); Glucose 77 mg/dL (74-106)
[2025-03-19] MEDS ORDERED: DEXTROSE (50%) 50ML SYRG IV PRN (23:30)
[2025-03-20] VITALS (7 sets, daily range): BP systolic 145–178; BP diastolic 70–97; PULSE 76–96; RESP 17–18; TEMP 97.7–98.9; O2SAT 96–98
[2025-03-20] MEDS: CIPROFLOXACIN 0.3%OPTH(EYE) SOL 5ML RIGHTEYE SCH (01:20)
--- NOTE | 2025-03-20 01:25 | DVHHP2 ---
History of Present Illness Reason for Visit: Right eye redness History of Present Illness 69-year-old female presents for evaluation of right eye redness. Patient was seen by her primary care provider and advised to present to the emergency department for further evaluation. She reports having redness to her right eye over the past two weeks with pain and burning sensation. Denies blurred vision or headache. Patient also noted to have bruising/discoloration to bilateral upper arms. Patient relates self injecting drugs one-week ago. Past Medical History CHF, hypertension, diabetes mellitus Past Surgical History Denies Family History Noncontributory Smoke: No ALCOHOL: none Drugs: None Review of Systems Review of Systems Review of systems are currently negative otherwise addressed in HPI. Allergies: Coded Allergies: Acetaminophen (Verified Allergy, Severe, Hives, 08/09/23) Medications Current Medications Medications Dose Ordered Sig/Natalie Route Start Time Stop Time Status Last Admin Dose Admin Ciprofloxacin HCl 1 drop Q4HR RIGHTEYE 03/20/25 02:00 03/20/25 01:20 1 DROP Levofloxacin/ Dextrose 100 ml @ 100 mls/hr DAILY IV 03/20/25 10:00 UNV Atorvastatin Calcium 40 mg HS PO 03/20/25 22:00 Carvedilol 12.5 mg Q12HR PO 03/20/25 10:00 Sacubitril/ Valsartan 1 tab BID PO 03/20/25 10:00 Furosemide 40 mg DAILY PO 03/20/25 10:00 Diagnostic Test (Pha) 1 strip ACHS 03/20/25 07:00 Insulin Human Regular ACHS SC 03/20/25 07:00 Dextrose 50 ml UD PRN IV 03/19/25 23:30 Ondansetron HCl 4 mg Q4HP PRN IV 03/19/25 23:30 Exam Vital Signs Vital Signs Date Time Temp Pulse Resp B/P (MAP) Pulse Ox O2 Delivery O2 Flow Rate FiO2 03/20/25 00:50 98.7 92 18 155/70 (98) 97 98.7 03/19/25 18:25 Room Air Exam Gen: 69-year-old female in mild distress Skin: Warm, dry, normal color and texture, no rash. HEENT: Normocephalic atraumatic, right eye redness Neck: Cervical and supraclavicular nodes normal without enlargement, trachea is midline, thyroid gland is normal without masses. Pulmonary: Clear to auscultation and percussion bilaterally. Cardiac: Regular rate and rhythm. No murmur Abdomen: Soft, nontender, nondistended, bowel sounds present all 4 quadrants, no guarding, no rigidity, no organomegaly. Extremities: No cyanosis, clubbing, no edema Neuro: Cranial nerves II through XII grossly intact, normal affect and speech, no focal motor deficits. Labs/Xrays ORDERING PHYSICIAN: MARGOTH SEYMOUR PROCEDURE(s): OB1CT - ORBITS WO CONTRAST REASON: eye swelling ORDER NUMBER(s): [id number], ACCESSION NUMBER(s): [id number] HISTORY: eye swelling TECHNIQUE: Nonenhanced axial images through the facial bones with coronal and sagittal MPR. Radiation Dose Information: CT Dose: CTDI volume is 63 mGy. Dose-length product is 711 mGy*cm COMPARISON: None FINDINGS: Soft tissue density mass centered upon the left maxillary sinus extending into the left nasal cavity. There is mucosal thickening in the left ethmoid sinus. The left globe is intact. No swelling of the extra-ocular muscle or lacrimal gland. IMPRESSION: 1. Polyp versus tumor centered upon the left maxillary sinus and left nasal cavity with secondary thickening of the left ethmoid sinus air cells and inferior left frontal sinus air cells 2. While there is no obvious intra ocular pathology, may consider MRI to look for involvement at the orbital apex or cavernous sinuses Radiation optimization: All CT scans at this facility use at least one of these dose optimization techniques: automated exposure control mA and/or kV adjustment per patient size (includes targeted exams where dose is matched to clinical indication) or iterative reconstruction. Labs Test 03/19/25 16:11 Range/Units White Blood Count 13.5 H 4.4-10.8 10^3/uL Red Blood Count 4.71 4.0-5.20 10^6/uL Hemoglobin 11.3 L 12.2-16.2 g/dL Hematocrit 36.7 36.0-46.0 % Mean Corpuscular Volume 77.8 L 80.0-100.0 fL Mean Corpuscular Hemoglobin 24.0 L 28.0-32.0 pg Mean Corpuscular Hemoglobin Concent 30.9 L 32.0-36.0 g/dL Red Cell Distribution Width 16.4 H 11.8-14.3 % Platelet Count 395 140-450 10^3/uL Mean Platelet Volume 7.3 6.9-10.8 fL Neutrophils (%) (Auto) 85.6 H 37.0-80.0 % Lymphocytes (%) (Auto) 7.9 L 10.0-50.0 % Monocytes (%) (Auto) 5.6 0.0-12.0 % Eosinophils (%) (Auto) 0.6 0.0-7.0 % Basophils (%) (Auto) 0.3 0.0-2.0 % Neutrophils # (Auto) 11.6 H 1.6-8.6 10 ^3/uL Lymphocytes # (Auto) 1.1 0.4-5.4 10 ^3/uL Monocytes # (Auto) 0.8 0-1.3 10 ^3/uL Eosinophils # (Auto) 0.1 0-0.8 10 ^3/uL Basophils # (Auto) 0 0-0.2 10 ^3/uL Nucleated Red Blood Cells 0.0 % Sodium Level 137 136-145 mmol/L Potassium Level 4.5 3.5-5.1 mmol/L Chloride Level 103 98-107 mmol/L Carbon Dioxide Level 25 20-31 mmol/L Anion Gap 9 5-15 Blood Urea Nitrogen 19 9-23 mg/dL Creatinine 1.19 H 0.550-1.02 mg/dL Glomerular Filtration Rate Calc 49 >90 mL/min BUN/Creatinine Ratio 16.0 10.0-20.0 Serum Glucose 77 74-106 mg/dL Calcium Level 8.8 8.7-10.4 mg/dL SEPSIS Sepsis Screen Date sepsis recognized/suspect: Mar 19, 2025 Time Sepsis recognized/suspect: 1825 Recent Procedure: No On Antibiotic Therapy: No Respiratory Rate >20: No Heart Rate >90: No Temp<36 C (96.8 F) or >38.3 C: No SBP <90 or MAP <65 mmHG: No New Acute Mental Status Change: No Is the patient on CPAP, BIPAP,: No Physician Orders Ciprofloxacin 0.3% Opthalmic (Cipro Opth (03/20/25 02:00) Levofloxacin 500mg (Levaquin 500mg/ 100m (03/20/25 10:00) Atorvastatin (Lipitor) (03/20/25 22:00) Carvedilol Tablet (Coreg Tablet) (03/20/25 10:00) Sacubitril-Valsartan (Entresto 24-26 Mg (03/20/25 10:00) Furosemide Tablet (Lasix Tablet) (03/20/25 10:00) Basic Metabolic Panel (03/20/25 04:00) Glucose Blood (Accu-Chek Comfort Curve T (03/20/25 07:00) Insulin R (Human) (Insulin R) (03/20/25 07:00) Dextrose 50% Syringe (03/19/25 23:30) Admit (03/19/25 23:27) Ondansetron Hcl (Zofran) (03/19/25 23:30) Complete Blood Count (03/20/25 04:00) Cardiac Diet-2gna,Lofat,Lochol (03/20/25 Breakfast) Condition: Stable (03/19/25 23:27) Bedrest With Bathroom Privileg (03/19/25 23:27) Drug Screen (03/19/25 23:27) Mrsa Screen (03/20/25 00:18) Vital Signs Date Time Temp Pulse Resp B/P (MAP) Pulse Ox O2 Delivery O2 Flow Rate FiO2 03/20/25 00:50 98.7 92 18 155/70 (98) 97 98.7 03/19/25 23:13 98.2 100 16 151/96 (114) 100 98.2 03/19/25 20:57 98.1 98 16 143/85 (104) 99 98.1 03/19/25 18:25 98.2 89 20 131/83 (99) 97 98.2 03/19/25 18:25 89 20 97 Room Air 03/19/25 18:23 98.3 72 16 146/103 (117) 98 98.3 Laboratory Tests Test 03/19/25 16:11 White Blood Count 13.5 10^3/uL (4.4-10.8) H Medications Medications Dose Ordered Sig/Natalie Route Start Time Stop Time Status Last Admin Dose Admin Ciprofloxacin HCl 1 drop Q4HR RIGHTEYE 03/20/25 02:00 03/20/25 01:20 1 DROP Levofloxacin/ Dextrose 100 ml @ 100 mls/hr ONCE ONCE IV 03/19/25 23:30 03/20/25 00:29 DC 03/20/25 00:26 100 MLS/HR Assessment/Plan Assessment/Plan Assessment Acute conjunctivitis Diabetes mellitus Leukocytosis Sinusitis Hypertension Plan Admit the patient to Med surge to the hospitalist Ciprofloxacin ophthalmic/Levaquin IV Resume home medications Continue treatment per orders. Plan discussed with: Patient My Orders Orders - FARIDA CEJA Procedure Category Date Status Time Ciprofloxacin 0.3% PHA 03/20/25 In Process Opthalmic (Cipro Opth 02:00 Levofloxacin 500mg PHA 03/20/25 Pending (Levaquin 500mg/ 100m 10:00 Atorvastatin (Lipitor) PHA 03/20/25 In Process 22:00 Carvedilol Tablet PHA 03/20/25 In Process (Coreg Tablet) 10:00 Sacubitril-Valsartan PHA 03/20/25 In Process (Entresto 24-26 Mg 10:00 Furosemide Tablet PHA 03/20/25 In Process (Lasix Tablet) 10:00 Basic Metabolic Panel LAB 03/20/25 Logged 04:00 Glucose Blood PHA 03/20/25 In Process (Accu-Chek Comfort 07:00 Insulin R (Human) PHA 03/20/25 In Process (Insulin R) 07:00 Dextrose 50% Syringe PHA 03/19/25 In Process 23:30 Admit ADMIT 03/19/25 Transmitted 23:27 Ondansetron Hcl PHA 03/19/25 In Process (Zofran) 23:30 Complete Blood Count LAB 03/20/25 Logged 04:00 Cardiac DIET 03/20/25 Transmitted Diet-2gna,Lofat,Lochol Breakfast Condition: Stable RACHEL 03/19/25 In Process 23:27 Bedrest With Bathroom RACHEL 03/19/25 In Process Privileg 23:27 Drug Screen LAB 03/19/25 Logged 23:27 Mrsa Screen KAY 03/20/25 Uncollected 00:18 Date of Service: Mar 19, 2025 Billing Provider: FARIDA CEJA Common Visit Codes: [id number] INP/OBS CARE (MOD) FARIDA CEJA Mar 20, 2025 01:25
[2025-03-20] MEDS: ACCU-CHEK COMFORT CURVE STRIP VI SCH (06:14)
[2025-03-20] MEDS: InsuLIN REG 1unit/0.01ml Soln (100units/ml) SC SCH (06:33)
[2025-03-20 07:29] LABS: Anion Gap 10 (5-15); Carbon Dioxide 23 mmol/L (20-31); Chloride 104 mmol/L (98-107); Potassium 3.9 mmol/L (3.5-5.1); Sodium 137 mmol/L (136-145)
[2025-03-20 07:30] LABS: Calcium 8.9 mg/dL (8.7-10.4)
[2025-03-20 07:35] LABS: BUN/Creatinine Ratio 13.8 (10.0-20.0); Blood Urea Nitrogen 15 mg/dL (9-23)
[2025-03-20 07:40] LABS: Glucose 147 mg/dL (74-106)
[2025-03-20 08:01] LABS: Hematocrit 34.7 % (36.0-46.0); Hemoglobin 10.9 g/dL (12.2-16.2); Mean Corpuscular Hemoglobin 24.0 pg (28.0-32.0); Mean Corpuscular Volume 76.5 fL (80.0-100.0); Nucleated Red Blood Cells % 0.1 %
[2025-03-20] MEDS: SACUBITRIL-VALSARTAN 24mg/26mg TAB PO SCH (09:48)
[2025-03-20] MEDS: CARVEDILOL 12.5 MG TAB PO SCH (09:48)
[2025-03-20] MEDS: FUROSEMIDE 40 MG TAB PO SCH (09:49)
--- NOTE | 2025-03-20 13:15 | DVHPN2 ---
Reviewed: Care Plan, H&P, Labs, Medications, Previous Orders, Radiology Changes from previous H/P or p: No Changes Objective Vitals Vital Signs Date Time Temp Pulse Resp B/P (MAP) Pulse Ox O2 Delivery O2 Flow Rate FiO2 03/20/25 09:49 167/88 03/20/25 09:48 90 03/20/25 09:00 98.3 18 97 98.3 03/20/25 08:00 Room Air* 0 21 Intake/Output Intake and Output 03/20/25 07:00 Intake Total 100 ml Balance 100 ml Intake Oral 0 ml IV Total 100 ml Medications Current Medications Medications Dose Ordered Sig/Natalie Route Start Time Stop Time Status Last Admin Dose Admin Ciprofloxacin HCl 1 drop Q4HR RIGHTEYE 03/20/25 02:00 03/20/25 09:49 1 DROP Levofloxacin/ Dextrose 100 ml @ 100 mls/hr DAILY IV 03/20/25 10:00 03/20/25 09:48 100 MLS/HR Atorvastatin Calcium 40 mg HS PO 03/20/25 22:00 Carvedilol 12.5 mg Q12HR PO 03/20/25 10:00 03/20/25 09:48 12.5 MG Sacubitril/ Valsartan 1 tab BID PO 03/20/25 10:00 03/20/25 09:48 1 TAB Furosemide 40 mg DAILY PO 03/20/25 10:00 03/20/25 09:49 40 MG Diagnostic Test (Pha) 1 strip ACHS 03/20/25 07:00 03/20/25 11:02 1 STRIP Insulin Human Regular ACHS SC 03/20/25 07:00 03/20/25 11:15 6 UNITS Dextrose 50 ml UD PRN IV 03/19/25 23:30 Ondansetron HCl 4 mg Q4HP PRN IV 03/19/25 23:30 Laboratory Results Laboratory Tests 03/20/25 06:49 Chemistry Test 03/19/25 16:11 03/20/25 06:49 Calcium Level 8.8 mg/dL (8.7-10.4) 8.9 mg/dL (8.7-10.4) Labs and/or images reviewed: Labs reviewed by me, Image(s) reviewed by me Assessment/Plan Assessment/Plan Acute conjunctivitis right: Cipro eyedrops Levaquin IV Left maxillary sinus polyp versus mass by CT, ordered MRI orbits without contrast Diabetes mellitus Leukocytosis Sinusitis Hypertension Diabetes Chronic current cocaine abuse: Counseled Bilateral upper outer thigh wounds secondary to cocaine injection: Wound consult vancomycin blood cultures Acute on chronic CHF exacerbation Flu test negative Spent 70 minutes Advanced care planning time 20 minutes Patient is full code Plan discussed with: Patient My Orders Orders - DESTINY BARNES MD Procedure Category Date Status Time * Wound Consult CONS 03/20/25 Transmitted Mri Orbits W Out MRI 03/20/25 Transmitted Contrast 13:06 Date of Service: Mar 20, 2025 Billing Provider: DESTINY BARNES MD Common Visit Codes: [id number] CARE 30-74 MIN DESTINY BARNES MD Mar 20, 2025 13:15
--- NOTE | 2025-03-20 16:43 | DVH ---
PROCEDURE: MRI MRI ORBITS W OUT CONTRAST INDICATION: Left maxillary polyp versus mass by CT Exam Date: 03/20/2025 02:55 PM COMPARISON: CT ORBITS WO CONTRAST on DOS: 03/19/25 TECHNIQUE: MRI of the orbit without intravenous contrast. FINDINGS: Redemonstration of masslike density centered over the left nasal cavity and left maxillary sinus whic h appears hypointense on T1 and heterogeneously hypointense on T2 with widening of the left maxillar y sinus ostium and complete opacification of the left maxillary sinus and left mid to inferior nasal cavity. There is polypoid extension over the left nasopharynx. There is nonspecific mild diffusion re striction of tissues within the left maxillary sinus and left nasal cavity. There is associated mucoperiosteal thickening of the left frontal and ethmoid sinuses with near-compl ete opacification of the left sphenoid sinus. There appears to be no involvement of the orbital apex or cavernous sinus. Flow voids are maintained. The orbits and globes are unremarkable. The optic nerves are unremarkable. Optic chiasm and visualize d optic tracts are unremarkable. No worrisome calvarial lesions. Mild mucosal thickening of the left mastoid air cells which is most likely associated with the polypo id extension over the left nasopharynx with minimal secretion within the left nasopharynx. IMPRESSION: Limited noncontrast imaging. Redemonstration of left nasal and maxillary sinus mass /polyp with expansion of the maxillary sinus o stium , complete opacification of the left maxillary sinus and left mid and lower nasal cavity and po lypoid extension over the left nasopharynx. ENT consultation is recommended. There is associated mucoperiosteal thickening of the left frontal and ethmoid sinuses with near-compl ete opacification of the left sphenoid sinus. The orbits and globes unremarkable. No intraorbital extension of the mass /polyp.
[2025-03-20] MEDS: ATORVASTATIN 20 MG TAB PO SCH (22:11)
[2025-03-21] VITALS (7 sets, daily range): BP systolic 128–179; BP diastolic 74–111; PULSE 62–120; RESP 17–21; TEMP 97.4–98.5; O2SAT 95–98
[2025-03-21] MEDS: hydrALAZINE HCL 20 MG/ML VL IV PRN (04:09)
[2025-03-21] MEDS: ONDANSETRON HCL 4 MG/2 ML VIAL IV PRN (04:09)
--- NOTE | 2025-03-21 10:59 | DVHPN2 ---
Reviewed: Care Plan, H&P, Labs, Medications, Previous Orders, Radiology Changes from previous H/P or p: No Changes Objective Vitals Vital Signs Date Time Temp Pulse Resp B/P (MAP) Pulse Ox O2 Delivery O2 Flow Rate FiO2 03/21/25 09:00 97.4 114 21 179/111 (133) 97 97.4 03/21/25 08:00 Room Air* 0 21 Intake/Output Intake and Output 03/21/25 07:00 Intake Total 1375 ml Balance 1375 ml Intake Oral 1275 ml IV Total 100 ml # Voids 7 # Bowel Movements 2 Medications Current Medications Medications Dose Ordered Sig/Natalie Route Start Time Stop Time Status Last Admin Dose Admin Ciprofloxacin HCl 1 drop Q4HR RIGHTEYE 03/20/25 02:00 03/21/25 09:15 1 DROP Levofloxacin/ Dextrose 100 ml @ 100 mls/hr DAILY IV 03/20/25 10:00 03/21/25 07:51 100 MLS/HR Atorvastatin Calcium 40 mg HS PO 03/20/25 22:00 03/20/25 22:11 40 MG Carvedilol 12.5 mg Q12HR PO 03/20/25 10:00 03/21/25 07:52 12.5 MG Sacubitril/ Valsartan 1 tab BID PO 03/20/25 10:00 03/21/25 07:51 1 TAB Furosemide 40 mg DAILY PO 03/20/25 10:00 03/21/25 07:52 40 MG Diagnostic Test (Pha) 1 strip ACHS 03/20/25 07:00 03/20/25 22:11 1 STRIP Insulin Human Regular ACHS SC 03/20/25 07:00 03/20/25 22:20 4 UNITS Dextrose 50 ml UD PRN IV 03/19/25 23:30 Ondansetron HCl 4 mg Q4HP PRN IV 03/19/25 23:30 03/21/25 04:09 4 MG Tramadol HCl 50 mg Q6HP PRN PO 03/20/25 16:00 Hydralazine HCl 10 mg Q6HP PRN IV 03/21/25 04:00 03/21/25 04:09 10 MG Laboratory Results Laboratory Tests 03/20/25 06:49 Microbiology Microbiology Date/Time Source Procedure Growth Status 03/20/25 01:00 Nose MRSA Screen - Final Complete Labs and/or images reviewed: Labs reviewed by me, Image(s) reviewed by me Assessment/Plan Assessment/Plan Bilateral upper outer thigh wounds secondary to cocaine injection: Wound consult vancomycin blood cultures Acute conjunctivitis right: Cipro eyedrops Levaquin IV Left maxillary sinus polyp versus mass by CT, confirmed by MRI orbits, outpatient follow up with the ENT Diabetes mellitus Leukocytosis Sinusitis Hypertension Diabetes Chronic current cocaine abuse: Counseled Acute on chronic CHF exacerbation Flu test negative Spent 70 minutes Advanced care planning time 20 minutes Patient is full code Plan discussed with: Patient My Orders Orders - DESTINY BARNES MD Procedure Category Date Status Time * Wound Consult CONS 03/20/25 Transmitted Mri Orbits W Out MRI 03/20/25 Resulted Contrast 13:06 Blood Culture KAY 03/20/25 In Process 13:15 Vancomycin Per RACHEL 03/20/25 In Process Pharmacy Protoc 13:15 Drug Screen LAB 03/20/25 Logged 13:16 Tramadol Hcl (Ultram) PHA 03/20/25 In Process 16:00 Apply: RACHEL 03/20/25 In Process 17:24 Date of Service: Mar 21, 2025 Billing Provider: DESTINY BARNES MD Common Visit Codes: [id number] INP/OBS CARE(HIGH) DESTINY BARNES MD Mar 21, 2025 10:59
[2025-03-22] VITALS (7 sets, daily range): BP systolic 116–165; BP diastolic 78–99; PULSE 98–111; RESP 18–21; TEMP 97.4–98.7; O2SAT 95–98
--- NOTE | 2025-03-22 11:19 | DVHPN2 ---
Reviewed: Care Plan, H&P, Labs, Medications, Previous Orders, Radiology Changes from previous H/P or p: No Changes Objective Vitals Vital Signs Date Time Temp Pulse Resp B/P (MAP) Pulse Ox O2 Delivery O2 Flow Rate FiO2 03/22/25 10:02 151/99 03/22/25 10:01 111 03/22/25 09:00 97.8 21 98 97.8 03/21/25 20:00 Room Air* 0 21 Intake/Output Intake and Output 03/22/25 07:00 Intake Total 3240 ml Balance 3240 ml Intake Oral 3140 ml IV Total 100 ml # Voids 11 # Bowel Movements 6 Medications Current Medications Medications Dose Ordered Sig/Natalie Route Start Time Stop Time Status Last Admin Dose Admin Ciprofloxacin HCl 1 drop Q4HR RIGHTEYE 03/20/25 02:00 03/22/25 10:02 1 DROP Levofloxacin/ Dextrose 100 ml @ 100 mls/hr DAILY IV 03/20/25 10:00 03/22/25 10:01 100 MLS/HR Atorvastatin Calcium 40 mg HS PO 03/20/25 22:00 03/21/25 21:30 40 MG Carvedilol 12.5 mg Q12HR PO 03/20/25 10:00 03/22/25 10:01 12.5 MG Sacubitril/ Valsartan 1 tab BID PO 03/20/25 10:00 03/22/25 10:01 1 TAB Furosemide 40 mg DAILY PO 03/20/25 10:00 03/22/25 10:02 40 MG Diagnostic Test (Pha) 1 strip ACHS 03/20/25 07:00 03/22/25 05:55 1 STRIP Insulin Human Regular ACHS SC 03/20/25 07:00 03/22/25 05:57 6 UNITS Dextrose 50 ml UD PRN IV 03/19/25 23:30 Ondansetron HCl 4 mg Q4HP PRN IV 03/19/25 23:30 03/21/25 04:09 4 MG Tramadol HCl 50 mg Q6HP PRN PO 03/20/25 16:00 Hydralazine HCl 10 mg Q6HP PRN IV 03/21/25 04:00 03/21/25 04:09 10 MG Laboratory Results Laboratory Tests 03/20/25 06:49 Microbiology Microbiology Date/Time Source Procedure Growth Status 03/20/25 19:17 Blood Blood Culture - Preliminary NO GROWTH AFTER 24 HOURS OF INCUBATION. Resulted 03/20/25 01:00 Nose MRSA Screen - Final Complete Labs and/or images reviewed: Labs reviewed by me, Image(s) reviewed by me Assessment/Plan Assessment/Plan Bilateral upper outer thigh wounds secondary to cocaine injection: Wound consult, vancomycin blood cultures negative Acute conjunctivitis right: Cipro eyedrops Levaquin IV Left maxillary sinus polyp versus mass by CT, confirmed by MRI orbits, outpatient follow up with the ENT Diabetes mellitus Leukocytosis Sinusitis Hypertension Diabetes Chronic current cocaine abuse: Counseled Acute on chronic CHF exacerbation Flu test negative Spent 50 minutes Advanced care planning time 20 minutes Patient is full code Plan discussed with: Patient My Orders Orders - DESTINY BARNES MD Procedure Category Date Status Time Communication Order ORDERS 03/21/25 Transmitted 13:01 Date of Service: Mar 22, 2025 Billing Provider: DESTINY BARNES MD Common Visit Codes: [id number] INP/OBS CARE(HIGH) DESTINY BARNES MD Mar 22, 2025 11:19
[2025-03-23 01:02] VITALS: BP 120/81; PULSE 93; RESP 18; TEMP 97.8; O2SAT 98
[2025-03-23 05:00] VITALS: BP 134/91; PULSE 93; RESP 18; TEMP 98; O2SAT 98
[2025-03-23 08:50] VITALS: BP 141/92; PULSE 96; RESP 16; TEMP 97.9; O2SAT 97
[2025-03-23] MEDS ORDERED: CLIN1CAP70 PO (12:16)
[2025-03-23] MEDS ORDERED: CIPR0.3S67 OP (12:16)
--- NOTE | 2025-03-23 12:20 | DVHDS2 ---
Discharge Summary Date of Admission Mar 19, 2025 at 23:27 Date of Discharge: Mar 23, 2025 Admitting Diagnosis Bilateral hip wounds Wounds: Bilateral hip wounds Labs/Diagnostic Data: Laboratory Results Test 03/23/25 11:19 03/20/25 19:12 03/20/25 06:49 03/20/25 06:12 POC Glucose 241 mg/dl (70-106) Plasma/Serum Blood Alcohol 5.0 mg/dL (<10) White Blood Count 13.0 10^3/uL (4.4-10.8) Red Blood Count 4.54 10^6/uL (4.0-5.20) Hemoglobin 10.9 g/dL (12.2-16.2) Hematocrit 34.7 % (36.0-46.0) Mean Corpuscular Volume 76.5 fL (80.0-100.0) Mean Corpuscular Hemoglobin 24.0 pg (28.0-32.0) Mean Corpuscular Hemoglobin Concent 31.4 g/dL (32.0-36.0) Red Cell Distribution Width 16.3 % (11.8-14.3) Platelet Count 399 10^3/uL (140-450) Mean Platelet Volume 7.8 fL (6.9-10.8) Neutrophils (%) (Auto) 88.6 % (37.0-80.0) Lymphocytes (%) (Auto) 6.7 % (10.0-50.0) Monocytes (%) (Auto) 4.3 % (0.0-12.0) Eosinophils (%) (Auto) 0.1 % (0.0-7.0) Basophils (%) (Auto) 0.3 % (0.0-2.0) Neutrophils # (Auto) 11.5 10 ^3/uL (1.6-8.6) Lymphocytes # (Auto) 0.9 10 ^3/uL (0.4-5.4) Monocytes # (Auto) 0.6 10 ^3/uL (0-1.3) Eosinophils # (Auto) 0 10 ^3/uL (0-0.8) Basophils # (Auto) 0 10 ^3/uL (0-0.2) Nucleated Red Blood Cells 0.1 % Sodium Level 137 mmol/L (136-145) Potassium Level 3.9 mmol/L (3.5-5.1) Chloride Level 104 mmol/L (98-107) Carbon Dioxide Level 23 mmol/L (20-31) Anion Gap 10 (5-15) Blood Urea Nitrogen 15 mg/dL (9-23) Creatinine 1.09 mg/dL (0.550-1.02) Glomerular Filtration Rate Calc 55 mL/min (>90) BUN/Creatinine Ratio 13.8 (10.0-20.0) Serum Glucose 147 mg/dL (74-106) Calcium Level 8.9 mg/dL (8.7-10.4) Influenza Type A Antigen Negative (Negative) Influenza Type B Antigen Negative (Negative) Other Laboratory Tests 03/20/25 06:49 Brief Hx & Hospital Course: 69-year-old female with a history of chronic cocaine abuse hypertension diabetes sinusitis CHF came in complaining of bilateral hip wounds which are dry and healing secondary to cocaine abuse also had right conjunctivitis treated with Cipro eyedrops patient was treated with a vancomycin blood cultures negative MRI orbits showed a polyp versus mass in the left maxillary sinus advised to follow up with the ENT Dr. Flu test is negative discharged home. Prescription for clindamycin tablets and Cipro eyedrops transmitted to pharmacy Consults/Reason for consult None Operations or Procedures None Condition at Discharge: Fair Final Diagnosis/Problems List Bilateral upper outer thigh wounds secondary to cocaine injection: Wound consult, vancomycin blood cultures negative Acute conjunctivitis right: Cipro eyedrops Levaquin IV Left maxillary sinus polyp versus mass by CT, confirmed by MRI orbits, outpatient follow up with the ENT Diabetes mellitus Leukocytosis Sinusitis Hypertension Diabetes Chronic current cocaine abuse: Counseled Acute on chronic CHF exacerbation Flu test negative Discharge Disposition: Home Discharge Instruct/Medications Diet: Cardiac 2g Na,low cholest Activity: Light activity Follow Up/Referral: Follow up with the primary Dr in one week Medications: Clindamycin Cipro eyedrops Transmitted to [facility] Aspirin (Aspir-81), 81 MG PO DAILY, (Reported) Atorvastatin Calcium (Lipitor), 40 MG PO DAILY, (Reported) Carvedilol (Coreg), 1 TAB PO BID, (Reported) Ciprofloxacin HCl (Ophth) (Ciprofloxacin Hydrochlori), 0.3 % OP Q4HR Clindamycin Hcl (Clindamycin Hcl), 1 CAP PO TID Furosemide (Lasix), 1 TAB PO DAILY, (Reported) Insulin Regular (Human) (Humulin R), UNIT SC ACHS, (Reported) Linezolid (Zyvox), 600 MG PO BID Metformin Hydrochloride (Metformin Hcl), 1 TAB PO BID, (Reported) Multiple Vitamins W/ Minerals (Centrum Multivitamin Flav), 1 POW PO DAILY, (Reported) Sacubitril-Valsartan (Entresto 97-103 mg), 1 TAB PO BID, (Reported) 35 (Time taken for discharge summary 35 minutes) Discharge Statement: "Patient was advised to return to the ER or call 911 if any headaches, dizziness, shortness of breath, chest pain, abdominal pain, bleeding, fevers, or worsening of medical condition. Patient was counseled about treatment plan, medications, possible side effects, patientverbalized understanding. All questions were answered to the best of my ability. This discharge took greater then 30 minutes in planning, reviewing documentation, counseling the patient, and discussing with other team members." ASSESSMENT ASSESSMENT Hospital Course Improved Assessment Bilateral upper outer thigh wounds secondary to cocaine injection: Wound consult, vancomycin blood cultures negative Acute conjunctivitis right: Cipro eyedrops Levaquin IV Left maxillary sinus polyp versus mass by CT, confirmed by MRI orbits, outpatient follow up with the ENT Diabetes mellitus Leukocytosis Sinusitis Hypertension Diabetes Chronic current cocaine abuse: Counseled Acute on chronic CHF exacerbation Flu test negative Date of Service: Mar 23, 2025 Billing Provider: DESTINY BARNES MD Common Visit Codes: [id number] DISCH DAY >30min EDSTINY BARNES MD Mar 23, 2025 12:20
[2025-03-23 12:58] VITALS: BP 114/74; PULSE 94; RESP 16; TEMP 97.9; O2SAT 99
[2025-03-23 13:21] VITALS: BP 134/91
== END 2025-03-23 15:02 | disposition home or self-care (01) | DRG 125 ==
LOC: ER 14:27 → OVERFLOW 23:27 → WEST WING 03-20 00:48
PROVIDERS: ADMIT Family Medicine; ATTEND Family Medicine
DX: H10.31 Unspecified acute conjunctivitis, right eye (principal); T80.29XA Infection following other infusion, transfusion and therapeutic injection, initial encounter; I11.0 Hypertensive heart disease with heart failure; E11.9 Type 2 diabetes mellitus without complications; I50.9 Heart failure, unspecified; J01.00 Acute maxillary sinusitis, unspecified; F14.10 Cocaine abuse, uncomplicated; S71.102A Unspecified open wound, left thigh, initial encounter; S71.101A Unspecified open wound, right thigh, initial encounter; X58.XXXA Exposure to other specified factors, initial encounter; Y84.8 Other medical procedures as the cause of abnormal reaction of the patient, or of later complication, without mention of misadventure at the time of the procedure; Z88.6 Allergy status to analgesic agent; Y93.89 Activity, other specified; Y92.89 Other specified places as the place of occurrence of the external cause; Y99.8 Other external cause status
CPT/HCPCS: 36415; 70480; 70540; 80048; 80320; 82962; 85025; 87040; 87081; 87804; 96365; G0378; J1815; J1956; J2405

== ENCOUNTER 2025-04-30 14:30 | Outpatient (CLI) | payer MEDICARE, MEDICAID ==
[~2025-04-30 14:30] MED LIST changes: +CIPR0.3S67 OP; +CLIN1CAP70 PO
[2025-04-30 14:53] LABS: Hematocrit 32.2 % (36.0-46.0); Hemoglobin 10.3 g/dL (12.2-16.2); Mean Corpuscular Hemoglobin 24.3 pg (28.0-32.0); Mean Corpuscular Volume 75.9 fL (80.0-100.0); Nucleated Red Blood Cells % 0.0 %
[2025-04-30 15:16] LABS: Albumin 3.7 g/dL (3.2-4.8); Anion Gap 11 (5-15); BUN/Creatinine Ratio 11.2 (10.0-20.0); Blood Urea Nitrogen 16 mg/dL (9-23); Carbon Dioxide 23 mmol/L (20-31); Chloride 102 mmol/L (98-107); Potassium 4.6 mmol/L (3.5-5.1); Total Protein 8.2 g/dL (5.7-8.2)
[2025-04-30 15:17] LABS: Alanine Aminotransferase < 9 U/L (7-40); Alkaline Phosphatase 144 U/L (46-116); Bilirubin, Total 0.4 mg/dL (0.2-1.0); Calcium 8.4 mg/dL (8.7-10.4); Glucose 234 mg/dL (74-106); Sodium 136 mmol/L (136-145)
== END 2025-05-01 17:00 | disposition home or self-care (01) ==
LOC: LAB 14:30
PROVIDERS: ATTEND Internal Medicine
DX: I13.0 Hypertensive heart and chronic kidney disease with heart failure and stage 1 through stage 4 chronic kidney disease, or unspecified chronic kidney disease (principal); E11.22 Type 2 diabetes mellitus with diabetic chronic kidney disease; I50.9 Heart failure, unspecified; N18.9 Chronic kidney disease, unspecified
CPT/HCPCS: 36415; 80053; 85025

== ENCOUNTER → 2025-06-10 | Outpatient (CLI) | payer MEDICARE, MEDICAID ==
[2025-06-10 14:12] LABS: Alanine Aminotransferase 12 U/L (7-40); Albumin 3.9 g/dL (3.2-4.8); Anion Gap 10 (5-15); BUN/Creatinine Ratio 16.5 (10.0-20.0); Blood Urea Nitrogen 17 mg/dL (9-23); Calcium 8.9 mg/dL (8.7-10.4); Carbon Dioxide 23 mmol/L (20-31); Chloride 105 mmol/L (98-107); Potassium 4.3 mmol/L (3.5-5.1); Sodium 138 mmol/L (136-145)
[2025-06-10 14:13] LABS: Alkaline Phosphatase 165 U/L (46-116); Bilirubin, Total 0.5 mg/dL (0.2-1.0); Glucose 153 mg/dL (74-106); Total Protein 8.7 g/dL (5.7-8.2)
[2025-06-10 16:57] LABS: Triglycerides 133 mg/dL (< 150)
[2025-06-10 16:59] LABS: Cholesterol 78 mg/dL (< 200); HDL Cholesterol 25 mg/dL (40-59)
== END | disposition home or self-care (01) ==
LOC: LAB 12:32
PROVIDERS: ATTEND Internal Medicine
DX: I13.0 Hypertensive heart and chronic kidney disease with heart failure and stage 1 through stage 4 chronic kidney disease, or unspecified chronic kidney disease (principal); E11.22 Type 2 diabetes mellitus with diabetic chronic kidney disease; N18.4 Chronic kidney disease, stage 4 (severe); I50.9 Heart failure, unspecified; E11.69 Type 2 diabetes mellitus with other specified complication; E78.5 Hyperlipidemia, unspecified
CPT/HCPCS: 36415; 80053; 80061; 83036